=== PATIENT | male | born 1950 | race Caucasian/White ===

== ENCOUNTER → 2017-04-11 | Outpatient (CLI) | payer OTHER ==
[2016-05-11 12:08] VITALS: BMI 34.4
[~2017-04-11] MED LIST: ALBU8.5H IH; ALPR-429 PO; ALPR-448 PO; AMIL5TAB11 PO; AMLO-96 PO; AMLO-99 PO; AMOX-362 PO; ATOR10TA24 PO; ATOR10TA65 PO; AZAT50TA44 PO; CEFE2VIA13 IJ; CEPH500C24 PO; CHLOR25 PO; CIPR-344 PO; CITA-139 PO; CITA-141 PO; CYA1000 PO; CYAN100015 PO; CYAN100088 PO; CYAN1TAB4 SL; CYAN250T15 PO; DEX4 PO; DIPH0.5D12 IM; DOCU-202 PO; DOCU-416; DOCU-416 PO; FAMO20TA28 PO; FLU IM; FURO-45 PO; HYDR-385 PO; HYDR-4225 PO; IBUP-1671 PO; LEVO-85 PO; LEVO50TA86 PO; LORA-1455 PO; LOSA100T62 PO; LOSA25TA47 PO; LOSA25TA50 PO; LOSA50TA72 PO; MAGN400C PO; MAGN500T6 PO; METO-235 PO; METO-253 PO; METO50TA19 PO; ONDA4TAB PO; ONDA8TAB91 PO; ONDA8TAB94 PO; OXYC-373 PO; OXYC-823 PO; OXYC-865 PO; PANT20TA26 PO; PANT40TA65 PO; PENI-24 PO; PER PO; PHEN100T27 PO; PHEN200T32 PO; PNEU0.5D3 IM; ROS10 PO; ROSU20TA13 PO; SODI325T7 PO; SPIR25TA78 PO; SULF-198 PO; TAMS0.4C25 PO
[2017-04-11 14:47] LABS: PLATELET COUNT, AUTOMATED 134 K/uL (150-450)
== END ==
LOC: LAB 14:25
PROVIDERS: ATTEND Internal Medicine Nephrology
DX: I12.9 Hypertensive chronic kidney disease with stage 1 through stage 4 chronic kidney disease, or unspecified chronic kidney disease (principal); N18.3 Chronic kidney disease, stage 3 (moderate); R80.1 Persistent proteinuria, unspecified; D50.9 Iron deficiency anemia, unspecified
CPT/HCPCS: 36415; 82040; 82247; 82310; 82374; 82435; 82565; 82570; 82947; 83735; 84075; 84132; 84155; 84156; 84295; 84450; 84460; 84520; 85025

== ENCOUNTER 2017-05-09 16:00 | Emergency (ER) | payer OTHER ==
[2016-05-11 12:08] VITALS: Ht 177.8 cm; Wt 97.5 kg
[~2017-05-09] VITALS: Ht 177.8 cm; Wt 97.5 kg
[~2017-05-09 16:00] MED LIST changes: +HYDR30CR10 TOP
[2017-05-09] MEDS ORDERED: VITAMIN B 12 (16:16)
--- NOTE | 2017-05-09 16:19 | ER Report ---
History and Physical Time Seen By MD: 16:02 Hx. of Stated Complaint: PT PRESENTS WITH RECNET HX OF ELEVATED BP AND SWOLLEN LEGS FOR A FEW DAYS. CALLED HIS MD TO MAKE APPT, AND WAS TOLD TO COME HERE. PT STATES FEELS OK NOW (HOLDEN MILES DO) HPI/ROS CHIEF COMPLAINT: sob and lower extremity edema HISTORY OF PRESENT ILLNESS: Pts blood pressure has been elevated last few days 170/90. Pt has also noticed lower leg swelling b/l. Pt has felt some sob and chest tightness with walking last few days. pt denies cardiac ds. States he had catherization 10 yrs ago which was normal. Pt currently feeling well. no nausea. Denies sob when lying down. no fevers or coughs. REVIEW OF SYSTEMS: Constitutional: No fever, no chills. Eyes: No discharge. ENT: No sore throat. Cardiovascular: + chest pain, no palpitations, + lower extremity edema Respiratory: No cough, + shortness of breath. Gastrointestinal: No abdominal pain, no vomiting. Genitourinary: No hematuria. Musculoskeletal: No back pain. Skin: No rashes. Neurological: No headache. (HOLDEN MILES DO) Allergies: Coded Allergies: No Known Drug Allergies (Unverified , 05/09/17) Home Meds Active Scripts Hydrocortisone 2.5 % 30 GM CREAM (Hydrocortisone 2.5 % 30 GM CREAM) 2.5 % Cream.appl, 1 APPLIC TOP BID for 30 Days, #30 GM 1 Refill Prov:HIMANSHU VELEZ NPC 04/17/17 Alprazolam (XANAX) 0.5 Mg Tablet, 0.5 TAB PO BID Y for ANXIETY, #60 TAB Prov:ASIA STYLES MD 04/16/17 Rosuvastatin Calcium (Rosuvastatin Calcium) 20 Mg Tablet, 1 TAB PO DAILY, #90 TAB 3 Refills Prov:ASIA STYLES MD 04/03/17 Levothyroxine Sodium (LEVOTHYROXINE SODIUM) 50 Mcg Tablet, 1 TAB PO QAM, #90 TAB 3 Refills Prov:ASIA STYLES MD 10/14/16 Metoprolol Succinate (METOPROLOL SUCCINATE) 50 Mg Tab.er.24h, 0.5 TAB PO DAILY, #90 TAB 3 Refills Prov:ASIA STYLES MD 09/27/16 Amlodipine Besylate (AMLODIPINE BESYLATE) 10 Mg Tablet, 1 TAB PO QDAY, #90 TAB 3 Refills Prov:ASIA STYLES MD 06/03/16 Reported Medications [Vitamin B 12] No Conflict Check 05/09/17 Losartan Potassium (COZAAR) 25 Mg Tablet, 25 MG PO BID 04/03/17 Citalopram Hydrobromide (CITALOPRAM HBR) 20 Mg Tablet, 20 MG PO QDAY, #5 TAB 06/17/16 Past Medical/Surgical History Pmhx: sleep apnea, chf, uti, hypothyroid, hyperlipid, polyps in colon, bladder/ prostatesca, renal insufficiency, htn Pshx: iliostomy, kandi, prostectomy, cystectomy, nephrostomy tubes which have been removed. (HOLDEN MILES DO) Hx Smoking: No Smoking Status: Never Smoker Exposure to Second Hand Smoke?: No Hx Substance Use Disorder: No Hx Alcohol Use: No (HOLDEN MILES DO) Constitutional Vital Sign - Last 24 Hours 05/09/17 05/09/17 05/09/17 05/09/17 16:04 16:05 16:30 17:40 Temp 98.7 Pulse 71 63 Resp 20 26 B/P (MAP) 173/90 (117) 173/90 149/82 (104) 140/83 (102) Pulse Ox 94 91 O2 Delivery Room Air 05/09/17 05/09/17 05/09/17 05/09/17 17:45 18:15 18:45 19:15 Pulse 56 57 56 53 Resp 18 19 19 14 Pulse Ox 91 05/09/17 05/09/17 05/09/17 05/09/17 19:20 19:50 20:01 20:20 Pulse 52 52 51 Resp 14 18 16 B/P (MAP) 124/71 (88) Pulse Ox 89 05/09/17 05/09/17 20:30 20:50 Pulse 85 Resp 16 B/P (MAP) 127/74 (91) 132/82 (99) Pulse Ox 95 O2 Delivery Room Air Intake and Output 05/09/17 05/09/17 05/10/17 15:00 23:00 07:00 Intake Total 100 ml Balance 100 ml (HILDA MORRIS MD) Physical Exam General Appearance: The patient is alert, has no immediate need for airway protection and no signs of toxicity. Eyes: Pupils equal and round no pallor or injection, EOMI ENT: no pharyngeal erythema or exudates, Mucous membranes are moist, TM are nl b/l Respiratory: There are no retractions, lungs are clear to auscultation. Cardiovascular: Regular rate and rhythm. pulses are equal and symmetrical Gastrointestinal: Abdomen is soft and non tender, no masses, bowel sounds normal, no guarding, no rigidity or rebound Neurological: Cranial nerves II-XII grossly intact, no sensory or motor loss Skin: Warm and dry, no rashes. Musculoskeletal: Neck is supple non tender, no vertebral tenderness Extremities are nontender, +1 pitting edema b/l, full range of motion. DIFFERENTIAL DIAGNOSIS: After history and physical exam differential diagnosis was considered for chf, renal ds, electrolyte abnl, low albumin (LAURORA,HOLDEN V DO) Medical Decision Making Data Points Result Diagram: 05/09/17 1611 05/09/17 1611 Laboratory Hematology Test 05/09/17 16:11 05/09/17 19:58 05/09/17 20:49 Red Blood Count 3.89 M/uL (4.00-5.60) Mean Corpuscular Volume 81.3 fL (80.0-96.0) Mean Corpuscular Hemoglobin 28.3 pg (26.0-33.0) Mean Corpuscular Hemoglobin Concent 34.8 g/dL (32.0-36.0) Red Cell Distribution Width 15.8 % (11.5-14.5) Mean Platelet Volume 6.6 fL (7.2-11.1) Neutrophils (%) (Auto) 68.3 % (39.4-72.5) Lymphocytes (%) (Auto) 18.3 % (17.6-49.6) Monocytes (%) (Auto) 8.5 % (4.1-12.4) Eosinophils (%) (Auto) 4.2 % (0.4-6.7) Basophils (%) (Auto) 0.7 % (0.3-1.4) Nucleated RBC Relative Count (auto) 0.1 /100WBC Neutrophils # (Auto) 3.8 K/uL (2.0-7.4) Lymphocytes # (Auto) 1.0 K/uL (1.3-3.6) Monocytes # (Auto) 0.5 K/uL (0.3-1.0) Eosinophils # (Auto) 0.2 K/uL (0.0-0.5) Basophils # (Auto) 0.0 K/uL (0.0-0.1) Nucleated RBC Absolute Count (auto) 0.00 K/uL Sodium Level 138 mmol/L (137-145) Potassium Level 4.0 mmol/L (3.5-5.0) Chloride Level 105 mmol/L (98-107) Carbon Dioxide Level 19 mmol/L (22-30) Blood Urea Nitrogen 36 mg/dl (9-21) Creatinine 2.50 mg/dl (0.66-1.25) Glomerular Filtration Rate Calc 26.0 Random Glucose 105 mg/dl (75-110) Calcium Level 9.4 mg/dl (8.4-10.2) Magnesium Level 1.5 mg/dl (1.7-2.2) Total Bilirubin 0.7 mg/dl (0.2-1.3) Aspartate Amino Transf (AST/SGOT) 19 U/L (0-35) Alanine Aminotransferase (ALT/SGPT) 34 U/L (0-56) Alkaline Phosphatase 109 U/L (0-126) B-Type Natriuretic Peptide 19 pg/ml (0-100) Total Protein 7.3 gm/dl (6.3-8.2) Albumin 4.2 g/dl (3.5-5.0) Troponin I < 0.012 ng/ml Urine Color Straw Urine Clarity Clear Urine pH 6.0 pH (4.8-9.5) Urine Specific [place] 1.008 Urine Protein Negative mg/dL (NEGATIVE) Urine Glucose (UA) Negative mg/dL (NEGATIVE) Urine Ketones Negative mg/dL (NEGATIVE) Urine Blood Moderate (NEGATIVE) Urine Nitrite Negative (NEGATIVE) Urine Bilirubin Negative (NEGATIVE) Urine Urobilinogen Negative mg/dL (0.2-1.9) Urine Leukocyte Esterase Small (NEGATIVE) Urine RBC 10 /HPF (0-2/HPF) Urine WBC 12 /HPF (0-5/HPF) Urine Squamous Epithelial Cells Few /LPF (NONE-FEW) Urine Renal Epithelial Cells Few /LPF (NONE-FEW) Urine Bacteria Negative /HPF (NONE-FEW) Urine Mucus None /HPF (NONE-FEW) Chemistry Test 05/09/17 16:11 05/09/17 19:58 05/09/17 20:49 White Blood Count 5.6 k/uL (4.5-11.0) Red Blood Count 3.89 M/uL (4.00-5.60) Hemoglobin 11.0 g/dL (14.0-18.0) Hematocrit 31.6 % (42.0-52.0) Mean Corpuscular Volume 81.3 fL (80.0-96.0) Mean Corpuscular Hemoglobin 28.3 pg (26.0-33.0) Mean Corpuscular Hemoglobin Concent 34.8 g/dL (32.0-36.0) Red Cell Distribution Width 15.8 % (11.5-14.5) Platelet Count 109 K/uL (150-450) Mean Platelet Volume 6.6 fL (7.2-11.1) Neutrophils (%) (Auto) 68.3 % (39.4-72.5) Lymphocytes (%) (Auto) 18.3 % (17.6-49.6) Monocytes (%) (Auto) 8.5 % (4.1-12.4) Eosinophils (%) (Auto) 4.2 % (0.4-6.7) Basophils (%) (Auto) 0.7 % (0.3-1.4) Nucleated RBC Relative Count (auto) 0.1 /100WBC Neutrophils # (Auto) 3.8 K/uL (2.0-7.4) Lymphocytes # (Auto) 1.0 K/uL (1.3-3.6) Monocytes # (Auto) 0.5 K/uL (0.3-1.0) Eosinophils # (Auto) 0.2 K/uL (0.0-0.5) Basophils # (Auto) 0.0 K/uL (0.0-0.1) Nucleated RBC Absolute Count (auto) 0.00 K/uL Glomerular Filtration Rate Calc 26.0 Calcium Level 9.4 mg/dl (8.4-10.2) Magnesium Level 1.5 mg/dl (1.7-2.2) Total Bilirubin 0.7 mg/dl (0.2-1.3) Aspartate Amino Transf (AST/SGOT) 19 U/L (0-35) Alanine Aminotransferase (ALT/SGPT) 34 U/L (0-56) Alkaline Phosphatase 109 U/L (0-126) B-Type Natriuretic Peptide 19 pg/ml (0-100) Total Protein 7.3 gm/dl (6.3-8.2) Albumin 4.2 g/dl (3.5-5.0) Troponin I < 0.012 ng/ml Urine Color Straw Urine Clarity Clear Urine pH 6.0 pH (4.8-9.5) Urine Specific [place] 1.008 Urine Protein Negative mg/dL (NEGATIVE) Urine Glucose (UA) Negative mg/dL (NEGATIVE) Urine Ketones Negative mg/dL (NEGATIVE) Urine Blood Moderate (NEGATIVE) Urine Nitrite Negative (NEGATIVE) Urine Bilirubin Negative (NEGATIVE) Urine Urobilinogen Negative mg/dL (0.2-1.9) Urine Leukocyte Esterase Small (NEGATIVE) Urine RBC 10 /HPF (0-2/HPF) Urine WBC 12 /HPF (0-5/HPF) Urine Squamous Epithelial Cells Few /LPF (NONE-FEW) Urine Renal Epithelial Cells Few /LPF (NONE-FEW) Urine Bacteria Negative /HPF (NONE-FEW) Urine Mucus None /HPF (NONE-FEW) Urinalysis Test 05/09/17 20:49 Urine Color Straw Urine Clarity Clear Urine pH 6.0 pH (4.8-9.5) Urine Specific [place] 1.008 Urine Protein Negative mg/dL (NEGATIVE) Urine Glucose (UA) Negative mg/dL (NEGATIVE) Urine Ketones Negative mg/dL (NEGATIVE) Urine Blood Moderate (NEGATIVE) Urine Nitrite Negative (NEGATIVE) Urine Bilirubin Negative (NEGATIVE) Urine Urobilinogen Negative mg/dL (0.2-1.9) Urine Leukocyte Esterase Small (NEGATIVE) Urine RBC 10 /HPF (0-2/HPF) Urine WBC 12 /HPF (0-5/HPF) Urine Squamous Epithelial Cells Few /LPF (NONE-FEW) Urine Renal Epithelial Cells Few /LPF (NONE-FEW) Urine Bacteria Negative /HPF (NONE-FEW) Urine Mucus None /HPF (NONE-FEW) (HILDA MORRIS MD) EKG/Imaging EKG Interpretation nsr @ 60 (HOLDEN MILES DO) ED Course/Re-evaluation Clinical Indication for ER IV: IV Access ED Course 05/09/2017 5:05:07 pm Will replace pts magnesium. Pt states he has had trouble with his mag levels ever since he had chemo and surgery. Recommend he stays for second troponin. 05/09/2017 5:52:14 pm Magnesium being replaced. Awaiting second troponin signing out to Dr. Morris. Decision to Disposition Date: May 09, 2017 (HOLDEN MILES DO) ED Course I discussed this patient with Dr. Miles at shift change an assumed care. Patient had some shortness of breath and some mild lower extremity edema. Initial troponin was negative. Negative labs initially as noted. Second troponin done and negative. Reviewed labs with the patient. He has an appointment with Dr. Styles on Friday which he will keep. Recommended discussing possible stress testing with Dr. Styles. Decision to Disposition Date: May 09, 2017 Decision to Disposition Time: 20:38 (HILDA MORRIS MD) Depart Departure Latest Vital Signs Vital Signs Date Time Temp Pulse Resp B/P (MAP) Pulse Ox O2 Delivery O2 Flow Rate FiO2 05/09/17 20:50 85 16 132/82 (99) 95 Room Air 05/09/17 16:05 98.7 (HILDA MORRIS MD) Core Temperature (Celsius): 37.11 (HOLDEN MILES DO) Impression: Primary Impression: Hypomagnesemia Additional Impression: Shortness of breath Condition: Improved Disposition: HOME OR SELF-CARE Referrals: ASIA STYLES MD (PCP) Patient Instructions: Dyspnea (ED), Hypomagnesemia (ED) Additional Instructions: Keep your follow-up appointment with Dr. Styles next week. Discuss possible need for stress testing with her. Light to moderate activity this weekend. Problem Qualifiers HOLDEN MILES DO May 09, 2017 16:19 IHLDA MORRIS MD May 09, 2017 18:47
[2017-05-09 16:21] LABS: PLATELET COUNT, AUTOMATED 109 K/uL (150-450)
--- NOTE | 2017-05-09 16:32 | EKG ---
FACILITY: [facility] [place] PATIENT NAME: ANKITA BLACKWOOD : [id number] MR: [id number] V: [id number] EXAM DATE: ORDERING PHYSICIAN: HOLDEN MILES TECHNOLOGIST: Test Reason : Blood Pressure : / mmHG Vent. Rate : 063 BPM Atrial Rate : 063 BPM P-R Int : 160 ms QRS Dur : 100 ms QT Int : 430 ms P-R-T Axes : 035 040 035 degrees QTc Int : 440 ms Normal sinus rhythm Normal ECG When compared with ECG of 22-DEC-2016 11:58, No significant change was found Confirmed by VERONICA CRAWFORD ([id number]) on 05/10/2017 7:45:04 AM Referred By: Confirmed By:VERONICA CRAWFORD
[2017-05-09] MEDS ORDERED: MAGNESIUM SUL 50% 1GM/2ML VIAL IVP ONE (16:50)
[2017-05-09] MEDS ORDERED: cloNIDine HCL 0.1 MG TAB PO ONE (16:50)
[2017-05-09] MEDS ORDERED: NS(*) 0.9% 100 ML BAG 100 ML ONE (16:56)
--- NOTE | 2017-05-09 17:18 | RADIOLOGY IMAGING REPORT ---
FACILITY: [facility] PATIENT NAME: Christiano Montes : 1950 MR: [id number] V: [id number] EXAM DATE: ORDERING PHYSICIAN: HOLDEN MILES TECHNOLOGIST: Location: [facility] Patient: Christiano Montes : 1950 Visit/Account:[id number] Date of Sevice: 05/09/2017 INDICATION: Chest Pain. DATE: 05/09/2017 5:07 PM. TECHNIQUE: CHEST PA AND LAT COMPARISON: None FINDINGS: Heart size is normal. No effusion, consolidation, or pneumothorax. IMPRESSION: No acute findings. Report Dictated By: Chuyita Montes De Oca MD at 05/09/2017 5:07 PM Report E-Signed By: Chuyita Montes De Oca MD at 05/09/2017 5:13 PM WSN:[id number]
[2017-05-09 20:50] VITALS: BP 132/82
== END 2017-05-09 20:51 | disposition home or self-care (01) ==
LOC: ER 16:32
DX: E83.42 Hypomagnesemia (principal); R06.02 Shortness of breath
CPT/HCPCS: 36415; 71046; 81001; 83735; 83880; 84484; 85025; 87077; 87088; 87186; 93005; 96365; 99284; J3475; J7050; 82040; 82247; 82310; 82374; 82435; 82565; 82947; 84075; 84132; 84155; 84295; 84450; 84460; 84520

== ENCOUNTER 2017-05-22 17:03 | Emergency (ER) | payer OTHER ==
[2016-05-11 12:08] VITALS: Ht 177.8 cm; Wt 104.3 kg
[~2017-05-22] VITALS: Ht 177.8 cm; Wt 104.3 kg
[~2017-05-22 17:03] MED LIST changes: +VITAMIN B 12
[2017-05-22 17:17] VITALS: BP 163/78
[2017-05-22] MEDS ORDERED: NYST15PO4 TP (17:45)
--- NOTE | 2017-05-22 17:49 | ER Report ---
History and Physical Time Seen By MD: 17:43 Hx. of Stated Complaint: pt notes red ring around stoma, denies itching burning or pain HPI/ROS CHIEF COMPLAINT: Red ring around stoma site HISTORY OF PRESENT ILLNESS: Patient is a 66-year-old male who has a history of a bladder stoma he recently was started on antibiotics for urinary tract infection. He currently is taking Cipro and clindamycin. Today while changing of the stoma bag they noticed a red ring on the skin around the stoma. Patient denies any discomfort burning or pain. Allergies: Coded Allergies: No Known Drug Allergies (Unverified , 05/22/17) Home Meds Active Scripts Nystatin 100,000 Unit/Gm Top Powder (NYSTATIN 100,000 UNIT/GM TOP POWDER) 15 Gm Powder, 15 GM TP BID for 10 Days, #1 TUBE 0 Refills Prov:BERTO ZAMUDIO MD 05/22/17 Hydrocortisone 2.5 % 30 GM CREAM (Hydrocortisone 2.5 % 30 GM CREAM) 2.5 % Cream.appl, 1 APPLIC TOP BID for 30 Days, #30 GM 1 Refill Prov:HIMANSHU VELEZ NPC 04/17/17 Alprazolam (XANAX) 0.5 Mg Tablet, 0.5 TAB PO BID Y for ANXIETY, #60 TAB Prov:ASIA LOPEZ MD 04/16/17 Rosuvastatin Calcium (Rosuvastatin Calcium) 20 Mg Tablet, 1 TAB PO DAILY, #90 TAB 3 Refills Prov:ASIA LOPEZ MD 04/03/17 Levothyroxine Sodium (LEVOTHYROXINE SODIUM) 50 Mcg Tablet, 1 TAB PO QAM, #90 TAB 3 Refills Prov:ASIA LOPEZ MD 10/14/16 Metoprolol Succinate (METOPROLOL SUCCINATE) 50 Mg Tab.er.24h, 0.5 TAB PO DAILY, #90 TAB 3 Refills Prov:ASIA LOPEZ MD 09/27/16 Amlodipine Besylate (AMLODIPINE BESYLATE) 10 Mg Tablet, 1 TAB PO QDAY, #90 TAB 3 Refills Prov:ASIA LOPEZ MD 06/03/16 Reported Medications [Vitamin B 12] No Conflict Check 05/09/17 Losartan Potassium (COZAAR) 25 Mg Tablet, 25 MG PO BID 04/03/17 Citalopram Hydrobromide (CITALOPRAM HBR) 20 Mg Tablet, 20 MG PO QDAY, #5 TAB 06/17/16 Past Medical/Surgical History Bladder stoma Hx Smoking: No Smoking Status: Never Smoker Exposure to Second Hand Smoke?: No Hx Substance Use Disorder: No Hx Alcohol Use: No Constitutional Vital Sign - Last 24 Hours 05/22/17 17:17 Temp 98.3 Pulse 54 Resp 20 B/P (MAP) 163/78 Pulse Ox 94 O2 Delivery Room Air Physical Exam General appearance: Alert no distress. Respiratory: Chest is non tender, lungs are clear to auscultation. Cardiac: Regular rate and rhythm [ ] Skin: Erythematous ring around bladder stoma. There does not appear to be any skin breakdown. [ ] Medical Decision Making ED Course/Re-evaluation ED Course Suspect patient has fungal infection of the skin plan will be topical nystatin powder Decision to Disposition Date: May 22, 2017 Decision to Disposition Time: 17:44 Depart Departure Latest Vital Signs Vital Signs Date Time Temp Pulse Resp B/P (MAP) Pulse Ox O2 Delivery O2 Flow Rate FiO2 05/22/17 17:17 98.3 54 20 163/78 94 Room Air Core Temperature (Celsius): 37.11 Impression: Primary Impression: Tinea corporis Condition: Condition Unchanged Disposition: HOME OR SELF-CARE Referrals: ASIA LOPEZ MD (PCP) New Scripts Nystatin 100,000 Unit/Gm Top Powder (NYSTATIN 100,000 UNIT/GM TOP POWDER) 15 Gm Powder 15 GM TP BID for 10 Days, #1 TUBE 0 Refills Prov: BERTO ZAMUDIO MD 05/22/17 Patient Instructions: Tinea Corporis (GEN) Additional Instructions: Apply nystatin powder topically to the skin area twice a day for the next 10-14 days. If symptoms worsen at any time return to the emergency department for further evaluation. BERTO ZAMUDIO MD May 22, 2017 17:49
[2017-05-22] MEDS ORDERED: NYSTATIN 100,000 U/GM PWD 15GM TP SCH (21:00)
== END 2017-05-22 17:57 | disposition home or self-care (01) ==
LOC: ER 17:29
DX: B35.4 Tinea corporis (principal)
CPT/HCPCS: 99281

== ENCOUNTER → 2017-06-05 | Outpatient (CLI) | payer OTHER ==
[2016-05-11 12:08] VITALS: BMI 34.4
[~2017-06-05] MED LIST changes: +NYST15PO4 TP; +REGADENOSON 0.4 MG/5 ML SYR ONE
--- NOTE | 2017-06-05 15:56 | RADIOLOGY IMAGING REPORT ---
FACILITY: [facility] - [place] PATIENT NAME: Christiano Montes : 1950 MR: [id number] V: [id number] EXAM DATE: ORDERING PHYSICIAN: ASIA LOPEZ TECHNOLOGIST: Location: [facility] - [place] Patient: Christiano Montes : 1950 Visit/Account:[id number] Date of Sevice: 06/05/2017 EXAMINATION: Single isotope SPECT imaging with regadenoson infusion and gated SPECT imaging. DATE OF EXAMINATION: June 05, 2017. DATE OF INTERPRETATION: June 05, 2017. REQUESTING PHYSICIAN: ASIA LOPEZ. INDICATION: The patient is a 66-year-old male evaluated for chest pain. PROCEDURE: After informed consent the patient received an intravenous injection of 11.5 mCi of Tc-99 m sestamibi followed at an appropriate time interval by rest imaging. The patient then subsequently received an intravenous infusion of 0.4 mg of regadenoson per protocol without complication. Resting heart rate was 46 bpm with a peak heart rate of 71 bpm. Blood pressure at rest was 141 / 92 and fol lowing infusion was 143 / 86. Baseline EKG demonstrates normal sinus rhythm. There were no EKG dacosta ges of ischemia following infusion. Symptoms were nonspecific. The patient then received an intrave nous injection of 29.5 mCi of Tc-99m sestamibi followed by stress imaging. RAW DATA: Examination of the summed raw data revealed a good quality study. MYOCARDIAL PERFUSION: The tomographic images demonstrate normal perfusion throughout. GATED IMAGES: The gated images demonstrate normal wall motion and thickening. Calculated ejection fr action is 64%.. IMPRESSION: 1. Normal electrocardiogram 2. Normal myocardial perfusion scan. 3. Normal LV systolic function; LVEF 64%. 4. Based on the results of this exam, the patient appears to be at intermediate risk for future cardi ovascular events. Report Dictated By: Kit Rider at 06/05/2017 3:49 PM Report E-Signed By: Kit Rider at 06/05/2017 3:52 PM WSN:[id number]
== END ==
LOC: NUC 00:55
PROVIDERS: ATTEND Emergency Medicine
DX: R07.89 Other chest pain (principal)
CPT/HCPCS: 78452; 93017; A9500; J2785

== ENCOUNTER → 2017-06-26 | Outpatient (CLI) | payer OTHER ==
[2016-05-11 12:08] VITALS: BMI 34.4
[~2017-06-26] MED LIST changes: +AZIT-18 PO; +BENZ200C15 PO; +IPRA3AMP21 IH; +Magic Mouthwash; -REGADENOSON 0.4 MG/5 ML SYR ONE
--- NOTE | 2017-06-26 13:28 | RADIOLOGY IMAGING REPORT ---
[facility] PATIENT NAME: Christiano Montes : 1950 MR: [id number] V: [id number] EXAM DATE: ORDERING PHYSICIAN: RICHI GOLDSMITH TECHNOLOGIST: Location: [facility] Patient: Christiano Montes : 1950 Visit/Account:[id number] Date of Sevice: 06/26/2017 2 VIEWS CHEST INDICATION: Cough, wheeze and shortness of breath. COMPARISON: None available FINDINGS: There is a patchy infiltrate within the right lower lobe compatible with a right lower lobe pneumonia . This is asymmetric to the left side. Left lung is clear and well aerated. No effusion or pneumothor ax is seen. Heart size and mediastinal contours are normal. IMPRESSION: 1. Patchy right lower lobe infiltrate posteriorly consistent with a right lower lobe pneumonia. Follo w-up radiographs after treatment recommended to demonstrate complete resolution. Report Dictated By: Raul Peña at 06/26/2017 1:23 PM Report E-Signed By: Raul Peña at 06/26/2017 1:24 PM WSN:[id number]
--- NOTE | 2017-06-26 13:52 | EKG ---
FACILITY: [facility] - [place] PATIENT NAME: ANKITA BLACKWOOD : [id number] MR: [id number] V: [id number] EXAM DATE: ORDERING PHYSICIAN: RICHI GOLDSMITH TECHNOLOGIST: HERMAN JOSHI Test Reason : SOB Blood Pressure : / mmHG Vent. Rate : 052 BPM Atrial Rate : 052 BPM P-R Int : 134 ms QRS Dur : 092 ms QT Int : 436 ms P-R-T Axes : 056 039 014 degrees QTc Int : 405 ms Sinus bradycardia Otherwise normal ECG When compared with ECG of 09-MAY-2017 16:15, No significant change was found Confirmed by VERONICA CRAWFORD ([id number]) on 06/26/2017 4:41:51 PM Referred By: RICHI GOLDSMITH Confirmed By:VERONICA CRAWFORD
== END ==
LOC: RAD 11:48
PROVIDERS: ATTEND Nurse Practitioner Family
DX: J18.0 Bronchopneumonia, unspecified organism (principal)
CPT/HCPCS: 71046

== ENCOUNTER → 2017-07-01 | Outpatient (CLI) | payer OTHER ==
[2016-05-11 12:08] VITALS: BMI 34.4
--- NOTE | 2017-07-01 15:48 | RADIOLOGY IMAGING REPORT ---
[place] [facility] [place] Christiano Montes : 1950 MR: [id number] V: [id number] EXAM DATE: ORDERING PHYSICIAN: RICHI GOLDSMITH TECHNOLOGIST: Location[place] [facility] [place] Patient: Christiano Montes : 1950 Visit/Account:[id number] Date of Sevice: 07/01/2017 Technique: CHEST PA AND LAT HISTORY: R lower lobe pneumonia Comparison studies: Chest radiographs 05/29/2017 FINDINGS: There is decreased conspicuity patchy right lower lobe airspace opacities. There remains r ight midlung linear scarring and/or atelectasis. The cardiac silhouette is unchanged. IMPRESSION: 1. Interval improvement of the right lower lobe airspace opacities concerning for pneumonia. 2. Chronic lung findings. Report Dictated By: Parth Kumar DO at 07/01/2017 3:42 PM Report E-Signed By: Parth Kumar DO at 07/01/2017 3:43 PM WSN:[id number]
== END ==
LOC: RAD 14:37
PROVIDERS: ATTEND Nurse Practitioner Family
DX: J18.9 Pneumonia, unspecified organism (principal); R91.8 Other nonspecific abnormal finding of lung field
CPT/HCPCS: 71046

== ENCOUNTER 2017-07-18 18:25 | Emergency (ER) | payer OTHER ==
[2016-05-11 12:08] VITALS: Wt 104.3 kg
--- NOTE | 2017-07-18 18:35 | ER Report ---
History and Physical Time Seen By MD: 18:35 Hx. of Stated Complaint: Fever, chills, back pain HPI/ROS 66 year old male alert history of prostate cancer August 2013 PSA was 4.5 he had a prostatectomy at that time thrombocytopenia mild with platelets history of bladder cancer with a total cholecystectomy bilateral nephrostomy tubes removed in 1216. Last 2 days of low-grade fever chills cloudy urine low back pain Allergies: Coded Allergies: No Known Drug Allergies (Unverified , 05/22/17) Home Meds Active Scripts Ciprofloxacin Hcl (CIPROFLOXACIN HCL) 500 Mg Tablet, 500 MG PO Q12H, #14 TAB Prov:YOSELYN HERRING 07/18/17 Hydromorphone Hcl (DILAUDID) 2 Mg Tablet, 2 MG PO QID, #30 Prov:YOSELYN HERRING 07/18/17 Benzonatate (BENZONATATE) 200 Mg Capsule, 200 MG PO TID Y for COUGH, #30 CAP Prov:ASIA LOPEZ MD 07/02/17 [Magic Mouthwash] No Conflict Check Magic Mouthwash (1:1:1 viscous lidocaine, maalox, benadryl). Si tspn by mouth every 1-2 hours prn pain, swish and swallow. Dispense 180ml. Prov:RICHI GOLDSMITH-BC 06/26/17 Albuterol Sulfate 90 Mcg/Act (PROAIR HFA 90 MCG/ACT) 8.5 Gm Hfa.aer.ad, 2 PUFF IH Q4-6H, #1 INHALER Prov:RICHI GOLDSMITH-SALVADOR 06/26/17 Nystatin 100,000 Unit/Gm Top Powder (NYSTATIN 100,000 UNIT/GM TOP POWDER) 15 Gm Powder, 15 GM TP BID for 10 Days, #1 TUBE 0 Refills Prov:BERTO ZAMUDIO MD 05/22/17 Hydrocortisone 2.5 % 30 GM CREAM (Hydrocortisone 2.5 % 30 GM CREAM) 2.5 % Cream.appl, 1 APPLIC TOP BID for 30 Days, #30 GM 1 Refill Prov:HIMANSHU VELEZ NPC 04/17/17 Alprazolam (XANAX) 0.5 Mg Tablet, 0.5 TAB PO BID Y for ANXIETY, #60 TAB Prov:ASIA LOPEZ MD 04/16/17 Rosuvastatin Calcium (Rosuvastatin Calcium) 20 Mg Tablet, 1 TAB PO DAILY, #90 TAB 3 Refills Prov:ASIA LOPEZ MD 04/03/17 Levothyroxine Sodium (LEVOTHYROXINE SODIUM) 50 Mcg Tablet, 1 TAB PO QAM, #90 TAB 3 Refills Prov:ASIA LOPEZ MD 10/14/16 Metoprolol Succinate (METOPROLOL SUCCINATE) 50 Mg Tab.er.24h, 0.5 TAB PO DAILY, #90 TAB 3 Refills Prov:ASIA LOPEZ MD 09/27/16 Amlodipine Besylate (AMLODIPINE BESYLATE) 10 Mg Tablet, 1 TAB PO QDAY, #90 TAB 3 Refills Prov:ASIA LOPEZ MD 06/03/16 Reported Medications [Vitamin B 12] No Conflict Check 05/09/17 Losartan Potassium (COZAAR) 25 Mg Tablet, 25 MG PO BID 04/03/17 Citalopram Hydrobromide (CITALOPRAM HBR) 20 Mg Tablet, 20 MG PO QDAY, #5 TAB 06/17/16 Past Medical/Surgical History History of cholecystectomy in 2012 history of prostatectomy 2014 history of cystectomy bilateral nephrostomy tubes removed in 2016 history of pneumonia history of sleep apnea history of GERD history of acute renal your baseline creatinine is 2.5 history of anemia thrombocytopenia Hx Smoking: No Smoking Status: Never Smoker Exposure to Second Hand Smoke?: No Hx Substance Use Disorder: No Hx Alcohol Use: No Family History of: HTN Constitutional Vital Sign - Last 24 Hours 07/18/17 07/18/17 07/18/17 07/18/17 18:45 18:55 19:10 19:36 Temp 99.1 Pulse 73 75 74 Resp 20 B/P (MAP) 185/96 159/94 (115) Pulse Ox 96 98 95 O2 Delivery Room Air 07/18/17 07/18/17 07/18/17 07/18/17 19:40 20:00 20:05 20:20 Pulse 74 70 69 B/P (MAP) 169/97 (121) Pulse Ox 93 94 94 07/18/17 07/18/17 07/18/17 07/18/17 20:30 20:35 21:00 21:05 Pulse 68 66 B/P (MAP) 166/90 (115) 162/84 (110) Pulse Ox 95 96 Physical Exam General Appearance: Chronically ill [ ] Eyes: Pupils equal and round no injection. Respiratory: Chest is non tender, lungs are decreased bilateral bases. Cardiac: regular rate and rhythm [ ] Gastrointestinal: Abdomen is soft and non tender, no masses, bowel sounds normal. ileostomywith cloudy urine. Musculoskeletal: Neck: Neck is supple and non tender. Extremities have full range of motion and are non tender. Skin: No rashes or lesions. [ ] DIFFERENTIAL DIAGNOSIS: After history and physical exam differential diagnosis was considered for [ uti , sepsis] Medical Decision Making Data Points Result Diagram: 07/18/17192507/18/171925 Laboratory Hematology Test 07/18/17 18:44 07/18/17 19:26 Urine Color Straw Urine Clarity Clear Urine pH 6.0 pH (4.8-9.5) Urine Specific [place] 1.005 Urine Protein Negative mg/dL (NEGATIVE) Urine Glucose (UA) Negative mg/dL (NEGATIVE) Urine Ketones Negative mg/dL (NEGATIVE) Urine Blood Small (NEGATIVE) Urine Nitrite Negative (NEGATIVE) Urine Bilirubin Negative (NEGATIVE) Urine Urobilinogen Negative mg/dL (0.2-1.9) Urine Leukocyte Esterase Moderate (NEGATIVE) Urine RBC 1 /HPF (0-2/HPF) Urine WBC 32 /HPF (0-5/HPF) Urine Squamous Epithelial Cells Few /LPF (NONE-FEW) Urine Bacteria Moderate /HPF (NONE-FEW) Urine Mucus None /HPF (NONE-FEW) Red Blood Count 4.31 M/uL (4.00-5.60) Mean Corpuscular Volume 83.3 fL (80.0-96.0) Mean Corpuscular Hemoglobin 29.2 pg (26.0-33.0) Mean Corpuscular Hemoglobin Concent 35.1 g/dL (32.0-36.0) Red Cell Distribution Width 14.0 % (11.5-14.5) Mean Platelet Volume 7.1 fL (7.2-11.1) Neutrophils (%) (Auto) 76.6 % (39.4-72.5) Lymphocytes (%) (Auto) 12.2 % (17.6-49.6) Monocytes (%) (Auto) 6.9 % (4.1-12.4) Eosinophils (%) (Auto) 3.9 % (0.4-6.7) Basophils (%) (Auto) 0.4 % (0.3-1.4) Nucleated RBC Relative Count (auto) 0.1 /100WBC Neutrophils # (Auto) 5.2 K/uL (2.0-7.4) Lymphocytes # (Auto) 0.8 K/uL (1.3-3.6) Monocytes # (Auto) 0.5 K/uL (0.3-1.0) Eosinophils # (Auto) 0.3 K/uL (0.0-0.5) Basophils # (Auto) 0.0 K/uL (0.0-0.1) Nucleated RBC Absolute Count (auto) 0.00 K/uL Sodium Level 142 mmol/L (137-145) Potassium Level 4.4 mmol/L (3.5-5.0) Chloride Level 107 mmol/L (98-107) Carbon Dioxide Level 18 mmol/L (22-30) Blood Urea Nitrogen 32 mg/dl (9-21) Creatinine 2.80 mg/dl (0.66-1.25) Glomerular Filtration Rate Calc 22.8 Random Glucose 99 mg/dl (75-110) Lactate 1.2 mmol/L (0.7-2.1) Calcium Level 9.3 mg/dl (8.4-10.2) Magnesium Level 1.3 mg/dl (1.7-2.2) Total Bilirubin 0.6 mg/dl (0.2-1.3) Aspartate Amino Transf (AST/SGOT) 24 U/L (0-35) Alanine Aminotransferase (ALT/SGPT) 35 U/L (0-56) Alkaline Phosphatase 123 U/L (0-126) Total Protein 7.6 gm/dl (6.3-8.2) Albumin 4.4 g/dl (3.5-5.0) Amylase Level 47 U/L (0-110) Lipase 126 U/L (23-300) Chemistry Test 07/18/17 18:44 07/18/17 19:26 Urine Color Straw Urine Clarity Clear Urine pH 6.0 pH (4.8-9.5) Urine Specific [place] 1.005 Urine Protein Negative mg/dL (NEGATIVE) Urine Glucose (UA) Negative mg/dL (NEGATIVE) Urine Ketones Negative mg/dL (NEGATIVE) Urine Blood Small (NEGATIVE) Urine Nitrite Negative (NEGATIVE) Urine Bilirubin Negative (NEGATIVE) Urine Urobilinogen Negative mg/dL (0.2-1.9) Urine Leukocyte Esterase Moderate (NEGATIVE) Urine RBC 1 /HPF (0-2/HPF) Urine WBC 32 /HPF (0-5/HPF) Urine Squamous Epithelial Cells Few /LPF (NONE-FEW) Urine Bacteria Moderate /HPF (NONE-FEW) Urine Mucus None /HPF (NONE-FEW) White Blood Count 6.7 k/uL (4.5-11.0) Red Blood Count 4.31 M/uL (4.00-5.60) Hemoglobin 12.6 g/dL (14.0-18.0) Hematocrit 35.9 % (42.0-52.0) Mean Corpuscular Volume 83.3 fL (80.0-96.0) Mean Corpuscular Hemoglobin 29.2 pg (26.0-33.0) Mean Corpuscular Hemoglobin Concent 35.1 g/dL (32.0-36.0) Red Cell Distribution Width 14.0 % (11.5-14.5) Platelet Count 111 K/uL (150-450) Mean Platelet Volume 7.1 fL (7.2-11.1) Neutrophils (%) (Auto) 76.6 % (39.4-72.5) Lymphocytes (%) (Auto) 12.2 % (17.6-49.6) Monocytes (%) (Auto) 6.9 % (4.1-12.4) Eosinophils (%) (Auto) 3.9 % (0.4-6.7) Basophils (%) (Auto) 0.4 % (0.3-1.4) Nucleated RBC Relative Count (auto) 0.1 /100WBC Neutrophils # (Auto) 5.2 K/uL (2.0-7.4) Lymphocytes # (Auto) 0.8 K/uL (1.3-3.6) Monocytes # (Auto) 0.5 K/uL (0.3-1.0) Eosinophils # (Auto) 0.3 K/uL (0.0-0.5) Basophils # (Auto) 0.0 K/uL (0.0-0.1) Nucleated RBC Absolute Count (auto) 0.00 K/uL Glomerular Filtration Rate Calc 22.8 Lactate 1.2 mmol/L (0.7-2.1) Calcium Level 9.3 mg/dl (8.4-10.2) Magnesium Level 1.3 mg/dl (1.7-2.2) Total Bilirubin 0.6 mg/dl (0.2-1.3) Aspartate Amino Transf (AST/SGOT) 24 U/L (0-35) Alanine Aminotransferase (ALT/SGPT) 35 U/L (0-56) Alkaline Phosphatase 123 U/L (0-126) Total Protein 7.6 gm/dl (6.3-8.2) Albumin 4.4 g/dl (3.5-5.0) Amylase Level 47 U/L (0-110) Lipase 126 U/L (23-300) Urinalysis Test 07/18/17 18:44 Urine Color Straw Urine Clarity Clear Urine pH 6.0 pH (4.8-9.5) Urine Specific [place] 1.005 Urine Protein Negative mg/dL (NEGATIVE) Urine Glucose (UA) Negative mg/dL (NEGATIVE) Urine Ketones Negative mg/dL (NEGATIVE) Urine Blood Small (NEGATIVE) Urine Nitrite Negative (NEGATIVE) Urine Bilirubin Negative (NEGATIVE) Urine Urobilinogen Negative mg/dL (0.2-1.9) Urine Leukocyte Esterase Moderate (NEGATIVE) Urine RBC 1 /HPF (0-2/HPF) Urine WBC 32 /HPF (0-5/HPF) Urine Squamous Epithelial Cells Few /LPF (NONE-FEW) Urine Bacteria Moderate /HPF (NONE-FEW) Urine Mucus None /HPF (NONE-FEW) ED Course/Re-evaluation ED Course Patient's magnesium was 1.3 replace with 1 g of magnesium IV piggyback his urine is moderate leukoesterase 35 white blood cells the urine was cultured M did give him a gram of Rocephin IV piggyback did talk to hospitalist Dr. Vitor Flanagan about this patient he actually visited with this patient as well we will send patient home with oral pain medication Dilaudid 4 times a day when necessary #30 no refills and Cipro 500 twice a day for 7 days prescription given we'll have him follow up in 5 days for repeat lab work for comprehensive profile and magnesium does report go to Dr. singh and Dr. Garcia Re-evaluation Patient feeling some better after treatment with his wanting to go home has been given precautions to return for worsening of symptoms increased fever chills Decision to Disposition Date: Jul 18, 2017 Decision to Disposition Time: 20:23 Depart Departure Latest Vital Signs Vital Signs Date Time Temp Pulse Resp B/P (MAP) Pulse Ox O2 Delivery O2 Flow Rate FiO2 07/18/17 21:05 66 96 07/18/17 21:00 162/84 (110) 07/18/17 18:45 99.1 20 Room Air Core Temperature (Celsius): 37.11 Impression: Primary Impression: UTI (urinary tract infection) Additional Impression: Back pain Condition: Improved Disposition: HOME OR SELF-CARE Referrals: ASIA LOPEZ MD (PCP) 2 Days New Scripts Ciprofloxacin Hcl (CIPROFLOXACIN HCL) 500 Mg Tablet 500 MG PO Q12H, #14 TAB Prov: YOSELYN HERRING 07/18/17 Hydromorphone Hcl (DILAUDID) 2 Mg Tablet 2 MG PO QID, #30 Prov: YOSELYN HERRING 07/18/17 Patient Instructions: Acute Low Back Pain (ED), Urinary Tract Infection in Men (DC) Additional Instructions: Call urologist on Friday and review culture report, labs repeated in 5 days or return for any worsening of symptoms or continued fever or chills Problem Qualifiers YOSELYN HERRING Jul 18, 2017 18:35
[2017-07-18] MEDS ORDERED: NS(*) 0.9% 1000 ML BAG 1,000 ML IV ONE (19:07)
--- NOTE | 2017-07-18 19:11 | RADIOLOGY IMAGING REPORT ---
FACILITY: [facility] - [place] PATIENT NAME: Christiano Montes : 1950 MR: [id number] V: [id number] EXAM DATE: ORDERING PHYSICIAN: YOSELYN HERRING TECHNOLOGIST: Location: [facility] Patient: Christiano Montes : 1950 Visit/Account:[id number] Date of Sevice: 07/18/2017 CHEST SINGLE AP Indication: Cough Comparison: Chest x-ray 07/01/2017 Findings: Lungs: Linear scarring right upper lung zone with a nodular component is unchanged. The left lung is clear. Mediastinum/pulmonary vasculature: Heart size and pulmonary vasculature are normal. Bones/soft tissues: Normal. IMPRESSION: 1. Stable linear scarring with nodular component in the right upper lobe. 2. Clear left lung. 3. No evidence of acute airspace opacity or pneumonia. Report Dictated By: Samm Lazcano at 07/18/2017 7:05 PM Report E-Signed By: Samm Lazcano at 07/18/2017 7:07 PM WSN:[id number]
--- NOTE | 2017-07-18 19:17 | EKG ---
FACILITY: [facility] PATIENT NAME: ANKITA BLACKWOOD : [id number] MR: [id number] V: [id number] EXAM DATE: ORDERING PHYSICIAN: YOSELYN HERRING TECHNOLOGIST: Jameson Parsons Reason : Blood Pressure : / mmHG Vent. Rate : 074 BPM Atrial Rate : 074 BPM P-R Int : 166 ms QRS Dur : 086 ms QT Int : 374 ms P-R-T Axes : 057 028 015 degrees QTc Int : 415 ms Normal sinus rhythm Normal ECG When compared with ECG of 26-JUN-2017 10:25, No significant change was found Confirmed by DARA KATE ([id number]) on 07/18/2017 11:58:49 PM Referred By: Confirmed By:DARA KATE
[2017-07-18 19:41] LABS: PLATELET COUNT, AUTOMATED 111 K/uL (150-450)
[2017-07-18] MEDS ORDERED: cefTRIAXone 1 GM VIAL IVP ONE (20:10)
[2017-07-18] MEDS ORDERED: MAGNESIUM SUL/D5W* 1 GM/100 ML 100 ML IVPB ONE (20:10)
[2017-07-18] MEDS ORDERED: fentaNYL CITR 100 MCG/2 ML AMP IVP ONE (21:05)
--- NOTE | 2017-07-18 21:32 | RADIOLOGY IMAGING REPORT ---
FACILITY: [facility] - [place] PATIENT NAME: Christiano Montes : 1950 MR: [id number] V: [id number] EXAM DATE: ORDERING PHYSICIAN: YOSELYN HERRING TECHNOLOGIST: Location: [facility] Patient: Christiano Montes : 1950 Visit/Account:[id number] Date of Sevice: 07/18/2017 ABDOMEN/PELVIS W/O CONTRAST EXAMINATION: CT abdomen/pelvis without IV contrast CT abdomen/ pelvis with IV contrast HISTORY: History of bladder cancer TECHNIQUE: CT scan of the abdomen and pelvis performed from the lung base through pubic symphysis wit hout IV contrast. Reconstructed sagittal and coronal scans were obtained as well. One of the following dose optimization techniques was utilized in the performance of this exam: Autom ated exposure control; adjustment of the mA and/or kV according to the patient's size; or use of an i terative reconstruction technique. Specific details can be referenced in the facility's radiology C T exam operational policy. COMPARISON STUDIES: 02/21/2017 FINDINGS: Please note that this exam was tailored for detection of urinary stones. Portions of the upper abdome n may not be included. Also, with intravenous contrast, sensitivity to detection of parenchymal disea se is limited. Right kidney and ureter: Moderate pelvicalyceal ureteral dilatation of the right collecting system do wn to the ileal conduit. The previously seen nephroureteral stent extending percutaneously through th e kidney and to the ileal conduit has been removed. The degree of dilatation Left kidney and ureter: Moderate dilatation of the collecting system which is fairly comparable to th e previous examination with the dilated pelvicalyceal and left ureter down to the ileal conduit. Exop hytic left renal cyst inferolaterally measuring 3 cm. Bladder: Status post cystoprostatectomy. Liver/Biliary: Negative Pancreas: Negative Spleen: Negative Adrenal glands: Negative Kidneys/Retroperitoneum: Negative Pelvic structures: Status post cystoprostatectomy. No evidence of recurrence in the pelvis. No mas s lesion or pathologic lymphadenopathy. Bowel/peritoneum/mesenteries: No acute colonic pathology. The visualized bowel demonstrates no inflam mation or mass lesion. Vessels: Atherosclerotic disease. No aneurysmal change. Musculoskeletal/body wall: Negative Lymph node assessment: The retroperitoneal lymphadenopathy is remains stable likely indicating reacti ve rather than neoplastic lymph nodes. No interval increase in the size of any of the previously seen retroperitoneal lymphadenopathy. The largest lymph node (image 64 series 2) remains identical in siz e at approximately 1.5 x 1.0 cm. Lower chest: Atelectasis/scarring IMPRESSION: 1. Status post cystoprostatectomy with ileal diversion. Symmetric moderate hydronephrosis of both kid neys. Degree of right renal hydronephrosis has increased when compared to the previous CT scan status post removal of the nephroureteral stent. 2. No recurrence in the pelvic surgical bed. 3. Stable appearing retroperitoneal lymphadenopathy. Report Dictated By: Michael Lester MD at 07/18/2017 9:13 PM Report E-Signed By: Michael Lester MD at 07/18/2017 9:28 PM WSN:[id number]
[2017-07-18] MEDS ORDERED: HYDR2TAB74 PO (21:59)
[2017-07-18] MEDS ORDERED: CIPR-214 PO (21:59)
[2017-07-18] MEDS ORDERED: HYDROmorphone 2 MG TAB TH 2 TAB/BOTTLE PO ONE (22:20)
[2017-07-18 22:26] VITALS: BP 151/83
--- NOTE | 2017-07-18 23:56 | Hospitalist Consultation ---
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 He reported that the back pain started yesterday and was 9/10 at it's worst. This afternoon he developed chills. He noted today that when he moved his head fast he became dizzy, but no room spinning or tunnel vision. He felt like his head was in "cotton" later in the day, so was directed to go to the ER by his PCP. He denies nausea or diarrhea. He denies flank pain. The back pain was band like around the low back, but has since resolved. No change in urine volume or clarity. In the ER, he received Dilaudid, Rocephin, Mg IV, Fentanyl and IV fluids. He wants to go home. History Problems: (1) Transitional cell bladder cancer Status: Resolved (2) Hypothyroid Status: Chronic (3) Obesity Status: Chronic (4) Prostate cancer Status: Chronic (5) Hypertension Status: Chronic (6) Depression Status: Chronic (7) Hypercholesterolemia Onset Date: 04/12/2014 Status: Chronic (8) Hypomagnesemia Status: Chronic Home Meds Active Scripts Ciprofloxacin Hcl (CIPROFLOXACIN HCL) 500 Mg Tablet, 500 MG PO Q12H, #14 TAB Prov:KRISTYN HOLLIDAY 07/18/17 Hydromorphone Hcl (DILAUDID) 2 Mg Tablet, 2 MG PO QID, #30 Prov:KRISTYN HOLLIDAY 07/18/17 Benzonatate (BENZONATATE) 200 Mg Capsule, 200 MG PO TID Y for COUGH, #30 CAP Prov:ASIA LOPEZ MD 07/02/17 [Magic Mouthwash] No Conflict Check Magic Mouthwash (1:1:1 viscous lidocaine, maalox, benadryl). Si tspn by mouth every 1-2 hours prn pain, swish and swallow. Dispense 180ml. Prov:RICHI GOLDSMITH LAND [employer]ITLE EXAMINER-BC 06/26/17 Albuterol Sulfate 90 Mcg/Act (PROAIR HFA 90 MCG/ACT) 8.5 Gm Hfa.aer.ad, 2 PUFF IH Q4-6H, #1 INHALER Prov:RICHI GOLDSMITH LAND TITLE EXAMINER-BC 06/26/17 Nystatin 100,000 Unit/Gm Top Powder (NYSTATIN 100,000 UNIT/GM TOP POWDER) 15 Gm Powder, 15 GM TP BID for 10 Days, #1 TUBE 0 Refills Prov:BERTO ZAMUDIO MD 05/22/17 Hydrocortisone 2.5 % 30 GM CREAM (Hydrocortisone 2.5 % 30 GM CREAM) 2.5 % Cream.appl, 1 APPLIC TOP BID for 30 Days, #30 GM 1 Refill Prov:HIMANSHU VELEZ NPC 04/17/17 Alprazolam (XANAX) 0.5 Mg Tablet, 0.5 TAB PO BID Y for ANXIETY, #60 TAB Prov:ASIA LOPEZ MD 04/16/17 Rosuvastatin Calcium (Rosuvastatin Calcium) 20 Mg Tablet, 1 TAB PO DAILY, #90 TAB 3 Refills Prov:ASIA LOPEZ MD 04/03/17 Levothyroxine Sodium (LEVOTHYROXINE SODIUM) 50 Mcg Tablet, 1 TAB PO QAM, #90 TAB 3 Refills Prov:ASIA LOPEZ MD 10/14/16 Metoprolol Succinate (METOPROLOL SUCCINATE) 50 Mg Tab.er.24h, 0.5 TAB PO DAILY, #90 TAB 3 Refills Prov:ASIA LOPEZ MD 09/27/16 Amlodipine Besylate (AMLODIPINE BESYLATE) 10 Mg Tablet, 1 TAB PO QDAY, #90 TAB 3 Refills Prov:ASIA LOPEZ MD 06/03/16 Reported Medications [Vitamin B 12] No Conflict Check 05/09/17 Losartan Potassium (COZAAR) 25 Mg Tablet, 25 MG PO BID 04/03/17 Citalopram Hydrobromide (CITALOPRAM HBR) 20 Mg Tablet, 20 MG PO QDAY, #5 TAB 06/17/16 Allergies: Coded Allergies: No Known Drug Allergies (Unverified , 05/22/17) Patient History: FH: breast cancer MOTHER, , Age:65, Onset:58 FH: lymphoma MOTHER, , Age:65, Onset:58 FH: prostate cancer FATHER, Onset:62 FHx: heart disease FATHER Hx Smoking: No Smoking Status: Never Smoker Exposure to Second Hand Smoke?: No Caffeine Intake: Soda Caffeine/Cups Per Day: 1 Hx Alcohol Use: No Hx Substance Use Disorder: No Social Drug Use: Never Review of Systems All Systems Reviewed/Normal: Yes, Except as Noted Exam Vital Signs Vital Signs Date Time Temp Pulse Resp B/P (MAP) Pulse Ox O2 Delivery O2 Flow Rate FiO2 07/18/17 22:26 85 16 151/83 (105) 92 Room Air 07/18/17 18:45 99.1 General Appearance: Alert, Awake, No Acute Distress Neuro: No Gross deficits Eyes: PERRLA ENT: Moist Mucous Membranes Cardiovascular: Regular Rate and Rhythm Respiratory: Clear to Auscultation GI: Abd Soft and Non-Tender : No CVA Tenderness (Scars from nephrostomy tubes are well healed and without erythema or pain) Musculoskeletal: Other (No pain with palpation of the low paraspinous muscles or the spinous processes in the lumbar region) Extremities: No Edema Integumentary: No Jaundice, No Cyanosis Medical Decision Making Data Points Result Diagram: 07/18/17192507/18/171925 Item Value Date Time Platelet Count 139 K/uL L 05/26/17 0950 Platelet Count 111 K/uL L 07/18/171925 Hemoglobin 12.3 g/dL L 05/26/17 0950 Hemoglobin 12.6 g/dL L 07/18/171925 White Blood Count 5.4 k/uL 05/26/17 0950 White Blood Count 6.7 k/uL 07/18/171925 Neutrophils (%) (Auto) 76.6 % H 07/18/171925 Neutrophils (%) (Auto) 70.0 % 05/26/17 0950 Creatinine 2.80 mg/dl H 07/18/171925 Creatinine 2.40 mg/dl H 05/26/17 0950 Blood Urea Nitrogen 28 mg/dl H 05/26/17 0950 Blood Urea Nitrogen 32 mg/dl H 07/18/171925 Lactate 1.2 mmol/L 07/18/171925 Magnesium Level 1.3 mg/dl L 07/18/171925 Total Bilirubin 0.6 mg/dl 07/18/171925 Aspartate Amino Transf (AST/SGOT) 24 U/L 07/18/171925 Alanine Aminotransferase (ALT/SGPT) 35 U/L 07/18/171925 Alkaline Phosphatase 123 U/L 07/18/171925 Amylase Level 47 U/L 07/18/171925 Lipase 126 U/L 07/18/171925 Urine Leukocyte Esterase Moderate H 07/18/171843 Urine RBC 1 /HPF 07/18/171843 Urine WBC 32 /HPF 07/18/171843 Urine Squamous Epithelial Cells Few /LPF 07/18/171843 Urine Bacteria Moderate /HPF H 07/18/171843 Urine Blood Small 07/18/171843 EKG / Imaging Imaging Abd/Pelvis CT - 1. Status post cystoprostatectomy with ileal diversion. Symmetric moderate hydronephrosis of both kidneys. Degree of right renal hydronephrosis has increased when compared to the previous CT scan status post removal of the nephroureteral stent. 2. No recurrence in the pelvic surgical bed. 3. Stable appearing retroperitoneal lymphadenopathy. CXR - 1. Stable linear scarring with nodular component in the right upper lobe. 2. Clear left lung. 3. No evidence of acute airspace opacity or pneumonia. Assessment and Plan Problems: (1) Urinary tract infection Status: Acute Assessment & Plan: He presented with chills, low back pain, and slowed thinking. He has some pyuria that is complicated by an ileal conduit. His previous urine culture from May appeared to be contaminant vs colonization. He is not toxic appearing, has a normal WBC, and is afebrile. CT did show some worsening of the hydronephrosis compared to previous when he had nephrostomy tubes. I agree that he can go home with Ciprofloxacin. Urine cultures are pending. He has been instructed to return to the ER for change in urine clarity, fever, confusion, or worsening back pain. (2) CKD (chronic kidney disease) stage 4, GFR 15-29 ml/min Status: Chronic Assessment & Plan: His creatinine is a bit worse from baseline. He has received IVF and is to get a repeat BMP in a few days. (3) Hypomagnesemia Status: Chronic Assessment & Plan: This has been a chronic issue for him. He received IV replacement in the ER. Repeat in a few days. Copies to: ASIA LOPEZ MD; MARIA EUGENIA GANNON MD; KRISTYN HOLLIDAY Venous Thromboembolism Antithrombotics Is Pt On Any Antithrombotics?: No Exam Sepsis Risk: No Definite Risk DARA KATE MD Jul 18, 2017 23:56
[2017-07-22] MEDS ORDERED: CITA-157 PO (15:18)
== END 2017-07-18 22:36 | disposition home or self-care (01) ==
LOC: ER 18:44
DX: N30.00 Acute cystitis without hematuria (principal); I12.9 Hypertensive chronic kidney disease with stage 1 through stage 4 chronic kidney disease, or unspecified chronic kidney disease; N18.4 Chronic kidney disease, stage 4 (severe); E83.42 Hypomagnesemia
CPT/HCPCS: 36415; 71045; 74176; 81001; 82150; 83605; 83690; 83735; 85025; 87040; 93005; 96361; 96365; 96366; 96375; 99284; A9270; J0696; J3010; J3475; J7030; 82040; 82247; 82310; 82374; 82435; 82565; 82947; 84075; 84132; 84155; 84295; 84450; 84460; 84520

== ENCOUNTER 2017-07-23 15:24 | Inpatient (IN) | payer OTHER, MEDICARE ==
[~2017-07-23] VITALS: Ht 177.8 cm; Wt 109.3 kg
--- NOTE | 2017-07-23 15:40 | ER Report ---
History and Physical Time Seen By MD: 15:40 Hx. of Stated Complaint: pt was seen friday in ER and dx with a uti. Today pain is worse, states Dr Styles saw him in clinic and sent him here as his uti is worse. HPI/ROS CHIEF COMPLAINT: Referred to ER by primary care provider HISTORY OF PRESENT ILLNESS: 66-year-old male patient presents to emergency room with complaint of being referred to to the emergency room by his primary care provider. Patient states that he was seen in the emergency room on Friday, he has not felt well since then. He states he was told it a urinary tract infection started on Cipro. At that time he was having back pain. He states the back pain since resolved. States he is having some abdominal pain which made him go see his primary care provider. While he was there she did check his labs and felt that he needed to come into the emergency room and be evaluated further as he did have a low CO2. She feels like his urinary tract infections getting worse. Patient denies any fevers, chills, nausea, vomiting or diarrhea. He has been taking his medication as prescribed. Patient has been taking Dilaudid as needed for pain. REVIEW OF SYSTEMS: Respiratory: No cough, no dyspnea. Cardiovascular: No chest pain, no palpitations. Gastrointestinal: No vomiting, no abdominal pain. Musculoskeletal: No back pain. Allergies: Coded Allergies: No Known Drug Allergies (Unverified , 07/23/17) Home Meds Active Scripts Citalopram Hydrobromide (CELEXA) 40 Mg Tablet, 40 MG PO QDAY, #90 TAB 1 Refill Prov:ASIA STYLES MD 07/22/17 Ciprofloxacin Hcl (CIPROFLOXACIN HCL) 500 Mg Tablet, 500 MG PO Q12H, #14 TAB Prov:YOSELYN HERRING APRN-C 07/18/17 Hydromorphone Hcl (DILAUDID) 2 Mg Tablet, 2 MG PO QID, #30 Prov:YOSELYN HERRING APRN-C 07/18/17 Albuterol Sulfate 90 Mcg/Act (PROAIR HFA 90 MCG/ACT) 8.5 Gm Hfa.aer.ad, 2 PUFF IH Q4-6H, #1 INHALER Prov:RICHI GOLDSMITH MEDICAL INSURANCE VERIFIER-BC 06/26/17 Nystatin 100,000 Unit/Gm Top Powder (NYSTATIN 100,000 UNIT/GM TOP POWDER) 15 Gm Powder, 15 GM TP BID for 10 Days, #1 TUBE 0 Refills Prov:BERTO ZAMUDIO MD 05/22/17 Alprazolam (XANAX) 0.5 Mg Tablet, 0.5 TAB PO BID Y for ANXIETY, #60 TAB Prov:ASIA STYLES MD 04/16/17 Rosuvastatin Calcium (Rosuvastatin Calcium) 20 Mg Tablet, 1 TAB PO DAILY, #90 TAB 3 Refills Prov:ASIA STYLES MD 04/03/17 Levothyroxine Sodium (LEVOTHYROXINE SODIUM) 50 Mcg Tablet, 1 TAB PO QAM, #90 TAB 3 Refills Prov:ASIA STYLES MD 10/14/16 Metoprolol Succinate (METOPROLOL SUCCINATE) 50 Mg Tab.er.24h, 0.5 TAB PO DAILY, #90 TAB 3 Refills Prov:ASIA STYLES MD 09/27/16 Amlodipine Besylate (AMLODIPINE BESYLATE) 10 Mg Tablet, 1 TAB PO QDAY, #90 TAB 3 Refills Prov:ASIA STYLES MD 06/03/16 Reported Medications [Vitamin B 12] No Conflict Check 05/09/17 Losartan Potassium (COZAAR) 25 Mg Tablet, 25 MG PO BID 04/03/17 Discontinued Reported Medications Citalopram Hydrobromide (CITALOPRAM HBR) 20 Mg Tablet, 20 MG PO QDAY, #5 TAB 06/17/16 Discontinued Scripts Benzonatate (BENZONATATE) 200 Mg Capsule, 200 MG PO TID Y for COUGH, #30 CAP Prov:ASIA STYLES MD 07/02/17 [Magic Mouthwash] No Conflict Check Magic Mouthwash (1:1:1 viscous lidocaine, maalox, benadryl). Si tspn by mouth every 1-2 hours prn pain, swish and swallow. Dispense 180ml. Prov:RICHI GOLDSMITH MEDICAL INSURANCE VERIFIER-BC 06/26/17 Hydrocortisone 2.5 % 30 GM CREAM (Hydrocortisone 2.5 % 30 GM CREAM) 2.5 % Cream.appl, 1 APPLIC TOP BID for 30 Days, #30 GM 1 Refill Prov:HIMANSHU VELEZ NPC 04/17/17 Past Medical/Surgical History Patient has past medical history of hypertension, hyperlipidemia, sarcoidosis, asthma, reflux, BPH, bladder cancer, anxiety, prostate cancer. Patient has surgical history of hernia repair, cholecystectomy, cystoscopy, prostate biopsy, ileostomy placement, prostatectomy, dental surgery, tonsillectomy. Patient has a family medical history of CAD, diabetes, cancer. Reviewed Nurses Notes: Yes Hx Smoking: No Smoking Status: Never Smoker Exposure to Second Hand Smoke?: No Hx Substance Use Disorder: No Hx Alcohol Use: No Constitutional Vital Sign - Last 24 Hours 07/23/17 07/23/17 07/23/17 07/23/17 15:29 15:31 15:54 16:24 Temp 98.5 Pulse 73 64 61 Resp 20 B/P (MAP) 167/82 167/82 (110) Pulse Ox 95 95 94 O2 Delivery Room Air 07/23/17 07/23/17 07/23/17 07/23/17 16:54 16:56 17:01 17:16 Pulse 61 63 62 B/P (MAP) 153/74 (100) Pulse Ox 93 95 94 07/23/17 07/23/17 07/23/17 07/23/17 17:30 17:31 17:46 18:00 Pulse 66 61 B/P (MAP) 154/80 (104) 157/85 (109) Pulse Ox 94 94 07/23/17 07/23/17 07/23/17 07/23/17 18:01 18:16 18:30 18:31 Pulse 61 68 66 B/P (MAP) ???/??? (8939) Pulse Ox 96 94 95 07/23/17 07/23/17 07/23/17 07/23/17 18:46 18:51 19:00 19:06 Pulse 62 62 64 B/P (MAP) ???/??? (1665) Pulse Ox 92 94 94 07/23/17 07/23/17 07/23/17 07/23/17 19:21 19:30 19:36 19:48 Pulse 61 73 B/P (MAP) ???/??? (1665) 159/84 (109) Pulse Ox 94 94 07/23/17 07/23/17 07/23/17 07/23/17 19:51 20:06 20:13 20:21 Temp 99.5 Pulse 68 ??? 72 Pulse Ox 94 94 95 07/23/17 20:36 Pulse ??? Intake and Output 07/23/17 07/23/17 07/24/17 15:00 23:00 07:00 Intake Total 1100 ml Balance 1100 ml Physical Exam General Appearance: The patient is alert, has no immediate need for airway protection and no current signs of toxicity. ENT: Tympanic membranes are pearly-hernandez, auditory canals are patent, mucous membranes are moist. Respiratory: Chest is non tender, lungs are clear to auscultation. Cardiac: regular rate and rhythm Gastrointestinal: Abdomen is soft and non tender, no masses, bowel sounds normal. Musculoskeletal: Neck: Neck is supple and non tender. Extremities have full range of motion and are non tender. Skin: No rashes or lesions. DIFFERENTIAL DIAGNOSIS: After history and physical exam differential diagnosis was considered for metabolic acidosis, urinary tract infection, sepsis. Medical Decision Making Data Points Laboratory Hematology Test 07/23/17 14:15 07/23/17 16:35 07/23/17 19:25 Magnesium Level 1.4 mg/dl (1.7-2.2) Acetone, Qualitative Negative Lactate 1.0 mmol/L (0.7-2.1) Blood Gas Puncture Site Right radial Blood Gas Patient Temperature 98.5 DEGREES Arterial Blood pH 7.33 (7.35-7.45) Arterial Blood Partial Pressure CO2 26 mmHg (32-37) Arterial Blood Partial Pressure O2 61 mmHg (60-80) Arterial Blood HCO3 14 mmol/L (20-26) Arterial Blood Oxygen Saturation 90 % (92-100) Arterial Blood Base Excess -12.0 mmol/L Jorje Test Acceptable Oxygen Liters/Minute Room air Chemistry Test 07/23/17 14:15 07/23/17 16:35 07/23/17 19:25 Magnesium Level 1.4 mg/dl (1.7-2.2) Acetone, Qualitative Negative Lactate 1.0 mmol/L (0.7-2.1) Blood Gas Puncture Site Right radial Blood Gas Patient Temperature 98.5 DEGREES Arterial Blood pH 7.33 (7.35-7.45) Arterial Blood Partial Pressure CO2 26 mmHg (32-37) Arterial Blood Partial Pressure O2 61 mmHg (60-80) Arterial Blood HCO3 14 mmol/L (20-26) Arterial Blood Oxygen Saturation 90 % (92-100) Arterial Blood Base Excess -12.0 mmol/L Jorje Test Acceptable Oxygen Liters/Minute Room air Toxicology Test 07/23/17 14:15 Acetone, Qualitative Negative EKG/Imaging Imaging EXAMINATION: CT abdomen and pelvis without IV contrast HISTORY: Worsening renal function. History of hydronephrosis. TECHNIQUE: Axial CT images of the abdomen and pelvis were obtained without IV contrast, with coronal and sagittal 2D reconstructed images. One of the following dose optimization techniques was utilized in the performance of this exam: Automated exposure control; adjustment of the mA and/ or kV according to the patient's size; or use of an iterative reconstruction technique. Specific details can be referenced in the facility's radiology CT exam operational policy. COMPARISON: 07/18/2017. FINDINGS: Evaluation of the solid and viscus parenchymal organs is limited without the benefit of IV contrast. Kidney/ureters/bladder: Stable surgical changes of a cystoprostatectomy with a right lower quadrant ileal conduit urinary diversion. There is persistent severe hydronephrosis of both kidneys, similar to the prior exam. Both ureters are dilated to the level of the ileal conduit. No urinary calculi. The ileal conduit is only minimally distended with fluid. Perinephric stranding surrounds both kidneys. Stable 3 cm exophytic cyst arising from the lower pole of the left kidney. Liver: Negative. Gallbladder and bile ducts: Cholecystectomy. No bile duct dilatation. Spleen: Negative. Pancreas: Negative. Adrenal glands: Negative. Bowel and peritoneum: The small bowel and colon are normal in caliber. No bowel obstruction. No free fluid or free intraperitoneal air. Lymph node assessment: Stable mildly enlarged retroperitoneal lymph nodes. Largest discrete lymph nodes measure 1.0 cm along the right retroperitoneum and 1.2 cm along the left para-aortic level. Vessels: Mild vascular calcifications. Normal caliber abdominal aorta. Musculoskeletal: No acute osseous findings. Body wall: Unremarkable CT appearance of the right lower quadrant ostomy. Lung bases: Negative. IMPRESSION: 1. Surgical changes of a cystoprostatectomy with a right lower quadrant ileal conduit urinary diversion. 2. Severe hydronephrosis of both kidneys, unchanged from the prior exam, with dilatation of both ureters to the level of the ileal conduit. 3. No other new intra-abdominal findings by noncontrast CT imaging. Report Dictated By: Sloan Estes MD at 07/23/2017 8:32 PM Report E-Signed By: Sloan Estes MD at 07/23/2017 8:39 PM ED Course/Re-evaluation ED Course Patient was medicated examined, history and physical were obtained. Differential diagnoses were considered. On examination patient has some abdominal pain, otherwise heart is regular. Patient had a CBC, CMP and urinalysis done with his primary care provider so that was not repeated. An ABG , magnesium and lactate were done. ABG showed a slightly acidotic pH of 7.31, magnesium was low at 1.4 and lactate was one. Patient had a bicarbonate of 13. Patient was hydrated aggressively with 1 L of normal saline, received a dose of Rocephin for urinary tract infection, and 1 g of magnesium. A second liter of normal saline was started. A repeat ABG was done which showed improvement to pH of 7.33 with a bicarbonate of 14. At that time I discussed the case with Dr. Flanagan, hospitalist, who requested that a CT of the abdomen and pelvis be done as patient had hydronephrosis 5 days ago. That was repeated which showed severe hydronephrosis with no change compared with previous exam. I discussed the case with Dr. Flanagan who came down and evaluated the patient. He did speak with the patient's urologist, who recommended admitting the patient here, hydrating and if there's no improvement even transferring down to [place]. We discussed that with the patient who verbalized understanding and agreement with plan. Patient will be admitted to the hospital here with diagnosis of hydronephrosis and decreased renal function. Decision to Disposition Date: Jul 23, 2017 Decision to Disposition Time: 21:34 Depart Departure Latest Vital Signs Vital Signs Date Time Temp Pulse Resp B/P (MAP) Pulse Ox O2 Delivery O2 Flow Rate FiO2 07/23/17 20:36 ??? 07/23/17 20:21 95 07/23/17 20:13 99.5 07/23/17 19:48 159/84 (109) 07/23/17 15:29 20 Room Air Core Temperature (Celsius): 37.11 Impression: Primary Impression: Hydronephrosis Additional Impression: Decreased renal function Condition: Condition Unchanged Disposition: Admitted from ER Referrals: ASIA STYLES MD (PCP) Problem Qualifiers Primary Impression: Hydronephrosis Hydronephrosis type: unspecified Qualified Codes: N13.30 - Unspecified hydronephrosis MARLENE ARTEAGA Jul 23, 2017 15:40
[2017-07-23] MEDS ORDERED: NS(*) 0.9% 1000 ML BAG 1,000 ML IV ONE ×2 (16:20→17:50)
[2017-07-23] MEDS ORDERED: cefTRIAXone 1 GM VIAL IVP ONE (17:20)
[2017-07-23] MEDS ORDERED: MAGNESIUM SUL/D5W* 1 GM/100 ML 100 ML IVPB ONE (17:20)
[2017-07-23] MEDS ORDERED: fentaNYL CITR 100 MCG/2 ML AMP IVP ONE (19:55)
--- NOTE | 2017-07-23 20:42 | RADIOLOGY IMAGING REPORT ---
FACILITY: [facility] [place] PATIENT NAME: Christiano Montes : 1950 MR: [id number] V: [id number] EXAM DATE: ORDERING PHYSICIAN: MARLENE ARTEAGA TECHNOLOGIST: Location: [facility] Patient: Christiano Montes : 1950 Visit/Account:[id number] Date of Sevice: 07/23/2017 EXAMINATION: CT abdomen and pelvis without IV contrast HISTORY: Worsening renal function. History of hydronephrosis. TECHNIQUE: Axial CT images of the abdomen and pelvis were obtained without IV contrast, with nation l and sagittal 2D reconstructed images. One of the following dose optimization techniques was utilized in the performance of this exam: Autom ated exposure control; adjustment of the mA and/or kV according to the patient's size; or use of an i terative reconstruction technique. Specific details can be referenced in the facility's radiology C T exam operational policy. COMPARISON: 07/18/2017. FINDINGS: Evaluation of the solid and viscus parenchymal organs is limited without the benefit of IV contrast. Kidney/ureters/bladder: Stable surgical changes of a cystoprostatectomy with a right lower quadrant i valerio conduit urinary diversion. There is persistent severe hydronephrosis of both kidneys, similar to the prior exam. Both ureters ar e dilated to the level of the ileal conduit. No urinary calculi. The ileal conduit is only minimally distended with fluid. Perinephric stranding surrounds both kidneys. Stable 3 cm exophytic cyst arisin g from the lower pole of the left kidney. Liver: Negative. Gallbladder and bile ducts: Cholecystectomy. No bile duct dilatation. Spleen: Negative. Pancreas: Negative. Adrenal glands: Negative. Bowel and peritoneum: The small bowel and colon are normal in caliber. No bowel obstruction. No free fluid or free intraperitoneal air. Lymph node assessment: Stable mildly enlarged retroperitoneal lymph nodes. Largest discrete lymph no susan measure 1.0 cm along the right retroperitoneum and 1.2 cm along the left para-aortic level. Vessels: Mild vascular calcifications. Normal caliber abdominal aorta. Musculoskeletal: No acute osseous findings. Body wall: Unremarkable CT appearance of the right lower quadrant ostomy. Lung bases: Negative. IMPRESSION: 1. Surgical changes of a cystoprostatectomy with a right lower quadrant ileal conduit urinary diversi on. 2. Severe hydronephrosis of both kidneys, unchanged from the prior exam, with dilatation of both uret ers to the level of the ileal conduit. 3. No other new intra-abdominal findings by noncontrast CT imaging. Report Dictated By: Sloan Estes MD at 07/23/2017 8:32 PM Report E-Signed By: Sloan Estes MD at 07/23/2017 8:39 PM [id number]
[2017-07-23] MEDS ORDERED: HYDROmorphone* 1 MG/ML 1 MG/ML ML IVP ONE (21:45)
[2017-07-23 22:20] VITALS: BP 167/83
[2017-07-23] MEDS ORDERED: ALPRAZolam 0.25 MG TAB PO PRN (22:20)
[2017-07-23] MEDS ORDERED: INFLUENZA VIRUS VAC 0.5 ML SYR IM ONLY ONE (22:20)
[2017-07-23] MEDS: CITALOPRAM HYDROBROM 20 MG TAB PO SCH (22:59)
[2017-07-23] MEDS: NS(*) 0.9% 1000 ML BAG 1,000 ML IV PRN (23:00)
[2017-07-23] MEDS: METOPROLOL SUCC XL 50 MG TABCR 50 MG TAB.ER.24H PO SCH (23:02)
[2017-07-23] MEDS ORDERED: HYDROmorphone HCL 2 MG/ML SDV IVP PRN (23:20)
--- NOTE | 2017-07-24 00:08 | History & Physical ---
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 5 days ago, the patient was in the ER for low back pain and chills. He has some pyuria, but wasn't toxic appearing. He wanted to go home and try outpatient therapy with Ciprofloxacin. His urine culture was canceled from that visit (for unclear reasons). He has done fairly well since then. The low back pain resolved, but he still gets mild chills. This morning at 0800, he developed sudden onset of LUQ pain that was 9/10. He ended up lying down for a while and the pain improved to about 5/ 10. He denies n/v/diarrhea. He saw his PCP today, who did blood and urine testing. There were increased wbc in the urine and the patient has worsening renal function with acidosis. In the ER, he received Dilaudid, Fentanyl, IVF of 2 liters, Mg, and Rocephin. History Problems: (1) Transitional cell bladder cancer Status: Resolved (2) Obesity Status: Chronic (3) Hypothyroid Status: Chronic (4) Depression Status: Chronic (5) Hypomagnesemia Status: Chronic (6) Hypertension Status: Chronic (7) CKD (chronic kidney disease) stage 4, GFR 15-29 ml/min Status: Chronic (8) Hydronephrosis Status: Chronic (9) Hypercholesterolemia Onset Date: 04/12/2014 Status: Chronic Home Meds Active Scripts Citalopram Hydrobromide (CELEXA) 40 Mg Tablet, 40 MG PO QDAY, #90 TAB 1 Refill Prov:TENA STYLES MD 07/22/17 Ciprofloxacin Hcl (CIPROFLOXACIN HCL) 500 Mg Tablet, 500 MG PO Q12H, #14 TAB Prov:YOSELYN HERRING 07/18/17 Hydromorphone Hcl (DILAUDID) 2 Mg Tablet, 2 MG PO QID, #30 Prov:YOSELYN HERRING APRN-Reji 07/18/17 Albuterol Sulfate 90 Mcg/Act (PROAIR HFA 90 MCG/ACT) 8.5 Gm Hfa.aer.ad, 2 PUFF IH Q4-6H, #1 INHALER Prov:RICHI GOLDSMITH DAIRY SPECIALIST-BC 06/26/17 Nystatin 100,000 Unit/Gm Top Powder (NYSTATIN 100,000 UNIT/GM TOP POWDER) 15 Gm Powder, 15 GM TP BID for 10 Days, #1 TUBE 0 Refills Prov:BERTO ZAMUDIO MD 05/22/17 Alprazolam (XANAX) 0.5 Mg Tablet, 0.5 TAB PO BID Y for ANXIETY, #60 TAB Prov:TENA STYLES MD 04/16/17 Rosuvastatin Calcium (Rosuvastatin Calcium) 20 Mg Tablet, 1 TAB PO DAILY, #90 TAB 3 Refills Prov:TENA STYLES MD 04/03/17 Levothyroxine Sodium (LEVOTHYROXINE SODIUM) 50 Mcg Tablet, 1 TAB PO QAM, #90 TAB 3 Refills Prov:TENA STYLES MD 10/14/16 Metoprolol Succinate (METOPROLOL SUCCINATE) 50 Mg Tab.er.24h, 0.5 TAB PO DAILY, #90 TAB 3 Refills Prov:TENA STYLES MD 09/27/16 Amlodipine Besylate (AMLODIPINE BESYLATE) 10 Mg Tablet, 1 TAB PO QDAY, #90 TAB 3 Refills Prov:TENA STYLES MD 06/03/16 Reported Medications [Vitamin B 12] No Conflict Check 05/09/17 Losartan Potassium (COZAAR) 25 Mg Tablet, 25 MG PO BID 04/03/17 Discontinued Reported Medications Citalopram Hydrobromide (CITALOPRAM HBR) 20 Mg Tablet, 20 MG PO QDAY, #5 TAB 06/17/16 Discontinued Scripts Benzonatate (BENZONATATE) 200 Mg Capsule, 200 MG PO TID Y for COUGH, #30 CAP Prov:TENA STYLES MD 07/02/17 [Magic Mouthwash] No Conflict Check Magic Mouthwash (1:1:1 viscous lidocaine, maalox, benadryl). Si tspn by mouth every 1-2 hours prn pain, swish and swallow. Dispense 180ml. Prov:RICHI GOLDSMITH DAIRY SPECIALIST-BC 06/26/17 Hydrocortisone 2.5 % 30 GM CREAM (Hydrocortisone 2.5 % 30 GM CREAM) 2.5 % Cream.appl, 1 APPLIC TOP BID for 30 Days, #30 GM 1 Refill Prov:HIMANSHU VELEZ NPC 04/17/17 Allergies: Coded Allergies: No Known Drug Allergies (Unverified , 07/23/17) Patient History: FH: breast cancer MOTHER, , Age:65, Onset:58 FH: lymphoma MOTHER, , Age:65, Onset:58 FH: prostate cancer FATHER, Onset:62 FHx: heart disease FATHER Hx Smoking: No Smoking Status: Never Smoker Exposure to Second Hand Smoke?: No Caffeine Intake: Soda Caffeine/Cups Per Day: 1 Hx Alcohol Use: No Hx Substance Use Disorder: No Social Drug Use: Never Review of Systems All Systems Reviewed/Normal: Yes, Except as Noted Exam Vital Signs Vital Signs Date Time Temp Pulse Resp B/P (MAP) Pulse Ox O2 Delivery O2 Flow Rate FiO2 07/23/17 22:20 98.1 68 16 167/83 (111) 94 Room Air General Appearance: Alert, Awake, No Acute Distress Eyes: PERRLA ENT: Moist Mucous Membranes Cardiovascular: Regular Rate and Rhythm Respiratory: Clear to Auscultation GI: Abd Soft and Non-Tender (Obese. Mild distention.) : No CVA Tenderness Extremities: No Edema Integumentary: No Jaundice, No Cyanosis Medical Decision Making Data Points Item Value Date Time Lactate 1.0 mmol/L 07/23/17 1635 Magnesium Level 1.4 mg/dl L 07/23/17 1415 Magnesium Level 1.3 mg/dl L 07/18/17 192 C-Reactive Protein 3.1 mg/dl H 07/23/17 1415 Creatinine 2.80 mg/dl H 07/18/17 192 Creatinine 2.40 mg/dl H 05/26/17 0950 Creatinine 3.30 mg/dl H 07/23/17 1415 Carbon Dioxide Level 13 mmol/L *L 07/23/17 1415 Arterial Blood pH 7.31 L 07/23/17 1542 Arterial Blood pH 7.33 L 07/23/17 1925 Arterial Blood HCO3 13 mmol/L *L 07/23/17 1542 Arterial Blood HCO3 14 mmol/L *L 07/23/17 1925 Arterial Blood Partial Pressure CO2 26 mmHg L 07/23/17 1542 Arterial Blood Partial Pressure CO2 26 mmHg L 07/23/17 192 Arterial Blood Partial Pressure O2 61 mmHg 07/23/17 1925 Arterial Blood Partial Pressure O2 62 mmHg 07/23/17 1542 Arterial Blood Oxygen Saturation 90 % L 07/23/17 1542 Arterial Blood Oxygen Saturation 90 % L 07/23/17 1925 Neutrophils (%) (Auto) 80.6 % H 07/23/17 1415 White Blood Count 7.4 k/uL 07/23/17 1415 Urine WBC 95 /HPF 07/23/17 1335 Urine WBC 32 /HPF 07/18/17 1844 Urine RBC 1 /HPF 07/18/17 1844 Urine RBC 7 /HPF 07/23/17 1335 Urine Leukocyte Esterase Large H 07/23/17 1335 Urine Bacteria Moderate /HPF H 07/18/17 1844 Urine Bacteria Few /HPF 07/23/17 1335 Urine Yeast (Budding) Few /HPF H 07/23/17 1335 Acetone, Qualitative Negative 07/23/17 1415 Random Glucose 90 mg/dl 07/23/17 1415 EKG / Imaging Imaging Abd/Pelvis CT - 1. Surgical changes of a cystoprostatectomy with a right lower quadrant ileal conduit urinary diversion. 2. Severe hydronephrosis of both kidneys, unchanged from the prior exam, with dilatation of both ureters to the level of the ileal conduit. 3. No other new intra-abdominal findings by noncontrast CT imaging. Assessment and Plan Problems: (1) ARF (acute renal failure) Status: Acute Assessment & Plan: He has worsening creatinine and new metabolic acidosis. He reports staying hydrated. The CT shows bilateral severe hydronephrosis and dilatation of the ureters that is relatively unchanged from 5 days ago, but does show worsening of the hydronephrosis on the right since February when the patient had bilateral percutaneous nephrostomy tubes. I spoke with the Urology group that is following the patient. They agree with hydration and reassessment tomorrow. If the renal function is not improving then, the patient likely needs replacement of the nephrostomy tubes. Will stop Losartan for now. (2) Pyuria Status: Acute Assessment & Plan: He was has been on Ciprofloxacin for about 5 days, but has increased WBC in the urine. The cultures from 5 days ago were canceled. He is afebrile and has a normal WBC. Will stop Ciprofloxacin and follow the cultures. He was given Rocephin in the ER. Also, the UA/UCx from the ER was taken from his Perez bag that is about 4 days old. (3) Hydronephrosis Status: Chronic Assessment & Plan: Secondary to having a ileal conduit. He did have nephrostomy tubes for about 6 months until he could have a surgery to revise the ileal conduit. The nephrostomy tubes were removed in March. See above. (4) Hypomagnesemia Status: Chronic Assessment & Plan: The etiology is unclear. He has received IV replacement in the ER. Will follow. (5) Left sided abdominal pain Status: Chronic Assessment & Plan: He presented with sudden 9/10 LUQ pain. It has improved. He has a benign abdominal exam. Non-contrasted CT without obvious abnormalities except the hydronephrosis and dilated ureter. (6) Hypertension Status: Chronic Assessment & Plan: He is chronically on Amlodipine, Losartan and Metoprolol. Losartan will be held. (7) Depression Status: Chronic Assessment & Plan: Continue chronic citalopram and prn Xanax. (8) Transitional cell bladder cancer *Optional Permanent Comment*: Presented with hematuria. 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 Last Edited By: Tena Styles MD on May 20, 2016 10:14 Status: Resolved Assessment & Plan: He is status post chemotherapy and surgery. (9) CKD (chronic kidney disease) stage 4, GFR 15-29 ml/min Status: Chronic Assessment & Plan: Baseline creatinine is about 2.1 to 2.5. Venous Thromboembolism Antithrombotics Is Pt On Any Antithrombotics?: No Exam Sepsis Risk: No Definite Risk Problem Qualifiers (1) Hydronephrosis: Hydronephrosis type: unspecified Qualified Codes: N13.30 - Unspecified hydronephrosis DARA KATE MD Jul 24, 2017 00:08
[2017-07-24 02:53] VITALS: BP 155/79
[2017-07-24] MEDS: LEVOTHYROXINE SOD 0.05 MG TAB PO SCH (05:32)
[2017-07-24 05:56] LABS: PLATELET COUNT, AUTOMATED 99 K/uL (150-450)
[2017-07-24 07:09] VITALS: BP 150/76
[2017-07-24 07:29] VITALS: Ht 177.8 cm; Wt 109.3 kg
[2017-07-24] MEDS ORDERED: MAGNESIUM SUL* 2 GM/50 ML IVPB 50 ML IVPB ONE (08:20)
[2017-07-24] MEDS: amLODIPine BESYL(*) 5 MG TAB PO SCH (08:22)
[2017-07-24 11:21] VITALS: BP 149/81
[2017-07-24] MEDS: NS(*) 0.9% 1000 ML BAG 1,000 ML IV PRN (13:13)
--- NOTE | 2017-07-24 13:23 | Hospitalist Progress Note ---
Subjective Progress Notes Subjective He reports some improvements. Abdominal pain resolved. No fever. Appetite improved. Physical Exam Vital Signs Date Time Temp Pulse Resp B/P (MAP) Pulse Ox O2 Delivery O2 Flow Rate FiO2 07/24/17 11:21 98.0 63 16 149/81 (103) 92 Room Air Intake and Output 07/25/17 07:00 Intake Total 916 ml Output Total 1125 ml Balance -209 ml Intake Oral 816 ml IV Total 100 ml Output Urine Total 1125 ml # Bowel Movements 1 General Appearance: Alert, Awake Neuro: No Gross deficits Cardiovascular: Regular Rate and Rhythm Respiratory: Clear to Auscultation GI: Other (Soft/urostomy-ileal conduit RLQ) Extremities: Warm, Perfused Psych: Alert & Oriented X3 Result Diagram: 07/24/17 0530 07/24/17 0530 Assessment and Plan Problems: (1) ARF (acute renal failure) Status: Acute Assessment & Plan: He had worsening creatinine and metabolic acidosis. CT shows bilateral severe hydronephrosis and dilatation of the ureters that is relatively unchanged from 5 days ago, but does show some worsening of the hydronephrosis on the right since February when the patient had bilateral percutaneous nephrostomy tubes. Dr. Flanagan spoke with the Urology group that is following the patient. They agree with hydration and following closely. If the renal function does not improve, the patient likely needs replacement of the nephrostomy tubes. We also stopped his usual Losartan for now. His creatinine has improved with IV fluids (3.1 today down from 3.3 at admission yesterday). Will continue with same for now. Watch labs. (2) Pyuria Status: Acute Assessment & Plan: He was on Ciprofloxacin for about 5 days, but also had increased WBC in the urine. The cultures from 5 days ago were canceled. He is now afebrile and has a normal WBC. We stopped Ciprofloxacin. Will follow the current cultures. He was given a dose of Rocephin in the ER. (3) Hydronephrosis Status: Chronic Assessment & Plan: Secondary to having a ileal conduit. He did have nephrostomy tubes for about 6 months until he could have a surgery to revise the ileal conduit. The nephrostomy tubes were removed in March. He will need to follow up with his urologist in the very near future. Will have SW help with arranging an appointment. (4) Hypomagnesemia Status: Chronic Assessment & Plan: The etiology is unclear. He has received IV replacement in the ER. Still low at 1.6 today. Will give an additional 2gm today. Will follow. (5) Left sided abdominal pain Status: Chronic Assessment & Plan: He presented with sudden pain. It has improved/resolved. He has a benign abdominal exam. Non-contrasted CT without obvious abnormalities except the hydronephrosis and dilated ureter. (6) Hypertension Status: Chronic Assessment & Plan: He is chronically on Amlodipine, Losartan and Metoprolol. Losartan will be held. (7) Depression Status: Chronic Assessment & Plan: Continue chronic citalopram and prn Xanax. (8) Transitional cell bladder cancer *Optional Permanent Comment*: Presented with hematuria. 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 Last Edited By: Tena Styles MD on May 20, 2016 10:14 Status: Resolved Assessment & Plan: He is status post chemotherapy and surgery. (9) CKD (chronic kidney disease) stage 4, GFR 15-29 ml/min Status: Chronic Assessment & Plan: Baseline creatinine is about 2.1 to 2.5. Follow labs closely. Exam Sepsis Risk: No Definite Risk Problem Qualifiers (1) Hydronephrosis: Hydronephrosis type: unspecified Qualified Codes: N13.30 - Unspecified hydronephrosis MAKENZIE MALIK MD Jul 24, 2017 13:23
[2017-07-24 14:55] VITALS: BP 151/79
[2017-07-24 18:46] VITALS: BP 150/76
[2017-07-24 19:43] VITALS: BP 144/78
[2017-07-24] MEDS: METOPROLOL SUCC XL 50 MG TABCR 50 MG TAB.ER.24H PO SCH (20:51)
[2017-07-24] MEDS: CITALOPRAM HYDROBROM 20 MG TAB PO SCH (20:51)
[2017-07-25 01:40] VITALS: BP 135/73
[2017-07-25] MEDS: NS(*) 0.9% 1000 ML BAG 1,000 ML IV PRN (01:42)
[2017-07-25] MEDS: LEVOTHYROXINE SOD 0.05 MG TAB PO SCH (06:02)
[2017-07-25 06:06] LABS: PLATELET COUNT, AUTOMATED 104 K/uL (150-450)
[2017-07-25 08:27] VITALS: BP 147/78
[2017-07-25] MEDS: amLODIPine BESYL(*) 5 MG TAB PO SCH (09:11)
--- NOTE | 2017-07-25 10:24 | Hospitalist Depart ---
Discharge Summary Reason for Hosp/Final Diag: (1) ARF (acute renal failure) Status: Acute Hospital Course & Plan: He was found to have an elevation of his creatinine above baseline on outpatient testing. A CT scan did shows bilateral severe hydronephrosis, which was found to be relatively unchanged from a CT that was done 5 days prior, but was noted to be worse on the right since February when he had bilateral percutaneous nephrostomy tubes. Dr. Flanagan did speak with urology, and they recommended IV hydration. His creatinine did improve with IV fluids. He will discharge and follow up with his urologist as scheduled. (2) Pyuria Status: Acute Hospital Course & Plan: He was on Ciprofloxacin for about 5 days prior to admission. This has since been discontinued. A repeat urine culture is only positive for a small colony east. (3) Hydronephrosis Status: Chronic Hospital Course & Plan: Secondary to having a ileal conduit. He did have nephrostomy tubes for about 6 months until he could have a surgery to revise the ileal conduit. The nephrostomy tubes were removed in March. He will need to follow up with his urologist in the very near future. (4) Hypomagnesemia Status: Chronic Hospital Course & Plan: Resolved with supplementation. (5) Left sided abdominal pain Status: Chronic Hospital Course & Plan: He presented with sudden pain. It has improved/ resolved. He has a benign abdominal exam. Non-contrasted CT without obvious abnormalities except the hydronephrosis and dilated ureter. (6) Hypertension Status: Chronic Hospital Course & Plan: He is chronically on Amlodipine, Losartan and Metoprolol. The losartan has been discontinued secondary to hyperkalemia. (7) Depression Status: Chronic Hospital Course & Plan: Continue chronic citalopram and prn Xanax. (8) Transitional cell bladder cancer *Optional Permanent Comment*: Presented with hematuria. 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 Last Edited By: Tena Styles MD on May 20, 2016 10:14 Status: Resolved Hospital Course & Plan: He is status post chemotherapy and surgery. (9) CKD (chronic kidney disease) stage 4, GFR 15-29 ml/min Status: Chronic Hospital Course & Plan: Baseline creatinine is about 2.1 to 2.5. Follow labs closely. Departure Latest Vital Signs Vital Signs 07/25/17 07/25/17 08:27 09:10 Temp 98.3 Pulse 56 Resp 12 B/P (MAP) 147/78 (101) Pulse Ox 91 O2 Delivery Room Air Weight (Pounds): 241 Weight (Ounces): 9.0 Result Diagram: 07/25/1755407/25/17554 Condition: Improved Discharge: Home, Self Care Discharge Instructions Home Meds Active Scripts Citalopram Hydrobromide (CELEXA) 40 Mg Tablet, 40 MG PO QDAY, #90 TAB 1 Refill Prov:TENA STYLES MD 07/22/17 Hydromorphone Hcl (DILAUDID) 2 Mg Tablet, 2 MG PO QID, #30 Prov:YOSELYN HERRING APRN-C 07/18/17 Albuterol Sulfate 90 Mcg/Act (PROAIR HFA 90 MCG/ACT) 8.5 Gm Hfa.aer.ad, 2 PUFF IH Q4-6H, #1 INHALER Prov:RICHI GOLDSMITH DYE RANGE OPERATOR CLOTH-BC 06/26/17 Nystatin 100,000 Unit/Gm Top Powder (NYSTATIN 100,000 UNIT/GM TOP POWDER) 15 Gm Powder, 15 GM TP BID for 10 Days, #1 TUBE 0 Refills Prov:BERTO ZAMUDIO MD 05/22/17 Alprazolam (XANAX) 0.5 Mg Tablet, 0.5 TAB PO BID Y for ANXIETY, #60 TAB Prov:TENA STYLES MD 04/16/17 Levothyroxine Sodium (LEVOTHYROXINE SODIUM) 50 Mcg Tablet, 1 TAB PO QAM, #90 TAB 3 Refills Prov:TENA STYLES MD 10/14/16 Metoprolol Succinate (METOPROLOL SUCCINATE) 50 Mg Tab.er.24h, 0.5 TAB PO DAILY, #90 TAB 3 Refills Prov:TENA STYLES MD 09/27/16 Amlodipine Besylate (AMLODIPINE BESYLATE) 10 Mg Tablet, 1 TAB PO QDAY, #90 TAB 3 Refills Prov:TENA STYLES MD 06/03/16 Discontinued Reported Medications [Vitamin B 12] No Conflict Check 05/09/17 Losartan Potassium (COZAAR) 25 Mg Tablet, 25 MG PO BID 04/03/17 Citalopram Hydrobromide (CITALOPRAM HBR) 20 Mg Tablet, 20 MG PO QDAY, #5 TAB 06/17/16 Discontinued Scripts Ciprofloxacin Hcl (CIPROFLOXACIN HCL) 500 Mg Tablet, 500 MG PO Q12H, #14 TAB Prov:YOSELYN HERRING LAMP ASSEMBLER-C 07/18/17 Rosuvastatin Calcium (Rosuvastatin Calcium) 20 Mg Tablet, 1 TAB PO DAILY, #90 TAB 3 Refills Prov:TENA STYLES MD 04/03/17 Benzonatate (BENZONATATE) 200 Mg Capsule, 200 MG PO TID Y for COUGH, #30 CAP Prov:TENA STYLES MD 07/02/17 [Magic Mouthwash] No Conflict Check Magic Mouthwash (1:1:1 viscous lidocaine, maalox, benadryl). Si tspn by mouth every 1-2 hours prn pain, swish and swallow. Dispense 180ml. Prov:RICHI GOLDSMITH DYE RANGE OPERATOR CLOTH-BC 06/26/17 Hydrocortisone 2.5 % 30 GM CREAM (Hydrocortisone 2.5 % 30 GM CREAM) 2.5 % Cream.appl, 1 APPLIC TOP BID for 30 Days, #30 GM 1 Refill Prov:HIMANSHU VELEZ NPC 04/17/17 Diet: Regular Activity: As Tolerated Venous Thromboembolism Antithrombotics Is Pt On Any Antithrombotics?: No Problem Qualifiers (1) Hydronephrosis: Hydronephrosis type: unspecified Qualified Codes: N13.30 - Unspecified hydronephrosis (2) Hypertension: Hypertension type: essential hypertension Qualified Codes: I10 - Essential ( primary) hypertension VERONICA CRAWFORD DO Jul 25, 2017 10:24
--- NOTE | 2017-07-25 12:09 | Medical Nutrition Therapy ---
Nutrition Anthropometrics Height (Inches): 70.00 Height (Calculated Centimeters: 177.661475 Weight (Pounds): 241 Weight (Calculated Kilograms): 109.571 BMI Calculated: 34.58 Jeff Nutrition Score: Adequate Jeff Nutrition Risk Score: 17 Dietary Referral Nutrition Risk Factors: Nutrition Risk Comment: Physical Findings Physical Appearance: Obese BMI 30-39 Skin Appearance Skin Appearance: Edema Edema Location Modifier: Edema Location: Type of Edema: Degree of Edema: Gastrointestinal Symptoms GI Symtoms: Tube Present: Bowel Sounds: Recent Bowel Pattern: Colostomy Stool Characteristics: Nutrition/Food History Poor Skipped Meals: Yes (typically consumes 1 meal per day) Breakfast: [employer]eves[employer] breakfast sandwich- sausage, egg and biscuit Lunch: Skips- too busy at work to take a lunch break Dinner: Skips- too much effort to prepare a meal Snacks: No snacks. Drinks 2 botlespepsi, 16 oz bottle of milk, 3-4 16oz grape juice Nutritional Diagnosis Nutritional Risk Acuity 1: Acute/ES Renal Nutritional Risk Acuity 4: Good Appetite Past Medical History: bladder ca, prostate ca, HTN, depression, hypothyroid, obesity, CKD stage IV, hypercholesterolemia, hypomagnesemia Nutritional Acuity: 1-High Energy Requirement: 2480 (kg/day (23 kcal/kg)- [facility] RMR 1881 AF 1. IF 1.1) Protein Requirement: 88 (g/day (0.8 g/kg)) Fluid Requirement: 2740 (mL/day (25 mL/kg)) Diet Type: Diet as Tolerated MIKEL/REG Nutrition Intervention: Cont diet as ordered Optional Order Time?: No Nutrition Monitoring & Eval Nutrition Goals: Drink > 2 liters/day Nutrition Follow-Up: Poor Intake RD Patient Assessment Time: [address] Assessment Type: RD Assessment Patient Nutrition Acuity: 1-High Follow Up Date: Jul 27, 2017 Nutritional Comment: 07/24 Pt admitted with acute renal failure. Pt diet as tolerated with no recorded intakes. Pt is not experiencing n/v/d. Pt has very poor PO intake when at home stating that he typically only consumes breakfast. Pt reports drinking 6 16oz bottles per day of sugar sweetened beverages with little to no water. Pt states that he sometimes has difficulty chewing due to having 4 teeth removed including some molars. Pt states that he sometimes has difficulty swallowing "food won't seem to go down so I drink water to help". Pt reports that his physician previously gave him a referral to get a swallow eval but pt has never followed up on getting it done. Pt to benefit from CREMATORY OPERATOR swallow eval during visit. Pt Creat 3.10, BUN 35. Monitor pt renal labs, intake and progress. WILL JEAN BAPTISTE Jul 24, 2017 08:58
== END 2017-07-25 11:35 | disposition home or self-care (01) | DRG 683 ==
LOC: ER 15:33 → MED 21:47
PROVIDERS: ADMIT Internal Medicine; ATTEND Internal Medicine
DX: N17.9 Acute kidney failure, unspecified (principal); B37.49 Other urogenital candidiasis; E87.2 Acidosis; N13.30 Unspecified hydronephrosis; E83.42 Hypomagnesemia; I12.9 Hypertensive chronic kidney disease with stage 1 through stage 4 chronic kidney disease, or unspecified chronic kidney disease; N18.4 Chronic kidney disease, stage 4 (severe); E78.5 Hyperlipidemia, unspecified; D86.9 Sarcoidosis, unspecified; J45.909 Unspecified asthma, uncomplicated; K21.9 Gastro-esophageal reflux disease without esophagitis; N40.0 Benign prostatic hyperplasia without lower urinary tract symptoms; F41.8 Other specified anxiety disorders; E66.9 Obesity, unspecified; Z85.51 Personal history of malignant neoplasm of bladder; Z92.21 Personal history of antineoplastic chemotherapy; Z90.49 Acquired absence of other specified parts of digestive tract; Z93.2 Ileostomy status; Z68.34 Body mass index [BMI] 34.0-34.9, adult; Z90.6 Acquired absence of other parts of urinary tract
CPT/HCPCS: 36415; 36600; 74176; 82009; 82040; 82247; 82310; 82374; 82435; 82565; 82803; 82947; 83605; 83735; 84075; 84132; 84155; 84295; 84450; 84460; 84520; 85025; 87088; 99284; J0696; J1170; J3010; J3475; J7030

== ENCOUNTER → 2017-07-23 | Outpatient (CLI) | payer OTHER ==
[2016-05-11 12:08] VITALS: BMI 34.4
[~2017-07-23] MED LIST changes: +CIPR-214 PO; +CITA-157 PO; +HYDR2TAB74 PO
[2017-07-23 14:34] LABS: PLATELET COUNT, AUTOMATED 138 K/uL (150-450)
== END ==
LOC: LAB 13:52
PROVIDERS: ATTEND Emergency Medicine
DX: N39.0 Urinary tract infection, site not specified (principal)
CPT/HCPCS: 36415; 81001; 82310; 82374; 82435; 82565; 82947; 84132; 84295; 84520; 85025; 86140

== ENCOUNTER → 2017-07-29 | Outpatient (CLI) | payer OTHER ==
[2017-07-24 07:29] VITALS: BMI 34.6
== END ==
LOC: LAB 09:41
PROVIDERS: ATTEND Surgery
DX: L82.1 Other seborrheic keratosis (principal)
CPT/HCPCS: 88305

== ENCOUNTER → 2017-07-31 | Outpatient (CLI) | payer OTHER ==
[2017-07-24 07:29] VITALS: BMI 34.6
[2017-07-31 16:48] LABS: PLATELET COUNT, AUTOMATED 161 K/uL (150-450)
== END ==
LOC: LAB 16:25
PROVIDERS: ATTEND Emergency Medicine
DX: N18.4 Chronic kidney disease, stage 4 (severe) (principal)
CPT/HCPCS: 36415; 82310; 82374; 82435; 82565; 82947; 83540; 83550; 83970; 84132; 84295; 84520; 85025; 86140

== ENCOUNTER → 2017-08-05 | Outpatient (CLI) | payer OTHER ==
[2017-07-24 07:29] VITALS: BMI 34.6
== END ==
LOC: CT 08:51
PROVIDERS: ATTEND Internal Medicine
DX: C67.9 Malignant neoplasm of bladder, unspecified (principal)

== ENCOUNTER 2017-08-06 16:53 | Emergency (ER) | payer OTHER ==
[2017-07-24 07:29] VITALS: Wt 104.3 kg
[2017-08-06] MEDS ORDERED: LOSA50TA72 PO (17:02)
[2017-08-06] MEDS ORDERED: NS(*) 0.9% 1000 ML BAG 1,000 ML IV ONE (17:18)
[2017-08-06 17:36] LABS: PLATELET COUNT, AUTOMATED 126 K/uL (150-450)
--- NOTE | 2017-08-06 18:01 | ER Report ---
History and Physical Time Seen By MD: 17:27 Hx. of Stated Complaint: PATIENT WENT TO SEE HIS RN HOME CARE TODAY AND HAD AN ELEVATED CREATININE. AND IT WAS RECOMMENDED THAT HE COME TO THE ER HPI/ROS CHIEF COMPLAINT: Elevated creatinine HISTORY OF PRESENT ILLNESS: 67-year-old male patient presents to emergency room with complaint of an elevated creatinine. Patient states he went down to see his urologist today. He states that he saw his payroll human resources assistant, had some lab work done. As he was returning back to [place] the assisting called and informed him that his creatinine was 3 and encouraged him to go to the emergency room. Patient states he feels fine at this time. Patient states that his ureter is draining normally. He denies any fevers, chills, nausea, vomiting or diarrhea. Patient has not taken any medication for this. Patient has not had any changes in his medication. Patient was recently admitted to the hospital for pain, since he states that his pain is gone at this time. REVIEW OF SYSTEMS: Respiratory: No cough, no dyspnea. Cardiovascular: No chest pain, no palpitations. Gastrointestinal: No vomiting, no abdominal pain. Musculoskeletal: No back pain. Allergies: Coded Allergies: No Known Drug Allergies (Unverified , 07/23/17) Home Meds Active Scripts Citalopram Hydrobromide (CELEXA) 40 Mg Tablet, 40 MG PO QDAY, #90 TAB 1 Refill Prov:ASIA LOPEZ MD 07/22/17 Albuterol Sulfate 90 Mcg/Act (PROAIR HFA 90 MCG/ACT) 8.5 Gm Hfa.aer.ad, 2 PUFF IH Q4-6H, #1 INHALER Prov:RICHI GOLDSMITH FIRST AID ATTENDANT-BC 06/26/17 Nystatin 100,000 Unit/Gm Top Powder (NYSTATIN 100,000 UNIT/GM TOP POWDER) 15 Gm Powder, 15 GM TP BID for 10 Days, #1 TUBE 0 Refills Prov:BERTO ZAMUDIO MD 05/22/17 Alprazolam (XANAX) 0.5 Mg Tablet, 0.5 TAB PO BID Y for ANXIETY, #60 TAB Prov:ASIA LOPEZ MD 04/16/17 Levothyroxine Sodium (LEVOTHYROXINE SODIUM) 50 Mcg Tablet, 1 TAB PO QAM, #90 TAB 3 Refills Prov:ASIA LOPEZ MD 10/14/16 Metoprolol Succinate (METOPROLOL SUCCINATE) 50 Mg Tab.er.24h, 0.5 TAB PO DAILY, #90 TAB 3 Refills Prov:ASIA LOPEZ MD 09/27/16 Amlodipine Besylate (AMLODIPINE BESYLATE) 10 Mg Tablet, 1 TAB PO QDAY, #90 TAB 3 Refills Prov:ASIA LOPEZ MD 06/03/16 Reported Medications Losartan Potassium (LOSARTAN POTASSIUM) 50 Mg Tablet, 50 MG PO QDAY 08/06/17 Discontinued Scripts Hydromorphone Hcl (DILAUDID) 2 Mg Tablet, 2 MG PO QID, #30 Prov:YOSELYN HERRING 07/18/17 Past Medical/Surgical History Patient has a past medical history of hypertension, hyperlipidemia, sarcoidosis , asthma, reflux, elevated PSA, frequent UTI, hypothyroidism, anxiety, bladder cancer, prostate cancer. Patient has surgical history of tonsillectomy, prostatectomy, dental surgery, ileostomy, cystoscopy, hernia repair, cholecystectomy. Patient has a family medical history of cancer, CAD, diabetes. Reviewed Nurses Notes: Yes Hx Smoking: No Smoking Status: Never Smoker Exposure to Second Hand Smoke?: No Hx Substance Use Disorder: No Hx Alcohol Use: No Constitutional Vital Sign - Last 24 Hours 08/06/17 08/06/17 08/06/17 08/06/17 16:57 16:57 17:00 17:23 Temp 98.6 Pulse 75 59 Resp 20 B/P (MAP) 188/94 (125) 188/94 180/89 (119) Pulse Ox 92 94 O2 Delivery Room Air 08/06/17 08/06/17 08/06/17 08/06/17 17:37 17:53 18:00 18:23 Pulse 52 56 B/P (MAP) 161/87 (111) 157/90 (112) Pulse Ox 92 93 08/06/17 18:30 B/P (MAP) 164/88 (113) Intake and Output 08/06/17 08/06/17 08/07/17 15:00 23:00 07:00 Intake Total 1000 ml Balance 1000 ml Physical Exam General Appearance: The patient is alert, has no immediate need for airway protection and no current signs of toxicity. Respiratory: Chest is non tender, lungs are clear to auscultation. Cardiac: regular rate and rhythm Gastrointestinal: Abdomen is soft and non tender, no masses, bowel sounds normal. Musculoskeletal: Neck: Neck is supple and non tender. Extremities have full range of motion and are non tender. Skin: No rashes or lesions. DIFFERENTIAL DIAGNOSIS: After history and physical exam differential diagnosis was considered for chronic kidney disease, dehydration. Medical Decision Making Data Points Result Diagram: 08/06/17 1729 08/06/17 1729 Laboratory Hematology Test 08/06/17 17:29 08/06/17 17:30 Red Blood Count 3.84 M/uL (4.00-5.60) Mean Corpuscular Volume 82.1 fL (80.0-96.0) Mean Corpuscular Hemoglobin 29.2 pg (26.0-33.0) Mean Corpuscular Hemoglobin Concent 35.6 g/dL (32.0-36.0) Red Cell Distribution Width 13.6 % (11.5-14.5) Mean Platelet Volume 6.7 fL (7.2-11.1) Neutrophils (%) (Auto) 73.9 % (39.4-72.5) Lymphocytes (%) (Auto) 16.0 % (17.6-49.6) Monocytes (%) (Auto) 6.2 % (4.1-12.4) Eosinophils (%) (Auto) 3.3 % (0.4-6.7) Basophils (%) (Auto) 0.6 % (0.3-1.4) Nucleated RBC Relative Count (auto) 0.0 /100WBC Neutrophils # (Auto) 4.5 K/uL (2.0-7.4) Lymphocytes # (Auto) 1.0 K/uL (1.3-3.6) Monocytes # (Auto) 0.4 K/uL (0.3-1.0) Eosinophils # (Auto) 0.2 K/uL (0.0-0.5) Basophils # (Auto) 0.0 K/uL (0.0-0.1) Nucleated RBC Absolute Count (auto) 0.00 K/uL Sodium Level 139 mmol/L (137-145) Potassium Level 4.1 mmol/L (3.5-5.0) Chloride Level 108 mmol/L (98-107) Carbon Dioxide Level 15 mmol/L (22-30) Blood Urea Nitrogen 37 mg/dl (9-21) Creatinine 3.10 mg/dl (0.66-1.25) Glomerular Filtration Rate Calc 20.2 Random Glucose 156 mg/dl (75-110) Calcium Level 9.4 mg/dl (8.4-10.2) Total Bilirubin 0.5 mg/dl (0.2-1.3) Aspartate Amino Transf (AST/SGOT) 16 U/L (0-35) Alanine Aminotransferase (ALT/SGPT) 21 U/L (0-56) Alkaline Phosphatase 112 U/L (0-126) Total Protein 7.0 gm/dl (6.3-8.2) Albumin 4.0 g/dl (3.5-5.0) Urine Color Yellow Urine Clarity Cloudy Urine pH 7.0 pH (4.8-9.5) Urine Specific [place] 1.008 Urine Protein Negative mg/dL (NEGATIVE) Urine Glucose (UA) Negative mg/dL (NEGATIVE) Urine Ketones Negative mg/dL (NEGATIVE) Urine Blood Large (NEGATIVE) Urine Nitrite Positive (NEGATIVE) Urine Bilirubin Negative (NEGATIVE) Urine Urobilinogen Negative mg/dL (0.2-1.9) Urine Leukocyte Esterase Large (NEGATIVE) Urine RBC 26 /HPF (0-2/HPF) Urine WBC 129 /HPF (0-5/HPF) Urine Squamous Epithelial Cells Many /LPF (</=FEW) Urine Bacteria Few /HPF (NONE-FEW) Urine Mucus None /HPF (NONE-FEW) Urine Yeast Few /HPF (NONE) Urine Yeast (Budding) Few /HPF Chemistry Test 08/06/17 17:29 08/06/17 17:30 White Blood Count 6.1 k/uL (4.5-11.0) Red Blood Count 3.84 M/uL (4.00-5.60) Hemoglobin 11.2 g/dL (14.0-18.0) Hematocrit 31.5 % (42.0-52.0) Mean Corpuscular Volume 82.1 fL (80.0-96.0) Mean Corpuscular Hemoglobin 29.2 pg (26.0-33.0) Mean Corpuscular Hemoglobin Concent 35.6 g/dL (32.0-36.0) Red Cell Distribution Width 13.6 % (11.5-14.5) Platelet Count 126 K/uL (150-450) Mean Platelet Volume 6.7 fL (7.2-11.1) Neutrophils (%) (Auto) 73.9 % (39.4-72.5) Lymphocytes (%) (Auto) 16.0 % (17.6-49.6) Monocytes (%) (Auto) 6.2 % (4.1-12.4) Eosinophils (%) (Auto) 3.3 % (0.4-6.7) Basophils (%) (Auto) 0.6 % (0.3-1.4) Nucleated RBC Relative Count (auto) 0.0 /100WBC Neutrophils # (Auto) 4.5 K/uL (2.0-7.4) Lymphocytes # (Auto) 1.0 K/uL (1.3-3.6) Monocytes # (Auto) 0.4 K/uL (0.3-1.0) Eosinophils # (Auto) 0.2 K/uL (0.0-0.5) Basophils # (Auto) 0.0 K/uL (0.0-0.1) Nucleated RBC Absolute Count (auto) 0.00 K/uL Glomerular Filtration Rate Calc 20.2 Calcium Level 9.4 mg/dl (8.4-10.2) Total Bilirubin 0.5 mg/dl (0.2-1.3) Aspartate Amino Transf (AST/SGOT) 16 U/L (0-35) Alanine Aminotransferase (ALT/SGPT) 21 U/L (0-56) Alkaline Phosphatase 112 U/L (0-126) Total Protein 7.0 gm/dl (6.3-8.2) Albumin 4.0 g/dl (3.5-5.0) Urine Color Yellow Urine Clarity Cloudy Urine pH 7.0 pH (4.8-9.5) Urine Specific [place] 1.008 Urine Protein Negative mg/dL (NEGATIVE) Urine Glucose (UA) Negative mg/dL (NEGATIVE) Urine Ketones Negative mg/dL (NEGATIVE) Urine Blood Large (NEGATIVE) Urine Nitrite Positive (NEGATIVE) Urine Bilirubin Negative (NEGATIVE) Urine Urobilinogen Negative mg/dL (0.2-1.9) Urine Leukocyte Esterase Large (NEGATIVE) Urine RBC 26 /HPF (0-2/HPF) Urine WBC 129 /HPF (0-5/HPF) Urine Squamous Epithelial Cells Many /LPF (</=FEW) Urine Bacteria Few /HPF (NONE-FEW) Urine Mucus None /HPF (NONE-FEW) Urine Yeast Few /HPF (NONE) Urine Yeast (Budding) Few /HPF Urinalysis Test 08/06/17 17:30 Urine Color Yellow Urine Clarity Cloudy Urine pH 7.0 pH (4.8-9.5) Urine Specific [place] 1.008 Urine Protein Negative mg/dL (NEGATIVE) Urine Glucose (UA) Negative mg/dL (NEGATIVE) Urine Ketones Negative mg/dL (NEGATIVE) Urine Blood Large (NEGATIVE) Urine Nitrite Positive (NEGATIVE) Urine Bilirubin Negative (NEGATIVE) Urine Urobilinogen Negative mg/dL (0.2-1.9) Urine Leukocyte Esterase Large (NEGATIVE) Urine RBC 26 /HPF (0-2/HPF) Urine WBC 129 /HPF (0-5/HPF) Urine Squamous Epithelial Cells Many /LPF (</=FEW) Urine Bacteria Few /HPF (NONE-FEW) Urine Mucus None /HPF (NONE-FEW) Urine Yeast Few /HPF (NONE) Urine Yeast (Budding) Few /HPF ED Course/Re-evaluation ED Course Patient was admitted and examined, history and physical were obtained. Differential diagnoses were considered. On examination lungs are clear, heart is regular, abdomen soft nontender. A IV was started, CBC, CMP, urinalysis were obtained. Patient did have positive nitrites as well as leukocyte esterase and urine, I believe this is normal colonization secondary to his nephrostomy. CBC was unremarkable, CMP showed a creatinine of 3.1. I did review his previous records, he has been running right around 3.1-3.3 for the last couple of weeks. I discussed with patient that I believe that the payroll human resources assistant that he did seem did not review his previous records and was unaware of where he normally sits, with creatinine of 2.9-3.3. Patient states he is feeling well at this time. We will go ahead and discharge him home. Patient did receive a liter of normal saline. Patient verbalized understanding and agreement plan. Decision to Disposition Date: August 06, 2017 Decision to Disposition Time: 18:00 Depart Departure Latest Vital Signs Vital Signs Date Time Temp Pulse Resp B/P (MAP) Pulse Ox O2 Delivery O2 Flow Rate FiO2 08/06/17 18:30 164/88 (113) 08/06/17 18:23 56 93 08/06/17 16:57 98.6 20 Room Air Core Temperature (Celsius): 37.11 Impression: Primary Impression: CKD (chronic kidney disease) stage 4, GFR 15-29 ml/min Condition: Condition Unchanged Disposition: HOME OR SELF-CARE Referrals: ASIA LOPEZ MD (PCP) Patient Instructions: Chronic Kidney Disease (ED) Additional Instructions: Increase fluid intake. Get plenty of rest. Limit activity by pain. Follow up with your Textile Examiner as previously directed. Continue with current medications. Return to the ER if condition worsens. Follow up with your primary care provider in the next week. MARLENE ARTEAGA August 06, 2017 18:01
[2017-08-06 18:30] VITALS: BP 164/88
[2017-08-07] MEDS ORDERED: ALPR-429 PO (11:57)
== END 2017-08-06 18:36 | disposition home or self-care (01) ==
LOC: ER 17:17
DX: I12.9 Hypertensive chronic kidney disease with stage 1 through stage 4 chronic kidney disease, or unspecified chronic kidney disease (principal); N18.4 Chronic kidney disease, stage 4 (severe); Z85.51 Personal history of malignant neoplasm of bladder; Z87.440 Personal history of urinary (tract) infections; Z85.46 Personal history of malignant neoplasm of prostate
CPT/HCPCS: 81001; 85025; 87088; 96360; 99284; J7030; 82040; 82247; 82310; 82374; 82435; 82565; 82947; 84075; 84132; 84155; 84295; 84450; 84460; 84520

== ENCOUNTER 2017-08-10 11:35 | Emergency (ER) | payer OTHER ==
[2017-07-24 07:29] VITALS: Wt 106.6 kg
[~2017-08-10 11:35] MED LIST changes: +CITA-139 PO; -CITA-145 PO
--- NOTE | 2017-08-10 12:01 | ER Report ---
History and Physical Time Seen By MD: 12:01 Hx. of Stated Complaint: Pt noticed blood in urostomy bag when he awoke this morning. Pt report right lower back pain. No fevers. HPI/ROS CHIEF COMPLAINT: Hematuria HISTORY OF PRESENT ILLNESS: 67-year-old male patient presents to emergency room with complaint of hematuria. Patient states that he woke up this morning and noted that he had significant amounts of blood in his urine. He states the blood was very red in fact. Patient states that he did note after that they had some low back pain. Patient states that he is unsure if that was more psychosomatic as opposed to actually how he is feeling. He states he is not having any pain at this time. Patient denies any fevers or chills. Patient was seen on Friday this past week, had a urine culture done which came back positive for 2 different bacteria. Patient states that he's not had any antibiotics. He denies any nausea, vomiting or diarrhea. Patient also states he' s not had any fevers. REVIEW OF SYSTEMS: Respiratory: No cough, no dyspnea. Cardiovascular: No chest pain, no palpitations. Gastrointestinal: No vomiting, no abdominal pain. Musculoskeletal: No back pain. Allergies: Coded Allergies: No Known Drug Allergies (Unverified , 07/23/17) Home Meds Active Scripts Alprazolam (XANAX) 0.5 Mg Tablet, 0.5 TAB PO BID Y for ANXIETY, #60 TAB Prov:ASIA LOPEZ MD 08/07/17 Citalopram Hydrobromide (CELEXA) 40 Mg Tablet, 40 MG PO QDAY, #90 TAB 1 Refill Prov:ASIA LOPEZ MD 07/22/17 Albuterol Sulfate 90 Mcg/Act (PROAIR HFA 90 MCG/ACT) 8.5 Gm Hfa.aer.ad, 2 PUFF IH Q4-6H, #1 INHALER Prov:RICHI GOLDSMITH BRIDGE CLUB MANAGER-BC 06/26/17 Nystatin 100,000 Unit/Gm Top Powder (NYSTATIN 100,000 UNIT/GM TOP POWDER) 15 Gm Powder, 15 GM TP BID for 10 Days, #1 TUBE 0 Refills Prov:BERTO ZAMUDIO MD 05/22/17 Levothyroxine Sodium (LEVOTHYROXINE SODIUM) 50 Mcg Tablet, 1 TAB PO QAM, #90 TAB 3 Refills Prov:ASIA LOPEZ MD 10/14/16 Metoprolol Succinate (METOPROLOL SUCCINATE) 50 Mg Tab.er.24h, 0.5 TAB PO DAILY, #90 TAB 3 Refills Prov:ASIA LOPEZ MD 09/27/16 Amlodipine Besylate (AMLODIPINE BESYLATE) 10 Mg Tablet, 1 TAB PO QDAY, #90 TAB 3 Refills Prov:ASIA LOPEZ MD 06/03/16 Reported Medications Losartan Potassium (LOSARTAN POTASSIUM) 50 Mg Tablet, 50 MG PO QDAY 08/06/17 Past Medical/Surgical History Patient has a past medical history of hypertension, hyperlipidemia, sarcoidosis , asthma, reflux, elevated PSA, BPH, frequent UTI, hypothyroidism, anxiety, bladder cancer, prostate cancer. Patient has surgical history of cholecystectomy, hernia repair, cystoscopy, prostatectomy, dental surgery, tonsillectomy. Reviewed Nurses Notes: Yes Hx Smoking: No Smoking Status: Never Smoker Exposure to Second Hand Smoke?: No Hx Substance Use Disorder: No Hx Alcohol Use: No Constitutional Vital Sign - Last 24 Hours 08/10/17 08/10/17 08/10/17 08/10/17 11:40 11:42 11:43 11:48 Temp 98.4 Pulse 78 Resp 16 B/P (MAP) 196/101 (132) 196/101 171/102 (125) 172/92 (118) Pulse Ox 96 O2 Delivery Room Air 08/10/17 08/10/17 08/10/17 08/10/17 11:50 12:00 12:05 12:13 Pulse 70 71 B/P (MAP) 169/92 (117) 160/89 (112) Pulse Ox 96 96 08/10/17 08/10/17 08/10/17 08/10/17 12:20 12:30 12:35 12:50 Pulse 64 65 61 B/P (MAP) 149/83 (105) Pulse Ox 96 96 96 08/10/17 08/10/17 08/10/17 08/10/17 13:00 13:05 13:20 13:30 Pulse 59 61 B/P (MAP) 168/87 (114) 170/89 (116) Pulse Ox 96 95 08/10/17 08/10/17 08/10/17 08/10/17 13:35 13:50 13:55 14:00 Pulse 60 61 58 58 B/P (MAP) 171/87 (115) Pulse Ox 96 94 94 93 08/10/17 08/10/17 08/10/17 14:15 14:30 15:00 Pulse 66 61 B/P (MAP) 175/91 (119) 178/93 (121) Pulse Ox 96 96 Physical Exam General Appearance: The patient is alert, has no immediate need for airway protection and no current signs of toxicity. Respiratory: Chest is non tender, lungs are clear to auscultation. Cardiac: regular rate and rhythm Gastrointestinal: Abdomen is soft and non tender, no masses, bowel sounds normal. Patient does have ileal conduit stoma located in right side of abdomen. Musculoskeletal: Neck: Neck is supple and non tender. Extremities have full range of motion and are non tender. Skin: No rashes or lesions. DIFFERENTIAL DIAGNOSIS: After history and physical exam differential diagnosis was considered for urinary tract infection, bleeding the urinary tract, kidney failure. Medical Decision Making Data Points Result Diagram: 08/10/17 1218 08/10/17 1218 Laboratory Hematology Test 08/10/17 11:48 08/10/17 12:18 08/10/17 12:32 Urine Granular Casts Many /LPF (NONE) Red Blood Count 3.80 M/uL (4.00-5.60) Mean Corpuscular Volume 82.7 fL (80.0-96.0) Mean Corpuscular Hemoglobin 28.7 pg (26.0-33.0) Mean Corpuscular Hemoglobin Concent 34.7 g/dL (32.0-36.0) Red Cell Distribution Width 13.7 % (11.5-14.5) Mean Platelet Volume 6.7 fL (7.2-11.1) Neutrophils (%) (Auto) 72.7 % (39.4-72.5) Lymphocytes (%) (Auto) 15.1 % (17.6-49.6) Monocytes (%) (Auto) 7.1 % (4.1-12.4) Eosinophils (%) (Auto) 4.3 % (0.4-6.7) Basophils (%) (Auto) 0.8 % (0.3-1.4) Nucleated RBC Relative Count (auto) 0.0 /100WBC Neutrophils # (Auto) 3.2 K/uL (2.0-7.4) Lymphocytes # (Auto) 0.7 K/uL (1.3-3.6) Monocytes # (Auto) 0.3 K/uL (0.3-1.0) Eosinophils # (Auto) 0.2 K/uL (0.0-0.5) Basophils # (Auto) 0.0 K/uL (0.0-0.1) Nucleated RBC Absolute Count (auto) 0.00 K/uL Sodium Level 142 mmol/L (137-145) Potassium Level 4.4 mmol/L (3.5-5.0) Chloride Level 110 mmol/L (98-107) Carbon Dioxide Level 16 mmol/L (22-30) Blood Urea Nitrogen 43 mg/dl (9-21) Creatinine 3.50 mg/dl (0.66-1.25) Glomerular Filtration Rate Calc 17.6 Random Glucose 105 mg/dl (75-110) Calcium Level 9.7 mg/dl (8.4-10.2) Total Bilirubin 0.4 mg/dl (0.2-1.3) Aspartate Amino Transf (AST/SGOT) 14 U/L (0-35) Alanine Aminotransferase (ALT/SGPT) 19 U/L (0-56) Alkaline Phosphatase 118 U/L (0-126) Total Protein 7.4 gm/dl (6.3-8.2) Albumin 3.9 g/dl (3.5-5.0) Urine Color Straw Urine Clarity Clear Urine pH 6.0 pH (4.8-9.5) Urine Specific [place] 1.006 Urine Protein Negative mg/dL (NEGATIVE) Urine Glucose (UA) Negative mg/dL (NEGATIVE) Urine Ketones Negative mg/dL (NEGATIVE) Urine Blood Moderate (NEGATIVE) Urine Nitrite Negative (NEGATIVE) Urine Bilirubin Negative (NEGATIVE) Urine Urobilinogen Negative mg/dL (0.2-1.9) Urine Leukocyte Esterase Small (NEGATIVE) Urine RBC 5 /HPF (0-2/HPF) Urine WBC 19 /HPF (0-5/HPF) Urine Squamous Epithelial Cells None /LPF (NONE-FEW) Urine Bacteria Few /HPF (NONE-FEW) Urine Mucus None /HPF (NONE-FEW) Chemistry Test 08/10/17 11:48 08/10/17 12:18 08/10/17 12:32 Urine Granular Casts Many /LPF (NONE) White Blood Count 4.4 k/uL (4.5-11.0) Red Blood Count 3.80 M/uL (4.00-5.60) Hemoglobin 10.9 g/dL (14.0-18.0) Hematocrit 31.5 % (42.0-52.0) Mean Corpuscular Volume 82.7 fL (80.0-96.0) Mean Corpuscular Hemoglobin 28.7 pg (26.0-33.0) Mean Corpuscular Hemoglobin Concent 34.7 g/dL (32.0-36.0) Red Cell Distribution Width 13.7 % (11.5-14.5) Platelet Count 120 K/uL (150-450) Mean Platelet Volume 6.7 fL (7.2-11.1) Neutrophils (%) (Auto) 72.7 % (39.4-72.5) Lymphocytes (%) (Auto) 15.1 % (17.6-49.6) Monocytes (%) (Auto) 7.1 % (4.1-12.4) Eosinophils (%) (Auto) 4.3 % (0.4-6.7) Basophils (%) (Auto) 0.8 % (0.3-1.4) Nucleated RBC Relative Count (auto) 0.0 /100WBC Neutrophils # (Auto) 3.2 K/uL (2.0-7.4) Lymphocytes # (Auto) 0.7 K/uL (1.3-3.6) Monocytes # (Auto) 0.3 K/uL (0.3-1.0) Eosinophils # (Auto) 0.2 K/uL (0.0-0.5) Basophils # (Auto) 0.0 K/uL (0.0-0.1) Nucleated RBC Absolute Count (auto) 0.00 K/uL Glomerular Filtration Rate Calc 17.6 Calcium Level 9.7 mg/dl (8.4-10.2) Total Bilirubin 0.4 mg/dl (0.2-1.3) Aspartate Amino Transf (AST/SGOT) 14 U/L (0-35) Alanine Aminotransferase (ALT/SGPT) 19 U/L (0-56) Alkaline Phosphatase 118 U/L (0-126) Total Protein 7.4 gm/dl (6.3-8.2) Albumin 3.9 g/dl (3.5-5.0) Urine Color Straw Urine Clarity Clear Urine pH 6.0 pH (4.8-9.5) Urine Specific [place] 1.006 Urine Protein Negative mg/dL (NEGATIVE) Urine Glucose (UA) Negative mg/dL (NEGATIVE) Urine Ketones Negative mg/dL (NEGATIVE) Urine Blood Moderate (NEGATIVE) Urine Nitrite Negative (NEGATIVE) Urine Bilirubin Negative (NEGATIVE) Urine Urobilinogen Negative mg/dL (0.2-1.9) Urine Leukocyte Esterase Small (NEGATIVE) Urine RBC 5 /HPF (0-2/HPF) Urine WBC 19 /HPF (0-5/HPF) Urine Squamous Epithelial Cells None /LPF (NONE-FEW) Urine Bacteria Few /HPF (NONE-FEW) Urine Mucus None /HPF (NONE-FEW) Urinalysis Test 08/10/17 11:48 08/10/17 12:32 Urine Granular Casts Many /LPF (NONE) Urine Color Straw Urine Clarity Clear Urine pH 6.0 pH (4.8-9.5) Urine Specific [place] 1.006 Urine Protein Negative mg/dL (NEGATIVE) Urine Glucose (UA) Negative mg/dL (NEGATIVE) Urine Ketones Negative mg/dL (NEGATIVE) Urine Blood Moderate (NEGATIVE) Urine Nitrite Negative (NEGATIVE) Urine Bilirubin Negative (NEGATIVE) Urine Urobilinogen Negative mg/dL (0.2-1.9) Urine Leukocyte Esterase Small (NEGATIVE) Urine RBC 5 /HPF (0-2/HPF) Urine WBC 19 /HPF (0-5/HPF) Urine Squamous Epithelial Cells None /LPF (NONE-FEW) Urine Bacteria Few /HPF (NONE-FEW) Urine Mucus None /HPF (NONE-FEW) ED Course/Re-evaluation ED Course Patient was admitted to an exam room, history and physical were obtained. Differential diagnoses were considered. On examination patient had no obvious blood in his urine. Lungs are clear, heart is regular. I was concerned about possible urinary tract infection and a urinalysis and CBC, CMP were done. The urinalysis initially showed large blood, 378 red blood cells per high-power field. As I was in getting history from patient and his , I noted that the urine showed no signs of blood. The dressing was changed for his stoma, while that was being that we were able to collect urine sample. Urine sample showed only 5 red blood cells per high-power field as well as moderate leukocyte esterase. Patient's creatinine did come back at 3.5, significantly different from 3.1 which he was at on Friday of last week. At that time I felt the need to consult with urology. I spoke with Dr. Dickens, urologist. He felt the patient probably needed to have nephrostomy tubes placed requested that I speak with the hospitals. I then spoke with Dr. Salinas, hospitalist, who agreed to accept the patient for admission. I discussed this with the patient and his and they verbalized understanding and agreement with plan. She'll be sent down by ambulance. Decision to Disposition Date: August 10, 2017 Decision to Disposition Time: 14:29 Depart Departure Latest Vital Signs Vital Signs Date Time Temp Pulse Resp B/P (MAP) Pulse Ox O2 Delivery O2 Flow Rate FiO2 08/10/17 15:00 61 178/93 (121) 96 08/10/17 11:42 98.4 16 Room Air Core Temperature (Celsius): 37.11 Impression: Primary Impression: Decreased renal function Additional Impression: Hydronephrosis Condition: Condition Unchanged Disposition: XFER TO ACUTE CARE HOSPITAL Referrals: ASIA LOPEZ MD (PCP) Problem Qualifiers Additional Impression: Hydronephrosis Hydronephrosis type: unspecified Qualified Codes: N13.30 - Unspecified hydronephrosis MARLENE ARTEAGA August 10, 2017 12:01
[2017-08-10 12:28] LABS: PLATELET COUNT, AUTOMATED 120 K/uL (150-450)
[2017-08-10 15:00] VITALS: BP 178/93
[2017-08-10] MEDS ORDERED: ALPRAZolam 0.5 MG TAB PO ONE (15:10)
== END 2017-08-10 15:18 | disposition short-term general hospital (02) ==
LOC: ER 11:58
DX: N13.30 Unspecified hydronephrosis (principal); N28.89 Other specified disorders of kidney and ureter
CPT/HCPCS: 81001; 82040; 82247; 82310; 82374; 82435; 82565; 82947; 84075; 84132; 84155; 84295; 84450; 84460; 84520; 85025; 99285

== ENCOUNTER → 2017-08-10 | Outpatient (CLI) | payer OTHER ==
[2017-07-24 07:29] VITALS: BMI 34.6
[~2017-08-10] MED LIST changes: -CITA-139 PO; +CITA-145 PO
== END ==
LOC: AMB 15:00
PROVIDERS: ATTEND Nurse Practitioner
DX: R31.9 Hematuria, unspecified (principal); M54.5 Low back pain
CPT/HCPCS: A0425; A0428

== ENCOUNTER 2017-08-18 09:53 | Outpatient (RCR) | payer OTHER ==
[2017-05-26 09:56] LABS: PLATELET COUNT, AUTOMATED 139 K/uL (150-450)
[2017-05-26 10:20] VITALS: BP 157/79
--- NOTE | 2017-05-26 12:51 | ONC Progress Note - NP.Halsey ---
Patient History Date of Service May 26, 2017 Reason For Visit/HPI Patient is seen in the clinic for follow up of his bladder cancer. Patient had labs today which were reviewed. 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 He has occasional shortness of breath with exercise and continues to have some mild fatigue. He was seen recently in the emergency room for inflammation around his urostomy site. He was started on antibiotic therapy and this is improving. Patient shares that he is having a stress test completed on June 19 for occasional episodes of chest pain and edema. Patient denies any chest pain or lower extremity edema today. Patient is scheduled for a CT of the chest abdomen and pelvis 08/05/2017 Problem List (1) Shortness of breath (2) Transitional cell bladder cancer Oncology History 1. The patient was diagnosed with Vin 7 early stage prostate cancer in 2013 with PSA of 4, [place] 7 (3+4), treated with total prostatectomy. No therapy since. 2. 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 He required considerable magnesium replacement with this. He then had surgery on April 22, 2016, which showed excellent response to chemotherapy, margins negative. No mamta involvement. No systemic disease. Patient has had bilateral blockage of the ureters and has required bilateral stent placement. Medical History Family History: FH: breast cancer MOTHER, , Age:65, Onset:58 FH: lymphoma MOTHER, , Age:65, Onset:58 FH: prostate cancer FATHER, Onset:62 FHx: heart disease FATHER Psychosocial History Social History Patient is . 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 [employer] Alcohol History He denies use Recreational Drug History He denies use Smoking History: No Smoking Status: Never Smoker Exposure to Second Hand Smoke?: No Medications and Allergies Active Scripts Nystatin 100,000 Unit/Gm Top Powder (NYSTATIN 100,000 UNIT/GM TOP POWDER) 15 Gm Powder, 15 GM TP BID for 10 Days, #1 TUBE 0 Refills Prov:BERTO ZAMUDIO MD 05/22/17 Hydrocortisone 2.5 % 30 GM CREAM (Hydrocortisone 2.5 % 30 GM CREAM) 2.5 % Cream.appl, 1 APPLIC TOP BID for 30 Days, #30 GM 1 Refill Prov:HIMANSHU VELEZ 04/17/17 Alprazolam (XANAX) 0.5 Mg Tablet, 0.5 TAB PO BID Y for ANXIETY, #60 TAB Prov:ASIA LOPEZ MD 04/16/17 Rosuvastatin Calcium (Rosuvastatin Calcium) 20 Mg Tablet, 1 TAB PO DAILY, #90 TAB 3 Refills Prov:ASIA LOPEZ MD 04/03/17 Levothyroxine Sodium (LEVOTHYROXINE SODIUM) 50 Mcg Tablet, 1 TAB PO QAM, #90 TAB 3 Refills Prov:ASIA LOPEZ MD 10/14/16 Metoprolol Succinate (METOPROLOL SUCCINATE) 50 Mg Tab.er.24h, 0.5 TAB PO DAILY, #90 TAB 3 Refills Prov:ASIA LOPEZ MD 09/27/16 Amlodipine Besylate (AMLODIPINE BESYLATE) 10 Mg Tablet, 1 TAB PO QDAY, #90 TAB 3 Refills Prov:ASIA LOPEZ MD 06/03/16 Reported Medications [Vitamin B 12] No Conflict Check 05/09/17 Losartan Potassium (COZAAR) 25 Mg Tablet, 25 MG PO BID 04/03/17 Citalopram Hydrobromide (CITALOPRAM HBR) 20 Mg Tablet, 20 MG PO QDAY, #5 TAB 06/17/16 Allergies: Coded Allergies: No Known Drug Allergies (Unverified , 05/22/17) Review of System/Physical Exam Review of Systems All Systems Reviewed/Normal: Yes, Except as Noted Cardiovascular: Positive for Chest Pain (see above) Respiratory: Positive for Shortness of Breath (with exercise) Genitourinary: Positive for Other (inflammation around the urostomy site, patient currently on antibiotics) Hematologic: Positive for Fatigue (very mild) Physical Exam Vital Signs Temperature: 97.5 Pulse: 61 BP Systolic: 157 BP Diastolic: 79 Respiratory Rate: 16 O2 SAT: 93 O2 Delivery: Height (inches) 70.00 Weight lb: 230 Weight oz: 9.0 Weight Kg (Roderick): [id number] Pain: 0 ECOG Score: 0 General: Stable, Well Developed, Well Nourished, Not In Acute Distress HEENT: No Trauma, No Icterus, No Mucositis, No Oral Thrush Neck: Supple Lungs: Clear to Auscultation Heart: Regular Rate, Regular Rhythm, No Gallops, No Murmurs Abdomen: Soft and Nontender, No Hepatosplenomegaly, No Masses Extremities: No Cyanosis, No Edema Lymphadenopathy: No Cervical Psychiatric: Mood appears normal, Affect appears normal Skin: No Skin Rashes, No Bruising, No Purpura Diagnostic Studies Diagnostic Studies Laboratory Laboratory Tests 05/26/17 09:50 Laboratory Tests 05/26/17 09:50: White Blood Count 5.4, Red Blood Count 4.31, Hemoglobin 12.3, Hematocrit 36.0, Mean Corpuscular Volume 83.6, Mean Corpuscular Hemoglobin 28.6, Mean Corpuscular Hemoglobin Concent 34.2, Red Cell Distribution Width 15.0, Platelet Count 139, Mean Platelet Volume 6.7, Neutrophils (%) (Auto) 70.0, Lymphocytes (% ) (Auto) 17.5, Monocytes (%) (Auto) 5.7, Eosinophils (%) (Auto) 5.6, Basophils ( %) (Auto) 1.2, Nucleated RBC Relative Count (auto) 0.0, Neutrophils # (Auto) 3.8 , Lymphocytes # (Auto) 1.0, Monocytes # (Auto) 0.3, Eosinophils # (Auto) 0.3, Basophils # (Auto) 0.1, Nucleated RBC Absolute Count (auto) 0.00, Sodium Level 140, Potassium Level 4.3, Chloride Level 107, Carbon Dioxide Level 20, Blood Urea Nitrogen 28, Creatinine 2.40, Glomerular Filtration Rate Calc 27.2, Random Glucose 96, Calcium Level 9.6, Total Bilirubin 0.5, Aspartate Amino Transf (AST/ SGOT) 23, Alanine Aminotransferase (ALT/SGPT) 36, Alkaline Phosphatase 103, Total Protein 7.9, Albumin 4.5 Assessment and Plan Assessment & Plan Mr. Montes is a very pleasant 66-year-old gentleman with the following. 1. Muscle invasive bladder cancer, status post neoadjuvant chemotherapy and surgery with the chemotherapy starting in January 2016. He does have multiple lymph nodes that we see on scan that we are following. They appear to be stable. We will continue to watch these. He is scheduled for a CT chest abdomen and pelvis 08/05/2017 and will follow with Dr. Moralez to review the results. CBC and CMP will be repeated at that time as well. 2. History of prostate cancer, currently not an issue. 3. Recent pyelonephritis and multiple other issues related to Urology. Will follow with them. 4. Elevated creatinine level status post chemotherapy and surgery. She continues to follow with urology. Creatinine has remained stable. Patient is encouraged to call the clinic if he has questions or concerns prior to his next office visit I personally spent a total of 25 minutes. Of that 25 minutes was counseling/ coordination of patient's care. See my note above for details. HOWARD RAY [employer]ER-BC, ONC May 26, 2017 12:51
[2017-05-26 15:06] VITALS: BP 157/79
[2017-07-24 07:29] VITALS: Wt 105.9 kg
[~2017-08-18 09:53] MED LIST changes: +ALTEPLASE RECOMB 2 MG VIAL IVP PRN; -CITA-139 PO; +CITA-145 PO; +DEXTROSE 5%(*) 100 ML BAG 100 ML IVPB PRN; +HEPARIN FLSH (PORT) 500 UN/5ML IVP PRN; +LIDOCAINE/SOD BICARB 8.4% SYR ID PRN; +NS(*) 0.9% 100 ML BAG 100 ML IVPB PRN; +NS(*) 0.9% 500 ML BAG 500 ML IV PRN; +WATER STERILE 10 ML VIAL IVP PRN
[2017-08-18 09:58] VITALS: BP 154/78
--- NOTE | 2017-08-19 20:46 | ONCOLOGY FOLLOW UP NOTE ---
EVENT DATE: August 18, 2017 CHIEF COMPLAINT/REASON FOR Visit Mr. Montes is a very pleasant 67-year-old gentleman with a history of muscle invasive bladder cancer status post neoadjuvant chemotherapy in January 2016 with cisplatin and Gemzar followed by subsequent radical cystectomy, here for followup after a recent hospitalization and need for bilateral nephrostomy tubes. HISTORY OF PRESENT ILLNESS Mr. Mancini returns. His biggest issue seems to be more urologic and related to chemotherapy and surgery as opposed to relapse of his cancer. I reviewed recent CT imaging from last month. While we cannot rule out a small malignancy in the ureters that we cannot see on imaging, I would not expect this to be causing bilateral problems. He follows closely with Dr. Armando in Urology and has a follow-up procedure tomorrow in [place]. He currently has two urostomy tubes again. He has noted minimal hematuria in the left tube recently with pink urine, but nothing on the right. This is not unusual and seemed to be a very small amount. Other than the kidney problems and this issue he otherwise feels well. No concerning lumps or bumps. He does struggle with survivorship and dealing with similarly depression/anxiety related to his diagnosis, but is seeing a counselor and this is helping quite a bit. No significant fevers, chills, weight change or any other symptoms of concern. ONCOLOGIC HISTORY 1. The patient was diagnosed with Vin 7 early stage prostate cancer in 2013 with PSA of 4, Vin 7 (3+4), treated with total prostatectomy. No therapy since. 2. 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 He required considerable magnesium replacement with this. He then had surgery on April 22, 2016, which showed excellent response to chemotherapy, margins negative. No mamta involvement. No systemic disease. Hopefully cured with this regimen, currently in recovery and survivorship. PAST MEDICAL/SURGICAL HISTORY 1. Prostate cancer. 2. Transitional cell bladder cancer, status post chemotherapy, surgery. 3. Episode of CHF after surgery, recovered. FAMILY HISTORY Remarkable for breast cancer in the mother as well as lymphoma in the mother. Prostate cancer in the father. Family history remarkable also for heart disease in the family. SOCIAL HISTORY The patient is and presented with his today. Overall sedentary lifestyle. Never smoker. REVIEW OF SYSTEMS CONSTITUTIONAL: No fevers, chills. Positive fatigue. HEENT: No headache or vision changes. CARDIOVASCULAR: No chest pain, dyspnea on exertion or edema. He did develop CHF in the past, but no recent exacerbations. RESPIRATORY: No shortness of breath, wheeze, cough. GASTROINTESTINAL: No nausea, vomiting. GENITOURINARY: No dysuria or hematuria. ENDOCRINE: No heat or cold intolerance. PSYCHIATRIC: No anxiety or depression. Currently he has grieved his diagnosis and has worked with a counselor and this has been very helpful. SKIN: No concerning lumps or bumps. MUSCULOSKELETAL: No significant weakness or joint pain. The remainder of the 14-point review of systems is otherwise negative. PHYSICAL EXAMINATION VITAL SIGNS: Blood pressure 154/78, pulse 62, respiratory rate 16, temperature 97.7 Fahrenheit, oxygen saturation 96% on room air. Weight 105.9 kg. Pain 3/10 , fatigue 0/10. GENERAL: In stable condition, resting comfortably in the chair. ECOG performance status of 1. CARDIOVASCULAR: Regular rate and rhythm. LUNGS: Clear. ABDOMEN: Soft, nontender. MUSCULOSKELETAL: He has two urostomy tubes present in his back with minimal tenderness at their insertion site. No significant erythema or discharge under bandage. PSYCHIATRIC: Normal mood and affect today. EXTREMITIES: No clubbing, cyanosis or edema. LYMPHATIC: No appreciable cervical, supraclavicular or axillary adenopathy. Remainder of his physical exam is otherwise unremarkable. IMPRESSION AND PLAN Mr. Montes is a very pleasant 67-year-old gentleman with the followin. Muscle invasive bladder cancer status post neoadjuvant chemotherapy and surgery with the chemotherapy starting in January 2016. 2. History of prostate cancer, currently not an issue. 3. Multiple urology issues since his surgery. He required recent nephrostomy tubes again. He has followup with Urology. While I agree with Dr. Armando, we cannot rule out rule out an occult malignancy that we do not see on imaging. I believe it would be unusual to be having bilateral severe hydronephrosis issues at this time. Greatly appreciate their management and helping him with his current urology issues. Would like to see him back every three months with at least labs. Will get scans again in six months unless Dr. Armando requires them sooner, in that which I anticipate he will. Answered all of his questions today. Billing: Return visit level 5 Total time 45 minutes, counseling time 30. MTDD
[2017-08-21] MEDS ORDERED: HYDR-385 PO (13:47)
== END 2017-08-21 ==
LOC: ONC 09:53
PROVIDERS: ATTEND Internal Medicine
DX: Z85.51 Personal history of malignant neoplasm of bladder (principal); Z85.46 Personal history of malignant neoplasm of prostate; Z92.21 Personal history of antineoplastic chemotherapy; R53.83 Other fatigue; R06.02 Shortness of breath; Z79.899 Other long term (current) drug therapy
CPT/HCPCS: 36415; 82040; 82247; 82310; 82374; 82435; 82565; 82947; 84075; 84132; 84155; 84295; 84450; 84460; 84520; 85025; 99212

== ENCOUNTER → 2017-08-25 | Outpatient (CLI) | payer OTHER ==
[2017-07-24 07:29] VITALS: BMI 34.6
[~2017-08-25] MED LIST changes: -ALTEPLASE RECOMB 2 MG VIAL IVP PRN; -DEXTROSE 5%(*) 100 ML BAG 100 ML IVPB PRN; -HEPARIN FLSH (PORT) 500 UN/5ML IVP PRN; -LIDOCAINE/SOD BICARB 8.4% SYR ID PRN; -NS(*) 0.9% 100 ML BAG 100 ML IVPB PRN; -NS(*) 0.9% 500 ML BAG 500 ML IV PRN; -WATER STERILE 10 ML VIAL IVP PRN
[2017-08-25 14:49] LABS: PLATELET COUNT, AUTOMATED 199 K/uL (150-450)
== END ==
LOC: LAB 14:15
PROVIDERS: ATTEND Physician Assistant
DX: I12.9 Hypertensive chronic kidney disease with stage 1 through stage 4 chronic kidney disease, or unspecified chronic kidney disease (principal); D50.9 Iron deficiency anemia, unspecified; E83.42 Hypomagnesemia; R80.1 Persistent proteinuria, unspecified; N17.9 Acute kidney failure, unspecified; N18.3 Chronic kidney disease, stage 3 (moderate)
CPT/HCPCS: 36415; 82310; 82374; 82435; 82565; 82728; 82947; 83540; 83550; 83735; 84100; 84132; 84295; 84520; 85025

== ENCOUNTER → 2017-09-08 | Outpatient (CLI) | payer OTHER ==
[2017-07-24 07:29] VITALS: BMI 34.6
[~2017-09-08] MED LIST changes: +BUPR-472 PO
== END ==
LOC: LAB 13:47
PROVIDERS: ATTEND Emergency Medicine
DX: E03.9 Hypothyroidism, unspecified (principal); N18.4 Chronic kidney disease, stage 4 (severe)
CPT/HCPCS: 36415; 82310; 82374; 82435; 82565; 82947; 84132; 84295; 84443; 84520

== ENCOUNTER → 2017-10-16 | Outpatient (CLI) | payer OTHER ==
[2017-07-24 07:29] VITALS: BMI 34.6
[~2017-10-16] MED LIST changes: +FERR324T16 PO; +IPRA3AMP10 IH; -IPRA3AMP21 IH; -ROSU20TA13 PO; +ROSU20TA5 PO; -SPIR25TA78 PO; +SPIR25TA80 PO
[2017-10-16 14:57] LABS: PLATELET COUNT, AUTOMATED 125 K/uL (150-450)
--- NOTE | 2017-10-16 16:40 | RADIOLOGY IMAGING REPORT ---
FACILITY: [facility] PATIENT NAME: Christiano Montes : 1950 MR: [id number] V: [id number] EXAM DATE: ORDERING PHYSICIAN: ASIA LOPEZ TECHNOLOGIST: Location: [facility] [place] Patient: Christiano Montes : 1950 Visit/Account:[id number] Date of Sevice: 10/16/2017 KIDNEYS HISTORY: Bladder cancer, history of cystectomy and ileal conduit COMPARISON: CT 07/23/2017 that showed severe hydronephrosis bilaterally FINDINGS: Kidneys: Right kidney- 13.2 x 6.3 x 6.6 cm with normal parenchymal thickness and echogenicity. No ultrasound evident renal mass lesion or stone. Left kidney- 11.2 x 6.6 x 5.8 cm with normal parenchymal thickness and echogenicity. There is a simp le exophytic cyst arising from the lower pole measuring 3.2 cm Uniform and symmetric blood flow in each kidney by Doppler ultrasound. Hydronephrosis: There is symmetric severe bilateral hydronephrosis. Bladder: Surgically absent, no masses are identified within the pelvis. . Abdominal aorta and IVC: Patent by Doppler ultrasound. IMPRESSION: Stable severe bilateral hydronephrosis. Report Dictated By: Shravan Waldron at 10/16/2017 4:31 PM Report E-Signed By: Shravan Waldron at 10/16/2017 4:35 PM WSN:[email or web address]
== END ==
LOC: LAB 14:28
PROVIDERS: ATTEND Emergency Medicine
DX: N13.30 Unspecified hydronephrosis (principal); Z90.6 Acquired absence of other parts of urinary tract
CPT/HCPCS: 36415; 76705; 82310; 82374; 82435; 82565; 82947; 84132; 84295; 84443; 84520; 85007; 85027

== ENCOUNTER → 2017-11-10 | Outpatient (CLI) | payer OTHER ==
[2017-07-24 07:29] VITALS: BMI 34.6
== END ==
LOC: LAB 11:49
PROVIDERS: ATTEND Urology
DX: N13.30 Unspecified hydronephrosis (principal)
CPT/HCPCS: 36415; 82310; 82374; 82435; 82565; 82947; 84132; 84295; 84520

== ENCOUNTER → 2018-01-05 | Outpatient (CLI) | payer OTHER ==
[2017-07-24 07:29] VITALS: BMI 34.6
[~2018-01-05] MED LIST changes: +AMLO-111 PO; +AMLO-113 PO; -AMLO-96 PO; -AMLO-99 PO; -LOSA25TA50 PO; +LOSA25TA52 PO; -LOSA50TA72 PO; +LOSA50TA74 PO
[2018-01-05 15:04] LABS: PLATELET COUNT, AUTOMATED 113 K/uL (150-450)
== END ==
LOC: LAB 14:38
PROVIDERS: ATTEND Internal Medicine Nephrology
DX: N18.3 Chronic kidney disease, stage 3 (moderate) (principal); N17.9 Acute kidney failure, unspecified; E87.2 Acidosis; E83.42 Hypomagnesemia; N13.30 Unspecified hydronephrosis
CPT/HCPCS: 36415; 82040; 82310; 82374; 82435; 82565; 82570; 82947; 83735; 83970; 84100; 84132; 84156; 84295; 84520; 85025

== ENCOUNTER → 2018-01-15 | Outpatient (CLI) | payer OTHER ==
[2017-07-24 07:29] VITALS: BMI 34.6
[~2018-01-15] MED LIST changes: +FLU180SY11 IM
--- NOTE | 2018-01-15 12:45 | RADIOLOGY IMAGING REPORT ---
FACILITY: [facility] PATIENT NAME: Christiano Montes : 1950 MR: [id number] V: [id number] EXAM DATE: ORDERING PHYSICIAN: ASIA LOPEZ TECHNOLOGIST: Location: [facility] [place] Patient: Christiano Montes : 1950 Visit/Account:[id number] Date of Sevice: 01/15/2018 HIPS BILATERAL Indication: Pain. Comparison: May 09, 2016 Findings: Ileal diversion catheter is no longer seen. Surgical sutures overlie the right lower quadrant abdome n. Moderate degenerative changes of each hip with bridging osteophytosis of the acetabulum and minimal f emoral head remodeling. Joint space narrowing superiorly, stable from prior. Negative periarticular calcifications. Mild lower lumbar spondylosis. Impression: 1. Moderate degenerative changes of each hip joint. Joint space narrowing seen superiorly. No signi ficant progression when compared to May 09, 2016 radiograph. Report Dictated By: Paul Martínez MD at 01/15/2018 12:38 PM Report E-Signed By: Paul Martínez MD at 01/15/2018 12:40 PM WSN:[id number]
== END ==
LOC: RAD 11:57
PROVIDERS: ATTEND Emergency Medicine
DX: M16.0 Bilateral primary osteoarthritis of hip (principal)
CPT/HCPCS: 73522

== ENCOUNTER → 2018-01-22 | Outpatient (CLI) | payer OTHER ==
[2017-07-24 07:29] VITALS: BMI 34.6
== END ==
LOC: LAB 12:19
PROVIDERS: ATTEND Internal Medicine Nephrology
DX: I12.9 Hypertensive chronic kidney disease with stage 1 through stage 4 chronic kidney disease, or unspecified chronic kidney disease (principal); N18.3 Chronic kidney disease, stage 3 (moderate)
CPT/HCPCS: 36415; 82310; 82374; 82435; 82565; 82728; 82947; 83540; 83550; 84132; 84295; 84520

== ENCOUNTER → 2018-01-22 | Outpatient (CLI) | payer OTHER ==
[2017-07-24 07:29] VITALS: BMI 34.6
== END ==
LOC: MRI 01:24
PROVIDERS: ATTEND Emergency Medicine
DX: Z02.9 Encounter for administrative examinations, unspecified (principal)

== ENCOUNTER → 2018-01-29 | Outpatient (CLI) | payer OTHER ==
[2017-07-24 07:29] VITALS: BMI 34.6
--- NOTE | 2018-01-29 16:02 | RADIOLOGY IMAGING REPORT ---
FACILITY: [facility] PATIENT NAME: Christiano Montes : 1950 MR: [id number] V: [id number] EXAM DATE: ORDERING PHYSICIAN: MARIA EUGENIA GANNON TECHNOLOGIST: Location: [facility] - [place] Patient: Christiano Montes : 1950 Visit/Account:[id number] Date of Sevice: 01/29/2018 ABDOMEN/PELVIS W/O CONTRAST HISTORY: Six month follow-up bladder cancer TECHNIQUE: Axial images acquired through the abdomen/pelvis. Coronal and sagittal reformatting also performed. No IV contrast administered.Dose Lowering Technique One of the following dose optimization techniques was utilized in the performance of this exam: Autom ated exposure control; adjustment of the mA and/or kV according to the patient's size; or use of an i terative reconstruction technique. Specific details can be referenced in the facility's radiology C T exam operational policy. COMPARISON: July 23, 2017 FINDINGS: Visualized lung bases: Basilar scarring appears stable Hepatobiliary: Postsurgical changes from a cholecystectomy Spleen: Negative. Adrenals: There is an 8 mm hypodense right adrenal nodule appears to been present previously althoug h was not ideally seen on the prior examination and may be slightly increased in size Pancreas: Negative. Kidneys ureters and bladder: Again noted are the post surgical changes from cystoprostatectomy. Both ureters remain dilated to the ileal conduit although there has been interval improvement of the bila teral hydronephrosis. There is moderate perinephric stranding bilaterally. Lower pole left renal cy st remains stable Genitalia: As above GI: There is no evidence of bowel obstruction Vessels/spaces/nodes: Mild retroperitoneal adenopathy remains stable. There are mild atheroscleroti c calcifications in the abdominal aorta and branch vessels Bones/soft tissues: Spondylotic changes of the thoracolumbar spine. Ileostomy in the right lower qu adrant Additional findings: None pertinent. IMPRESSION: 8 mm hypodense right adrenal nodule appears slightly increased in size when compared the prior study although was not well-seen on the prior examination. Postsurgical changes from cystoprostatectomy with ileal conduit. Both ureters remain dilated to the level of the ileal conduit although there has been interval improvement of the bilateral hydronephros is. Mild which peroneal adenopathy remains stable Report Dictated By: Lelo Sherman MD at 01/29/2018 3:40 PM Report E-Signed By: Lelo Sherman MD at 01/29/2018 3:58 PM WSN:[email or web address]
== END ==
LOC: CT 12:40
PROVIDERS: ATTEND Internal Medicine
DX: M47.895 Other spondylosis, thoracolumbar region (principal); R91.8 Other nonspecific abnormal finding of lung field; Z90.49 Acquired absence of other specified parts of digestive tract; R19.09 Other intra-abdominal and pelvic swelling, mass and lump; Z90.79 Acquired absence of other genital organ(s); Z93.2 Ileostomy status; N13.39 Other hydronephrosis
CPT/HCPCS: 74176

== ENCOUNTER 2018-02-09 06:51 | Outpatient (RCR) | payer OTHER ==
[2017-07-24 07:29] VITALS: Wt 116.9 kg
[2018-02-09 15:35] VITALS: BP 171/84
--- NOTE | 2018-02-10 17:42 | [facility]ER ONCOLOGY NOTE ---
DATE OF EVENT: February 09, 2018 CHIEF COMPLAINT/REASON FOR VISIT Mr. Montes is a very pleasant, 67-year-old gentleman who presents for followup for his bladder cancer. HISTORY OF PRESENT ILLNESS Mr. Montes returns. Please see my prior notes for additional details. INTERVAL HISTORY Overall, Christiano is doing quite well. His biggest complaint is that he is dealing with some psychiatric issues in his 41-year-old daughter (perhaps not his biologic daughter) who lives at home. This has been very challenging, and they are doing everything they can for this. We reviewed his CT abdomen and pelvis, which looks excellent with stable lymph nodes. No concerning findings other than a small, 8 mm nodule in the adrenal gland. He has no symptoms of concern, although he does have some fatigue. I feel the most appropriate step would be to watch this with a repeat exam in three to six months. Most likely with insurance, we will need to do it in six months. With regards to his other labs, they look well and are appropriate. ONCOLOGIC HISTORY 1. The patient was diagnosed with Vin 7 early stage prostate cancer in 2013 with PSA of 4, Vin 7 (3 + 4), treated with total prostatectomy. No therapy since. 2. 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 He required considerable magnesium replacement with this. He then had surgery on April 22, 2016, which showed excellent response to chemotherapy, margins negative. No mamta involvement. No systemic disease. Hopefully cured with this regimen, currently in recovery and survivorship. PAST MEDICAL/SURGICAL HISTORY 1. Prostate cancer. 2. Transitional cell bladder cancer, status post chemotherapy, surgery. 3. Episode of CHF after surgery, recovered. FAMILY HISTORY Remarkable for breast cancer in the mother as well as lymphoma in the mother. Prostate cancer in the father. Family history remarkable also for heart disease in the family. SOCIAL HISTORY The patient is and presented with his today. Overall sedentary lifestyle. Never smoker. REVIEW OF SYSTEMS CONSTITUTIONAL: No fevers, chills, weight change. HEENT: No headache or vision changes. CARDIOVASCULAR: No chest pain, dyspnea on exertion, or edema. RESPIRATORY: No shortness of breath, wheeze, cough. GASTROINTESTINAL: No nausea or vomiting. GENITOURINARY: No changes. NEUROLOGIC: No deficits. ENDOCRINE: No heat or cold intolerance. PSYCHIATRIC: No anxiety or depression. Remainder of 14-point review of systems otherwise negative. PHYSICAL EXAMINATION VITAL SIGNS: Blood pressure 174/84, pulse 56, respiratory rate 16, temperature 97.9 Fahrenheit, oxygen saturation 94% on room air. Weight 116.9 kg. Pain 5/10, fatigue zero/10. GENERAL: Stable condition, resting comfortably in the chair. ECOG performance status of 1. HEENT: Normocephalic, atraumatic. CARDIOVASCULAR: Regular rate and rhythm. LUNGS: Clear. ABDOMEN: Soft. EXTREMITIES: No clubbing, cyanosis, or edema. Remainder of physical exam otherwise unremarkable. IMPRESSION/REPORT/PLAN Mr. Montes is a pleasant, 67-year-old gentleman who presents for followup for his bladder cancer. Overall, I believe he is doing well. I reviewed the radiology reports in detail. We do need to follow an 8 mm adrenal gland nodule very closely. He has no symptoms from this. I do believe it has been noted on prior exams and may be slightly larger; however, given its subcentimeter size, we may just be seeing it more clearly on this CT scan compared to others. I explained this in detail to Mr. Montes the logic behind that statement. Regardless, we need to follow him closely, and I would like to get scans again in six months with labs. I answered all his questions today. BILLING Return visit level 4. Total time 30 minutes, counseling time 20. MTDD
== END 2018-03-04 13:22 | disposition home or self-care (01) ==
LOC: ONC 06:51
PROVIDERS: ATTEND Internal Medicine
DX: C67.9 Malignant neoplasm of bladder, unspecified (principal); E27.8 Other specified disorders of adrenal gland; R53.83 Other fatigue
CPT/HCPCS: 99212

== ENCOUNTER → 2018-02-11 | Outpatient (CLI) | payer OTHER ==
[2017-07-24 07:29] VITALS: BMI 34.6
[~2018-02-11] MED LIST changes: +GADOBENATE 529MG/1ML 15ML VIAL IVP ONE
--- NOTE | 2018-02-11 12:24 | RADIOLOGY IMAGING REPORT ---
FACILITY: [facility] PATIENT NAME: Christiano Montes : 1950 MR: [id number] V: [id number] EXAM DATE: ORDERING PHYSICIAN: ASIA LOPEZ TECHNOLOGIST: Location: [facility] Patient: Christiano Montes : 1950 Visit/Account:[id number] Date of Sevice: 02/11/2018 EXAMINATION: MRI Lumbar spine without and with intravenous contrast HISTORY: Low back pain. Left hip pain. COMPARISON: None available. TECHNIQUE: Multi-planar, multi-sequence lumbar spine MRI was performed before and after IV contrast. CONTRAST: 15 mL of IV MultiHance FINDINGS: Alignment: Normal. Vertebral marrow signal: Negative. Distal thoracic cord: Negative. Conus: negative, terminates at L1 Cauda equina: Negative. Paravertebral soft tissues: Negative. Visualized abdominal and pelvic structures: Negative. Enhancement pattern: Negative. Disc Spaces: Lower thoracic spine: Mild degenerative changes without stenosis. L1-2: Mild circumferential disc bulge with anterior disc osteophytes and mild facet hypertrophy. No s ignificant stenosis. L2-3: Mild circumferential disc bulge and facet hypertrophy. No significant stenosis. L3-4: Circumferential disc bulge and facet hypertrophy. No significant spinal canal stenosis. Mild bi lateral neural foraminal stenosis. L4-5: Circumferential disc bulge, facet hypertrophy, and ligamentum flavum thickening. Mild spinal ca nal stenosis. Moderate bilateral neural foraminal stenosis. L5-S1: Circumferential disc bulge and facet hypertrophy. No significant spinal canal stenosis. Mild r ight and moderate left neural foraminal stenosis. IMPRESSION: Multilevel degenerative disc disease and facet hypertrophy. Report Dictated By: Joss Gleason MD at 02/11/2018 12:14 PM Report E-Signed By: Joss Gleason MD at 02/11/2018 12:20 PM WSN:[email or web address]
== END ==
LOC: MRI 01:17
PROVIDERS: ATTEND Emergency Medicine
DX: M47.896 Other spondylosis, lumbar region (principal); M53.86 Other specified dorsopathies, lumbar region
CPT/HCPCS: 72158; A9577

== ENCOUNTER → 2018-07-07 | Outpatient (CLI) | payer OTHER ==
[2017-07-24 07:29] VITALS: BMI 34.6
[~2018-07-07] MED LIST changes: -AMLO-111 PO; -AMLO-113 PO; +AMLO-125 PO; +AMLO-127 PO; -GADOBENATE 529MG/1ML 15ML VIAL IVP ONE; -LOSA25TA52 PO; +LOSA25TA57 PO; -LOSA50TA74 PO; +LOSA50TA80 PO; +ONDA4TAB9 PO; -ROS10 PO; +ROSU10TA PO
[2018-07-07 11:20] LABS: PLATELET COUNT, AUTOMATED 114 K/uL (150-450)
[2018-07-07 11:24] LABS: INR 0.99
== END ==
LOC: LAB 10:34
PROVIDERS: ATTEND Emergency Medicine
DX: D69.6 Thrombocytopenia, unspecified (principal); E03.9 Hypothyroidism, unspecified; R60.0 Localized edema; R63.5 Abnormal weight gain
CPT/HCPCS: 36415; 82040; 82247; 82310; 82374; 82435; 82565; 82947; 83880; 84075; 84132; 84155; 84295; 84439; 84443; 84450; 84460; 84481; 84520; 85025; 85610

== ENCOUNTER → 2018-07-09 | Outpatient (CLI) | payer OTHER ==
[2017-07-24 07:29] VITALS: BMI 34.6
== END ==
LOC: RESP 01:38
PROVIDERS: ATTEND Emergency Medicine
DX: J98.4 Other disorders of lung (principal)
CPT/HCPCS: 94060; 94726; 94729

== ENCOUNTER 2018-07-13 17:42 | Emergency (ER) | payer OTHER ==
[2017-07-24 07:29] VITALS: Wt 117.9 kg
[2018-07-13 18:05] LABS: PLATELET COUNT, AUTOMATED 111 K/uL (150-450)
--- NOTE | 2018-07-13 18:10 | EKG ---
FACILITY: [facility] PATIENT NAME: ANKITA BLACKWOOD : [id number] MR: [id number] V: [id number] EXAM DATE: ORDERING PHYSICIAN: HOLDEN MILES TECHNOLOGIST: MATT Parsons Reason : CARDIAC Blood Pressure : / mmHG Vent. Rate : 062 BPM Atrial Rate : 062 BPM P-R Int : 172 ms QRS Dur : 100 ms QT Int : 440 ms P-R-T Axes : 069 043 023 degrees QTc Int : 446 ms Sinus rhythm with premature supraventricular complexes Possible left atrial enlargement Nonspecific ST findings inferior leads U waves are present Confirmed by MAKENZIE MALIK ([id number] on 07/14/2018 6:03:51 AM Referred By: Confirmed By:MAKENZIE MALIK
--- NOTE | 2018-07-13 18:16 | ER Report ---
History and Physical Time Seen By MD: 18:16 Hx. of Stated Complaint: chest pain for 3 days HPI/ROS CHIEF COMPLAINT: chest pain HISTORY OF PRESENT ILLNESS: This is a 67 year old male. He has been having chest pain for the last 3 days. Left side of chest. Thought he might had injured the muscles doing flys. Not getting better. Not short of breath. No nausea or vomiting. No recent illness, cough or fevers. Just started on levothyroxing for hypothyroidism. Blood pressure running high today, usually is normal. No headach e. No other musculoskeletal pain. Allergies: Coded Allergies: No Known Drug Allergies (Unverified , 03/30/18) Home Meds Active Scripts Levothyroxine Sodium (LEVOTHYROXINE SODIUM) 50 Mcg Tablet, 50 MCG PO QDAY, #60 TAB Prov:ASIA STYLES MD 07/08/18 Rosuvastatin Calcium (Rosuvastatin Calcium) 20 Mg Tablet, 1 TAB PO DAILY, #90 TAB 3 Refills Prov:ASIA STYLES MD 04/17/18 Alprazolam (XANAX) 0.5 Mg Tablet, 0.5 TAB PO BID PRN for ANXIETY, #50 TAB Prov:ASIA STYLES MD 03/13/18 Citalopram Hydrobromide (CELEXA) 40 Mg Tablet, 40 MG PO QDAY, #90 TAB 1 Refill Prov:ASIA STYLES MD 01/20/18 Metoprolol Succinate (METOPROLOL SUCCINATE) 50 Mg Tab.er.24h, 0.5 TAB PO DAILY, #45 TAB 3 Refills Prov:ASIA STYLES MD 11/03/17 Amlodipine Besylate (AMLODIPINE BESYLATE) 10 Mg Tablet, 1 TAB PO QDAY, #90 TAB 3 Refills Prov:ASIA STYLES MD 11/03/17 Reported Medications Losartan Potassium (LOSARTAN POTASSIUM) 25 Mg Tablet, 25 MG PO QDAY 01/09/18 Discontinued Reported Medications Ferrous Sulfate (FERROUS SULFATE) 324 Mg Tablet.dr, 324 MG PO DAILY 10/17/17 Discontinued Scripts Ondansetron 4 Mg Odt (ONDANSETRON 4 MG ODT) 4 Mg Tab.rapdis, 4 MG PO ONCE for 7 Days, #20 TAB Prov:HIEN EUCEDA MD 03/30/18 Ciprofloxacin Hcl 500 Mg Tab (CIPRO 500 MG TAB) 500 Mg Tablet, 500 MG PO BID, #20 0 Refills Prov:HIEN EUCEDA MD 03/30/18 Hydrocodone Bit/Acetaminophen (HYDROCODON-ACETAMINOPHEN 5-325) 1 Each Tablet, 1 EACH PO Q6H, #10 TAB Prov:ASIA STYLES MD 11/10/17 Nystatin 100,000 Unit/Gm Top Powder (NYSTATIN 100,000 UNIT/GM TOP POWDER) 15 Gm Powder, 15 GM TP BID for 10 Days, #1 TUBE 0 Refills Prov:BERTO ZAMUDIO MD 05/22/17 Reviewed Nurses Notes: Yes Hx Smoking: No Smoking Status: Never Smoker Exposure to Second Hand Smoke?: No Hx Substance Use Disorder: No Hx Alcohol Use: No Constitutional Vital Sign - Last 24 Hours 07/13/18 07/13/18 07/13/18 07/13/18 17:42 17:44 17:45 18:00 Temp 98.2 Pulse ??? 62 Resp 20 B/P (MAP) 197/114 (141) 197/114 190/101 (130) Pulse Ox 93 O2 Delivery Room Air 07/13/18 07/13/18 07/13/18 07/13/18 18:12 18:30 18:41 18:42 Pulse 57 55 Resp 17 15 B/P (MAP) 183/103 (129) 168/99 (122) Pulse Ox 92 93 07/13/18 07/13/18 07/13/18 07/13/18 18:55 19:00 19:05 19:23 Pulse 56 B/P (MAP) 187/103 (131) 188/109 (135) 173/98 (123) Pulse Ox 92 07/13/18 07/13/18 07/13/18 07/13/18 19:30 19:35 19:50 20:00 Pulse 51 51 Resp 16 14 B/P (MAP) 171/92 (118) 171/96 (121) Pulse Ox 92 92 07/13/18 07/13/18 07/13/18 07/13/18 20:05 20:20 20:30 20:35 Pulse 52 54 56 Resp 13 16 16 B/P (MAP) 170/105 (126) Pulse Ox 89 92 94 07/13/18 20:50 Pulse 55 Resp 17 Pulse Ox 92 Physical Exam General Appearance: The patient is alert. No acute distress. Eyes: Pupils are equal, round. No pallor, injection or icterus. ENT: Mucous membranes are moist. Normal oral mucosa. Posterior oropharynx is normal. Neck: Supple and non tender. No lymphadenopathy. Respiratory: Breathing easily and unlabored. Lungs are clear to auscultation. Cardiovascular: Bradycardia with a normal rhythm. No murmurs, gallops or rubs. Normal capillary refill. No edema. Gastrointestinal: Abdomen is soft and non tender. Nondistended. Normal active bowel sounds. No costovertebral angle tenderness with percussion. Neurological: Alert and oriented x3. No focal neurologic deficits Skin: Warm and dry. DIFFERENTIAL DIAGNOSIS: After history and physical exam, differential diagnosis was considered for chest pain including but not limited to myocardial ischemia, pericarditis pulmonary embolus, chest wall pain, pleural inflammation and pulmonary infectious causes. Medical Decision Making Data Points Result Diagram: 07/13/18 1757 07/13/18 1757 Laboratory Hematology Test 07/13/18 17:57 Red Blood Count 4.86 M/uL (4.00-5.60) Mean Corpuscular Volume 85.7 fL (80.0-96.0) Mean Corpuscular Hemoglobin 29.4 pg (26.0-33.0) Mean Corpuscular Hemoglobin Concent 34.3 g/dL (32.0-36.0) Red Cell Distribution Width 14.8 % (11.5-14.5) Mean Platelet Volume 7.3 fL (7.2-11.1) Neutrophils (%) (Auto) 66.9 % (39.4-72.5) Lymphocytes (%) (Auto) 18.1 % (17.6-49.6) Monocytes (%) (Auto) 8.1 % (4.1-12.4) Eosinophils (%) (Auto) 6.1 % (0.4-6.7) Basophils (%) (Auto) 0.8 % (0.3-1.4) Nucleated RBC Relative Count (auto) 0.2 /100WBC Neutrophils # (Auto) 3.7 K/uL (2.0-7.4) Lymphocytes # (Auto) 1.0 K/uL (1.3-3.6) Monocytes # (Auto) 0.4 K/uL (0.3-1.0) Eosinophils # (Auto) 0.3 K/uL (0.0-0.5) Basophils # (Auto) 0.0 K/uL (0.0-0.1) Nucleated RBC Absolute Count (auto) 0.01 K/uL D-Dimer Quantitative (PE/DVT) 0.37 ug/ml (0-0.50) Sodium Level 139 mmol/L (137-145) Potassium Level 3.7 mmol/L (3.5-5.0) Chloride Level 105 mmol/L (98-107) Carbon Dioxide Level 26 mmol/L (22-30) Blood Urea Nitrogen 20 mg/dl (9-21) Creatinine 1.70 mg/dl (0.66-1.25) Glomerular Filtration Rate Calc 40.4 Random Glucose 96 mg/dl (75-110) Calcium Level 9.2 mg/dl (8.4-10.2) Total Bilirubin 0.7 mg/dl (0.2-1.3) Aspartate Amino Transf (AST/SGOT) 38 U/L (0-35) Alanine Aminotransferase (ALT/SGPT) 51 U/L (0-56) Alkaline Phosphatase 85 U/L (0-126) Troponin I < 0.012 ng/ml B-Type Natriuretic Peptide 18 pg/ml (0-100) Total Protein 7.1 g/dl (6.3-8.2) Albumin 4.4 g/dl (3.5-5.0) Chemistry Test 07/13/18 17:57 White Blood Count 5.5 k/uL (4.5-11.0) Red Blood Count 4.86 M/uL (4.00-5.60) Hemoglobin 14.3 g/dL (14.0-18.0) Hematocrit 41.6 % (42.0-52.0) Mean Corpuscular Volume 85.7 fL (80.0-96.0) Mean Corpuscular Hemoglobin 29.4 pg (26.0-33.0) Mean Corpuscular Hemoglobin Concent 34.3 g/dL (32.0-36.0) Red Cell Distribution Width 14.8 % (11.5-14.5) Platelet Count 111 K/uL (150-450) Mean Platelet Volume 7.3 fL (7.2-11.1) Neutrophils (%) (Auto) 66.9 % (39.4-72.5) Lymphocytes (%) (Auto) 18.1 % (17.6-49.6) Monocytes (%) (Auto) 8.1 % (4.1-12.4) Eosinophils (%) (Auto) 6.1 % (0.4-6.7) Basophils (%) (Auto) 0.8 % (0.3-1.4) Nucleated RBC Relative Count (auto) 0.2 /100WBC Neutrophils # (Auto) 3.7 K/uL (2.0-7.4) Lymphocytes # (Auto) 1.0 K/uL (1.3-3.6) Monocytes # (Auto) 0.4 K/uL (0.3-1.0) Eosinophils # (Auto) 0.3 K/uL (0.0-0.5) Basophils # (Auto) 0.0 K/uL (0.0-0.1) Nucleated RBC Absolute Count (auto) 0.01 K/uL D-Dimer Quantitative (PE/DVT) 0.37 ug/ml (0-0.50) Glomerular Filtration Rate Calc 40.4 Calcium Level 9.2 mg/dl (8.4-10.2) Total Bilirubin 0.7 mg/dl (0.2-1.3) Aspartate Amino Transf (AST/SGOT) 38 U/L (0-35) Alanine Aminotransferase (ALT/SGPT) 51 U/L (0-56) Alkaline Phosphatase 85 U/L (0-126) Troponin I < 0.012 ng/ml B-Type Natriuretic Peptide 18 pg/ml (0-100) Total Protein 7.1 g/dl (6.3-8.2) Albumin 4.4 g/dl (3.5-5.0) Coagulation Test 07/13/18 17:57 D-Dimer Quantitative (PE/DVT) 0.37 ug/ml EKG/Imaging EKG Interpretation 12 lead EKG: Rhythm: Normal sinus rhythm, rate 62 Candor: normal QRS: normal ST segments: normal Imaging 2 VIEWS CHEST INDICATION: chest pain COMPARISON: March 30, 2018. FINDINGS: Heart size within normal limits. There is no focal infiltrate or lobar consolidation. Mild chronic interstitial opacities with areas of linear scarring. There is no pneumothorax or pleural effusion. IMPRESSION: 1. No acute cardiopulmonary process. Report Dictated By: Francisco Zavaleta MD at 07/13/2018 7:16 PM ED Course/Re-evaluation Clinical Indication for ER IV: IV Access ED Course For elevated blood pressure, gavve Vasotec 1.25mg IV, good results, but temporary. Added second dose of Losartan 25mg PO. Workup for chest pain negative as noted. For blood pressure, would not recommend increasing Metoprolol due to bradycardia. Amlodipine already at 10mg. Losartan to 50mg is an option, but renal function is a concern and recommended talking to his [employer] or [facility] about their preferences for this. Decision to Disposition Date: Jul 13, 2018 Decision to Disposition Time: 20:43 Depart Departure Latest Vital Signs Vital Signs Date Time Temp Pulse Resp B/P (MAP) Pulse Ox O2 Delivery O2 Flow Rate FiO2 07/13/18 20:50 55 17 92 07/13/18 20:30 170/105 (126) 07/13/18 17:45 98.2 Room Air Core Temperature (Celsius): 37.11 Impression: Primary Impression: Hypertension Additional Impression: Chest pain Condition: Improved Disposition: HOME OR SELF-CARE Referrals: ASIA STYLES MD (PCP) Patient Instructions: Chest Pain (ED), Hypertension (ED) Additional Instructions: We did not find an exact cause for your chest pain tonight. No sign of heart attack, blood clots, or infection. Your blood pressure was elevated, and seems a little better with a second dose of your Losartan. You will need to increase your blood pressure medicine, options include: 1. Metoprolol - increasing your Metoprolol dose to a full tablet once a day, but concern about your slower heart rate and this medicine increased could cause this to go slower. 2. Losartan - doubling this medicine (taking 50mg once a day for 25 mg twice a day), but can be hard on your kidney function. You would want to discuss this with Dr. Cifuentes, your pick[employer]. 3. Adding in an as needed medicine called Clonidine 0.1mg, up to twice a day as needed when blood pressure is high. This would not be a good medicine to use on a regular basis because of problems with severe elevations of blood pressure if you miss a dose. 4. You are already maxed out on you Amlodipine dose. Other medicines could be considered. Call your pick[employer] union office tomorrow to discuss further or see Dr. Styles for further evaluation. Problem Qualifiers Primary Impression: Hypertension Hypertension type: unspecified Qualified Codes: I10 - Essential (primary) hypertension Additional Impression: Chest pain Chest pain type: unspecified Qualified Codes: R07.9 - Chest pain, unspecified HILDA VEGA MD Jul 13, 2018 18:16
[2018-07-13] MEDS ORDERED: ENALAPRILAT 1.25 MG/ML VIAL IVP ONE (18:35)
--- NOTE | 2018-07-13 19:21 | RADIOLOGY IMAGING REPORT ---
FACILITY: [facility] [place] PATIENT NAME: Christiano Montes : 1950 MR: [id number] V: [id number] EXAM DATE: ORDERING PHYSICIAN: HILDA VEGA TECHNOLOGIST: Location: [facility] [place] Patient: Christiano Montes : 1950 Visit/Account:[id number] Date of Sevice: 07/13/2018 2 VIEWS CHEST INDICATION: chest pain COMPARISON: March 30, 2018. FINDINGS: Heart size within normal limits. There is no focal infiltrate or lobar consolidation. Mild chronic interstitial opacities with areas of linear scarring. There is no pneumothorax or pleural effusion. IMPRESSION: 1. No acute cardiopulmonary process. Report Dictated By: Francisco Zavaleta MD at 07/13/2018 7:16 PM Report E-Signed By: Francisco Zavaleta MD at 07/13/2018 7:17 PM WSN:[id number]
[2018-07-13] MEDS ORDERED: LOSARTAN POTASSIUM 50 MG TAB PO ONE (19:45)
[2018-07-13 20:30] VITALS: BP 170/105
[2018-07-14] MEDS ORDERED: ALPR-429 PO (12:37)
[2018-07-16] MEDS ORDERED: HYDR10TA20 PO (12:43)
== END 2018-07-13 21:05 | disposition home or self-care (01) ==
LOC: ER 18:12
DX: I10 Essential (primary) hypertension (principal); R07.9 Chest pain, unspecified; R00.1 Bradycardia, unspecified
CPT/HCPCS: 71046; 83880; 84484; 85025; 85379; 93005; 96374; 99284; J3490; 82040; 82247; 82310; 82374; 82435; 82565; 82947; 84075; 84132; 84155; 84295; 84450; 84460; 84520

== ENCOUNTER → 2018-08-21 | Outpatient (CLI) | payer OTHER ==
[2017-07-24 07:29] VITALS: BMI 34.6
[~2018-08-21] MED LIST changes: -DIPH0.5D12 IM; +DIPH0.5S2 IM; +HYDR10TA20 PO; +LEVO75TA73 PO; +LOSA100T75 PO; +UMEC62.5 INH
--- NOTE | 2018-08-21 14:41 | RADIOLOGY IMAGING REPORT ---
FACILITY: PATIENT NAME: Christiano Montes : 1950 MR: [id number] V: [id number] EXAM DATE: ORDERING PHYSICIAN: MARIA EUGENIA GANNON TECHNOLOGIST: Location: [facility] Patient: Christiano Montes : 1950 Visit/Account:[id number] Date of Sevice: 08/21/2018 CT ABDOMEN PELVIS W/O CON HISTORY: Six-month follow-up bladder cancer, history of surgery and chemotherapy TECHNIQUE: Axial images acquired through the abdomen/pelvis. Coronal and sagittal reformatting also performed. No IV contrast administered.Dose Lowering Technique One of the following dose optimization techniques was utilized in the performance of this exam: Autom ated exposure control; adjustment of the mA and/or kV according to the patient's size; or use of an i terative reconstruction technique. Specific details can be referenced in the facility's radiology C T exam operational policy. COMPARISON: The separate 2017 FINDINGS: Visualized lung bases: Bi basilar scarring is unchanged. Incompletely imaged is a 4 mm subpleural n odule lateral aspect of the lingula that appears unchanged as well Hepatobiliary: There postsurgical changes from a cholecystectomy. Liver is enlarged with the right lobe measuring 24.5 cm in length. There is a micronodular contour to the liver. . There are postsu rgical changes from a cholecystectomy Spleen: Mild splenomegaly remains unchanged Adrenals: 1 cm right adrenal mass appears unchanged Pancreas: Negative. Kidneys ureters and bladder: 3 cm exophytic left renal cyst again seen. There are postsurgical toth es from cystoprostatectomy with ureteral diversion to a neobladder in the anterior right midabdomen. Both ureters appear dilated to a similar degree when compared the prior study Genitalia: As above GI: There is diverticulosis of the sigmoid colon although no CT evidence of acute diverticulitis. S mall bowel anastomosis noted in the anterior left mid abdomen Vessels/spaces/nodes: Slightly prominent left para-aortic lymph node measuring 1.7 x 1.1 cm appears unchanged and is best seen on image 69 of series 2 shotty retroperitoneal lymph nodes appear similar to the prior examination Bones/soft tissues: No aggressive appearing bone lesions are seen Additional findings: None pertinent. IMPRESSION: Postsurgical changes from a cystoprostatectomy with ureteral diversion 20 oh bladder. The dilatation of the ureters appear some are to the prior study Hepatosplenomegaly Is a micronodular contour to the liver. This can be seen in cirrhosis although clinical correlation needed 1 cm right adrenal nodule is unchanged Additional chronic findings as described Report Dictated By: Lelo Sherman MD at 08/21/2018 2:17 PM Report E-Signed By: Lelo Sherman MD at 08/21/2018 2:37 PM WSN:[email or web address]
== END ==
LOC: CT 13:48
PROVIDERS: ATTEND Internal Medicine
DX: K76.0 Fatty (change of) liver, not elsewhere classified (principal); Z98.890 Other specified postprocedural states; R16.2 Hepatomegaly with splenomegaly, not elsewhere classified
CPT/HCPCS: 74176

== ENCOUNTER 2018-08-24 12:46 | Outpatient (RCR) | payer OTHER ==
[2017-07-24 07:29] VITALS: Wt 121.1 kg
[~2018-08-24 12:46] MED LIST changes: -LEVO75TA73 PO; -LOSA100T75 PO
[2018-08-24 12:47] VITALS: BP 168/86
[2018-08-24] MEDS ORDERED: LEVO75TA73 PO (15:41)
--- NOTE | 2018-08-25 19:43 | ONCOLOGY FOLLOW UP NOTE ---
EVENT DATE: August 24, 2018 CHIEF COMPLAINT/REASON FOR VISIT Mr. Montes is a pleasant 68-year-old gentleman with a history of muscle-invasive bladder cancer, status post neoadjuvant chemotherapy in January 2016 with cisplatin and Gemzaar, followed by subsequent radical cystectomy, here for followup. HISTORY OF PRESENT ILLNESS Mr. Montes returns. His biggest issues are related to his liver and kidneys. He has history with hypertensive urgency, and his industrial health engineer and primary care are working on this. He has a urostomy and has required tubes before. He follows closely with Dr. Blanchard and Dr. Armando in Urology in [place]. Overall, he is doing well. He had recent chest x-ray and CT scan of the abdomen and pelvis which, thankfully, showed no evidence of relapse. I am very encouraged by this. He has a distant history of prostate cancer from 2013 with no evidence of that as well. We do check his PSA periodically. No new symptoms of concern. Overall, he is doing much better than he was previously. He does struggle with survivorship and deals with simultaneous depression and anxiety. He has seen a counselor for this. No red flag symptoms of concern. ONCOLOGIC HISTORY 1. The patient was diagnosed with Vin 7 early stage prostate cancer in 2013 with PSA of 4, [place] 7 (3 + 4), treated with total prostatectomy. No therapy since. 2. 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 He required considerable magnesium replacement with this. He then had surgery on April 22, 2016, which showed excellent response to chemotherapy, margins negative. No mamta involvement. No systemic disease. Hopefully cured with this regimen, currently in recovery and survivorship. PAST MEDICAL/SURGICAL HISTORY 1. Prostate cancer. 2. Transitional cell bladder cancer, status post chemotherapy, surgery. 3. Episode of CHF after surgery, recovered. FAMILY HISTORY Remarkable for breast cancer in the mother as well as lymphoma in the mother. Prostate cancer in the father. Family history remarkable also for heart disease in the family. SOCIAL HISTORY The patient is and presented with his today. Overall sedentary lifestyle. Never smoker. REVIEW OF SYSTEMS CONSTITUTIONAL: No fevers, chills. Positive fatigue. HEENT: No headache or vision changes. CARDIOVASCULAR: No chest pain, dyspnea on exertion, or edema. He did develop CHF in the past, but no recent exacerbations. RESPIRATORY: No shortness of breath, wheeze, cough. GASTROINTESTINAL: No nausea, vomiting. GENITOURINARY: No dysuria or hematuria. ENDOCRINE: No heat or cold intolerance. PSYCHIATRIC: No anxiety or depression. Currently, he has grieved his diagnosis, has worked with a counselor, and this has been very helpful. SKIN: No concerning lumps or bumps. MUSCULOSKELETAL: No significant weakness or joint pain. PHYSICAL EXAMINATION VITAL SIGNS: Blood pressure 168/86, which is elevated, but slightly better than it has been for him, pulse 70, respiratory rate 16, temperature 98.5 Fahrenheit, oxygen saturation 90% on room air. Weight 121.1 kg. Pain 0/10. Fatigue 0/10. GENERAL: In stable condition, resting comfortably in the chair. ECOG Performance Status of 1. CARDIOVASCULAR: Regular rate and rhythm. LUNGS: Clear. ABDOMEN: Soft, nontender, nondistended. Obese. He has a urostomy in place, and the ostomy looks well. LYMPHATIC: No appreciable cervical, supraclavicular, axillary, or inguinal adenopathy. He was concerned about inguinal adenopathy, but I find nothing on exam. I reassured him. EXTREMITIES: No clubbing, cyanosis, or edema of significance. Remainder of physical exam otherwise unremarkable. IMPRESSION/REPORT/PLAN Mr. Montes is a very pleasant 68-year-old gentleman with the followin. Muscle invasive bladder cancer, status post neoadjuvant chemotherapy and surgery with the chemotherapy starting in January 2016. Can see him annually at this point. He sees Urology annually as well. He has numerous other medical conditions that require close followup with his primary care team. 2. History of prostate cancer since 2013, currently not an issue. Should check a PSA annually. 3. Urologic issues status post surgery. He continues to follow with Urology. 4. Hypertensive urgency. He is working with his industrial health engineer to try to improve his blood pressure regimen. BILLING Return visit level 4. Total time 30 minutes, counseling time 20. I answered all of his many questions today. CORTNEY
[2018-08-26] MEDS ORDERED: LOSA100T75 PO (13:23)
[2018-08-26] MEDS ORDERED: ALBU8.5H IH (13:50)
[2018-08-28] MEDS ORDERED: BUPR-472 PO (14:27)
[2018-09-08] MEDS ORDERED: CHOL200018 PO (11:22)
[2018-09-09] MEDS ORDERED: BUPR-472 PO (10:05)
[2018-09-09] MEDS ORDERED: CITA-157 PO (10:05)
[2018-09-17] MEDS ORDERED: LEV125 PO (15:08)
[2018-09-17] MEDS ORDERED: ALPR-429 PO (15:09)
[2018-09-17] MEDS ORDERED: HEPA1DIS3 IM (15:24)
== END 2018-10-05 14:48 | disposition home or self-care (01) ==
LOC: ONC 12:46
PROVIDERS: ATTEND Internal Medicine
DX: Z85.51 Personal history of malignant neoplasm of bladder (principal); Z85.46 Personal history of malignant neoplasm of prostate; I16.0 Hypertensive urgency
CPT/HCPCS: 99212

== ENCOUNTER → 2018-08-24 | Outpatient (CLI) | payer OTHER ==
[2017-07-24 07:29] VITALS: BMI 34.6
[2018-08-24 11:15] LABS: PLATELET COUNT, AUTOMATED 125 K/uL (150-450)
[2018-08-24 11:23] LABS: INR 1.03
== END ==
LOC: LAB 10:43
PROVIDERS: ATTEND Emergency Medicine
DX: K74.60 Unspecified cirrhosis of liver (principal); N18.3 Chronic kidney disease, stage 3 (moderate)
CPT/HCPCS: 36415; 82103; 82310; 82374; 82390; 82435; 82565; 82784; 82947; 83516; 84132; 84295; 84443; 84520; 85025; 85610; 86706; 86707; 87340; 87350

== ENCOUNTER 2018-09-11 00:41 | Day surgery (SDC) | payer OTHER ==
[2017-07-24 07:29] VITALS: Ht 177.8 cm; Wt 118.8 kg
[2018-09-11] VITALS (11 sets, daily range): BP systolic 131–166; BP diastolic 80–96
[~2018-09-11] VITALS: Ht 177.8 cm; Wt 118.8 kg
[~2018-09-11 00:41] MED LIST changes: +CHOL200018 PO; +LEVO75TA73 PO; +LOSA100T75 PO
[2018-09-11] MEDS ORDERED: DEXAMETHASONE SOD 4 MG/ML VIAL ONE (07:24)
[2018-09-11] MEDS ORDERED: PROPOFOL EMUL(*) 10MG/ML 20 ML 20 ML ONE (07:24)
[2018-09-11] MEDS ORDERED: LIDOCAINE MPF 1% 5 ML VIAL ONE (07:24)
[2018-09-11] MEDS ORDERED: ONDANSETRON 4 MG/2 ML VIAL ONE (07:24)
[2018-09-11] MEDS ORDERED: MIDAZOLAM 2 MG/2 ML VIAL ONE (07:52)
[2018-09-11] MEDS ORDERED: fentaNYL CITR 100 MCG/2 ML AMP ONE ×3 (07:52→10:21)
[2018-09-11] MEDS ORDERED: KETAMINE HCL-NS 50 MG/5 ML SYR ONE (07:52)
[2018-09-11] MEDS ORDERED: NORMOSOL R SOLN(*) 1000 ML BAG 1,000 ML IV PRN (08:00)
[2018-09-11] MEDS ORDERED: LIDOCAINE/SOD BICARB 8.4% SYR ID ONE (08:00)
[2018-09-11 08:26] LABS: INR 1.06
[2018-09-11] MEDS ORDERED: WATER FOR INJ STERILE ONE (09:40)
[2018-09-11] MEDS ORDERED: KETAMINE HCL 200 MG/20 ML MDV ONE (09:42)
--- NOTE | 2018-09-11 10:54 | NUR ---
HGB STABLE. PAIN DECREASING. PT. REPORTS MORE COMFORTABLE. BP REMAINS ELEVATED, BUT AT PT.'S BASELINE. WILL CONTINUE TO MONITOR.
--- NOTE | 2018-09-11 11:12 | NUR ---
bp cuff changed. large bp cuff placed on pt. for more accurate reading.
--- NOTE | 2018-09-11 13:09 | NUR ---
PT. REPORTS PAIN IS RETURNING. REPORTS TOLERABLE. RADIOLOGIST WROTE FOR APAP ON DISCHARGED. CALLED DR. LOPEZ'S OFFICE TO VERIFY IF OKAY.
--- NOTE | 2018-09-11 15:56 | RADIOLOGY IMAGING REPORT ---
FACILITY: [facility] - [place] PATIENT NAME: Christiano Montes : 1950 MR: [id number] V: [id number] EXAM DATE: ORDERING PHYSICIAN: ASIA LOPEZ TECHNOLOGIST: Location: [facility] Patient: Christiano Montes : 1950 Visit/Account:[id number] Date of Sevice: 09/11/2018 Exam type: CT GUIDED BIOPSY LIVER History: Cirrhosis of liver Comparison: CT abdomen pelvis August 21, 2018. Findings: Informed consent was obtained. Moderate sedation was supplied by the anesthesiologist. Multiple axi al images were obtained through the abdomen without IV contrast. Dose Lowering Technique One of the following dose optimization techniques was utilized in the performance of this exam: Autom ated exposure control; adjustment of the mA and/or kV according to the patient's size; or use of an i terative reconstruction technique. Specific details can be referenced in the facility's radiology C T exam operational policy. The right-sided the patient's abdomen was prepped and draped in usual sterile fashion. Localization was Augusto 1% lidocaine. Under CT guidance a 19-gauge trocar was advanced percutaneously to the edg e of the right lobe of the liver. Four 20-gauge core biopsies were obtained, placed in formalin and sent to laboratory for evaluation. The procedure was accomplished that apparent competition. The pa tient was sent to the PACU for four hours of observation. IMPRESSION: 1. Successful CT-guided liver biopsy Report Dictated By: Lelo Sherman MD at 09/11/2018 2:34 PM Report E-Signed By: Lelo Sherman MD at 09/11/2018 3:51 PM WSN:[email or web address]
== END 2018-09-11 13:55 | disposition home or self-care (01) ==
LOC: OR 00:41
PROVIDERS: ATTEND Radiology Diagnostic Radiology
DX: K74.60 Unspecified cirrhosis of liver (principal)
CPT/HCPCS: 36415; 47000; 77012; 85018; 85049; 85610; 85730; 88305; 88313; J1100; J2250; J2405; J2704; J3010; J3490; J2001

== ENCOUNTER → 2018-09-17 | Outpatient (CLI) | payer OTHER ==
[2017-07-24 07:29] VITALS: BMI 34.6
[~2018-09-17] MED LIST changes: +HEPA1DIS3 IM; +LEV125 PO
== END ==
LOC: LAB 15:04
PROVIDERS: ATTEND Emergency Medicine
DX: R73.09 Other abnormal glucose (principal)
CPT/HCPCS: 36415; 83036

== ENCOUNTER → 2018-11-23 | Outpatient (CLI) | payer OTHER ==
[2017-07-24 07:29] VITALS: BMI 34.6
== END ==
LOC: LAB 12:33
PROVIDERS: ATTEND Emergency Medicine
DX: Z02.9 Encounter for administrative examinations, unspecified (principal)

== ENCOUNTER → 2018-11-25 | Outpatient (CLI) | payer OTHER ==
[2017-07-24 07:29] VITALS: BMI 34.6
== END ==
LOC: LAB 15:30
PROVIDERS: ATTEND Emergency Medicine
DX: D69.6 Thrombocytopenia, unspecified (principal); E03.9 Hypothyroidism, unspecified; I10 Essential (primary) hypertension
CPT/HCPCS: 36415; 82310; 82374; 82435; 82565; 82607; 82746; 82947; 84132; 84295; 84443; 84520